=== PATIENT | female | born 1925 | race Caucasian/White ===

== ENCOUNTER 2017-08-25 17:36 | Inpatient (IN) ==
[2017-08-25] MEDS ORDERED: NS 1,000 ML IV ONE (18:02)
--- NOTE | 2017-08-25 18:06 | Emergency Department Report ---
SOB HPI - General Chief Complaint: Shortness of Breath/Dyspnea <Cathy Alejandro - 08/25/17 18:07> Stated Complaint: Weakness,aches <Cathy Alejandro - 08/25/17 18:07> Time Seen by Provider: 08/25/17 17:55 <Cathy Alejandro - 08/25/17 18:07> Source: patient, family () <Cathy Alejandor - 08/25/17 18:07> Mode of arrival: ambulatory <Cathy Alejandro - 08/25/17 18:07> Limitations: no limitations <Cathy Alejandro - 08/25/17 18:07> - History of Present Illness She was evaluated in ER a few days ago for weakness and shortness of breath. Had labs and chest xray and was diagnosed with pneumonia and sinusitis. Had been offered admission but she declined. She states that she has continued to get worse over the last few days. She has felt like she has had a fever but did not take her temp. She denies any nausea/vomiting or chest pain. She does not wear O2 at home but noted that her O2 sats are mid 70s on RA. She has been taking her Zithromax at home. Is wanting to be admitted since she is not feeling better at all. <Cathy Alejandro - 08/25/17 18:07> MD Complaint: shortness of breath <Cathy Alejandro - 08/25/17 18:07> Onset (ago): week(s) (for the last few weeks) <Cathy Alejandro - 08/25/17 18:07> Context: recent illness <Cathy Alejandro - 08/25/17 18:07> Severity: moderate <Cathy Alejandro - 08/25/17 18:07> Consistency/Duration: constant <Cathy Alejandro - 08/25/17 18:07> Relieving factors: nothing <Cathy Alejandro - 08/25/17 18:07> Exacerbating factors: exertion <Cathy Alejandro - 08/25/17 18:07> Known history of: other (pneumonia) <Cathy Alejandro - 08/25/17 18:07> Associated symptoms: fever, cough <Cathy Alejandro N - 08/25/17 18:07> Treatment prior to arrival: other (Zithromax) <Cathy Alejandro - 08/25/17 18:07> - Related Data Home Medications Medication Instructions Recorded Confirmed Losartan Potassium [Cozaar] 50 mg PO DAILY #0 08/11/11 08/25/17 Warfarin Sodium [Coumadin] 3 mg PO SUMOWEFR #0 04/25/15 08/25/17 Amlodipine [Norvasc] 5 mg PO DAILY 08/22/17 08/25/17 Aspirin [ASA] 325 mg PO PRN PRN 08/22/17 08/25/17 Cholecalciferol (Vitamin D3) 10,000 unit PO MOFR 08/22/17 08/25/17 [Maximum D3] Levothyroxine Tab [Synthroid] 88 mcg PO ACB 08/22/17 08/25/17 Warfarin [Coumadin] 2 mg PO TUTHSA 08/22/17 08/25/17 guaiFENesin [Mucinex] 600 mg PO Q12H PRN 08/22/17 08/25/17 Previous Rx's Medication Instructions Recorded Azithromycin 250 mg PO DAILY #6 tab 08/22/17 <Cathy Alejandro N - 08/25/17 18:07> Allergies Allergy/AdvReac Type Severity Reaction Status Date / Time cefadroxil Allergy Unknown Verified 08/25/17 17:54 ciprofloxacin AdvReac Intermediate UPSET Verified 08/25/17 17:54 STOMACH fluorouracil AdvReac Unknown Verified 08/25/17 17:54 gabapentin AdvReac Unknown Verified 08/25/17 17:54 sertalege AdvReac Mild Hallucinati Uncoded 08/22/17 12:22 ng <Cathy Alejandro N - 08/25/17 18:07> Review of Systems Constitutional: Reports: fever, chills, weakness <Cathy Alejandro - 08/25/17 18: 07> ENT: Denies: ear pain, throat pain, congestion <Cathy Alejandro - 08/25/17 18:07 > Cardiovascular: Denies: chest pain, palpitations, dyspnea on exertion, edema < Cathy Alejandro - 08/25/17 18:07> Respiratory: Reports: cough, dyspnea. Denies: wheezes, hemoptysis <Cathy Alejandro 08/25/17 18:07> Gastrointestinal: Denies: abdominal pain, nausea, vomiting, diarrhea <Cathy Alejandro 08/25/17 18:07> Integumentary: Denies: rash <Cathy Alejandro 08/25/17 18:07> Neurological: Denies: headache, weakness, numbness, paresthesias <Cathy Alejandro 08/25/17 18:07> [facility] Patient Stated Medical History Other HEENT Yes: sinus infection Hypertension Yes Hx Urinary Tract Infection Yes Clotting Problems Yes PE in the past Skin cancer with radiation Hypothyroidism <Cathy Alejandro 08/25/17 19:23> - Social History Smoking status: Never smoker <Cathy Alejandro 08/25/17 18:07> Physical Exam - Limitations Limitations: no limitations <Cathy Alejandro 08/25/17 18:07> - General General appearance: alert, in no apparent distress <Cathy Alejandro 08/25/17 18:07> - Normal Exams: ENMT:: No facial trauma, nasal exudates, pharyngeal erythema, or exudates are noted <Cathy Alejandro 08/25/17 18:07> Neck:: Full range of motion, without adenopathy, JVD, bruits or thyromegaly < Cathy Alejandro 08/25/17 18:07> Cardiovascular:: Regular rate and rhythm, without murmur or gallop, Pulses 2+ all extremities, capillary refill, <2 seconds all extremities <Cathy Alejandro 08/25/17 18:07> Abdomen:: Bowel sounds positive, soft, non-tender, non-distended, no hepatosplenomegaly, masses or bruits noted <Cathy Alejandro 08/25/17 18:07> Lymphatic:: No lymphadenopathy, or lymphedema noted <Cathy Alejandro 08/25/17 18:07> Integumentary:: No rashes, hives, or bruising noted <Cathy Alejandro 08/25/17 18:07> Neurological:: Patient is alert, and oriented <Cathy Alejandro - 08/25/17 18:07> Psychiatric:: Patient exhibits, appropriate attention, emotion and affect < Cathy Alejandro - 08/25/17 18:07> - Respiratory Respiratory exam: Present: crackles (in bilateral upper lobes) <Cathy Alejandro - 08/25/17 18:07> Course Vital Signs Temperature 98.4 F 08/25/17 17:40 Pulse Rate 93 08/25/17 17:40 Respiratory Rate 28 H 08/25/17 17:40 Blood Pressure 143/50 H 08/25/17 17:40 Pulse Oximetry 76 L 08/25/17 17:40 Temperature 98.6 F 08/25/17 21:15 Pulse Rate 76 08/25/17 21:37 Respiratory Rate 22 08/25/17 21:37 Blood Pressure 135/65 08/25/17 21:15 Pulse Oximetry 91 08/25/17 21:37 <Cathy Alejandro - 08/25/17 18:07> Shortness of Breath/Dyspnea - [facility] Narrative Medical decision making narrative: DD: dehydration, sepsis, pneumonia, UTI WBC is 10 with 82 neutrophils, 4 bands. INR is elevated at 4.11. Lactate is 2.0 , procalcitonin is normal. BUN 21, creatinine 1.5. Troponin is negative at 0.134. Did call and discuss findings of elevated troponin with Dr Schwartz. She does deny any chest pain and denies any cardiac history. He does agree to see patient in consult. Did speak with Dr Prather and she agrees to admission at this time. Chest xray does show pneumonia and she is allergic to Cipro and Cephalosporins. Unsure what her reaction is however. Has been on Zithromax. Dr Rivero will order antibiotic for admission course. <Cathy Alejandro - 08/25/17 22:02> - Lab Data Attestation: I reviewed the patient's lab results. <Cathy Alejandro - 08/25/17 22:02> Result diagrams: 08/25/17 18:36 08/25/17 18:36 <Cathy Alejandro - 08/25/17 18:07> Lab Results 08/25/17 08/25/17 08/25/17 Range/Units 18:36 18:36 18:36 WBC 10.0 (4.5-11.0) T/MM3 RBC 4.07 (4.00-5.20) M/MM3 Hgb 11.7 L (12-16) GM/DL Hct 36.2 (36-46) % MCV 88.9 (80-100) UM3 MCH 28.7 (26-34) UUG MCHC 32.3 (31-37) GM/DL RDW Std Deviation 44.5 (36.9-50.2) FL Plt Count 268 (130-400) T/MM3 MPV 10.8 (9.4-12.4) UM3 Immature Gran % (Auto) Not performed Neut % (Auto) Not performed Lymph % (Auto) Not performed Lea % (Auto) Not performed Eos % (Auto) Not performed Baso % (Auto) Not performed Neut # (Auto) Not performed Lymph # (Auto) Not performed Lea # (Auto) Not performed Eos # (Auto) Not performed Baso # (Auto) Not performed Abs Immat Gran (auto) Not performed Neutrophils % (Manual) 82.0 H (33-66) % Band Neutrophils % 4.0 (0-6) % Lymphocytes % (Manual) 5.0 L (23-45) % Monocytes % (Manual) 8.0 (0-9.0) % Eosinophils % (Manual) 1.0 (0-4) % Neutrophils # (Manual) 8.2 H (1.8-7.7) T/MM3 Band Neutrophils # 0.4 T/MM3 Lymphocytes # (Manual) 0.5 L (1-4.8) T/MM3 Monocytes # (Manual) 0.8 (0-0.8) T/MM3 Eosinophils # (Manual) 0.1 (0-0.5) T/MM3 Anisocytosis 1+ RBC Morph Comment Abnormal INR (0.99-1.21) Turbidity < 20 (0-20) Sodium 145 H (134-144) MEQ/L Potassium 3.8 (3.6-5) MEQ/L Chloride 110 H (98-107) MEQ/L Carbon Dioxide 25 (22-30) MEQ/L Anion Gap 10 (5-15) MEQ/L BUN 21.0 H (7-17) MG/DL Creatinine 1.5 H (0.7-1.2) MG/DL GFR Calculation 33 BUN/Creatinine Ratio 14 (6-26) RATIO Glucose 118 H (65-110) MG/DL Calculated Osmolality 283 H (261-280) MOSM/KG Calcium 8.7 (8.4-10.2) MG/DL Total Bilirubin 0.90 (0.20-1.30) MG/DL Icterus Index < 2 (0-7) AST 29 (14-36) U/L ALT 31 (9-52) U/L Alkaline Phosphatase 111 (38-126) U/L Troponin I 0.134 H (0-0.12) ng/ml Total Protein 7.2 (6.3-8.2) G/DL Albumin 3.2 L (3.5-5.0) G/DL Globulin 4.0 H (2.4-3.6) G/DL Albumin/Globulin Ratio 0.8 L (1.1-2.2) RATIO Plasma Lactate 2.0 (0.6-2.2) MMOL/L Procalcitonin 0.12 NG/ML Specimen Hemolysis < 15 (0-25) 08/25/17 Range/Units 18:37 WBC (4.5-11.0) T/MM3 RBC (4.00-5.20) M/MM3 Hgb (12-16) GM/DL Hct (36-46) % MCV (80-100) UM3 MCH (26-34) UUG MCHC (31-37) GM/DL RDW Std Deviation (36.9-50.2) FL Plt Count (130-400) T/MM3 MPV (9.4-12.4) UM3 Immature Gran % (Auto) Neut % (Auto) Lymph % (Auto) Lea % (Auto) Eos % (Auto) Baso % (Auto) Neut # (Auto) Lymph # (Auto) Lea # (Auto) Eos # (Auto) Baso # (Auto) Abs Immat Gran (auto) Neutrophils % (Manual) (33-66) % Band Neutrophils % (0-6) % Lymphocytes % (Manual) (23-45) % Monocytes % (Manual) (0-9.0) % Eosinophils % (Manual) (0-4) % Neutrophils # (Manual) (1.8-7.7) T/MM3 Band Neutrophils # T/MM3 Lymphocytes # (Manual) (1-4.8) T/MM3 Monocytes # (Manual) (0-0.8) T/MM3 Eosinophils # (Manual) (0-0.5) T/MM3 Anisocytosis RBC Morph Comment INR 4.11 H (0.99-1.21) Turbidity (0-20) Sodium (134-144) MEQ/L Potassium (3.6-5) MEQ/L Chloride (98-107) MEQ/L Carbon Dioxide (22-30) MEQ/L Anion Gap (5-15) MEQ/L BUN (7-17) MG/DL Creatinine (0.7-1.2) MG/DL GFR Calculation BUN/Creatinine Ratio (6-26) RATIO Glucose (65-110) MG/DL Calculated Osmolality (261-280) MOSM/KG Calcium (8.4-10.2) MG/DL Total Bilirubin (0.20-1.30) MG/DL Icterus Index (0-7) AST (14-36) U/L ALT (9-52) U/L Alkaline Phosphatase (38-126) U/L Troponin I (0-0.12) ng/ml Total Protein (6.3-8.2) G/DL Albumin (3.5-5.0) G/DL Globulin (2.4-3.6) G/DL Albumin/Globulin Ratio (1.1-2.2) RATIO Plasma Lactate (0.6-2.2) MMOL/L Procalcitonin NG/ML Specimen Hemolysis (0-25) <JavonCathy N - 08/25/17 19:21> - Radiology Data Attestation: I reviewed the patient's radiology results. < 19:30> CXR: Increased perihilar markings. Continued evidence of emphysema and pulm fibrosis. Likely superimposed PNA. <08/25/17 19:30> - EKG Data EKG #1 EKG attestation: Yes: I reviewed and interpreted this EKG. < 20:57> EKG shows normal: sinus rhythm, axis, intervals, QRS complexes, ST-T waves < 08/25/17 20:57> Rhythm: PAC's <MarchGovind M - 08/25/17 20:57> Disposition Clinical Impression: Hypoxia Pneumonia Qualifiers: Pneumonia type: due to unspecified organism Laterality: right Lung location: lower lobe of lung Qualified Code(s): J18.1 - Lobar pneumonia, unspecified organism <Cathy Alejandro N - 08/25/17 20:29> Disposition: 02 To [facility] [place] [facility] <Cathy Alejandro N - 08/25/17 20:29> Condition: Stable <Cathy Alejandro N - 08/25/17 20:29> Instructions: <Cathy Alejandro - 08/25/17 18:07> Prescriptions: No Action Aspirin [ASA] 325 mg PO PRN PRN PRN Reason: Pain Warfarin [Coumadin] 2 mg PO TUTHSA Amlodipine [Norvasc] 5 mg PO DAILY guaiFENesin [Mucinex] 600 mg PO Q12H PRN PRN Reason: Prn Orders Levothyroxine Tab [Synthroid] 88 mcg PO ACB Azithromycin 250 mg PO DAILY #6 tab Losartan Potassium [Cozaar] 50 mg PO DAILY #0 Warfarin Sodium [Coumadin] 3 mg PO SUMOWEFR #0 Cholecalciferol (Vitamin D3) [Maximum D3] 10,000 unit PO MOFR <Cathy Alejandro - 08/25/17 18:07> Referrals: Josh Gomes MD [Family Provider] - <Cathy Alejandro - 18:07> Forms: <Cathy Alejandro - 08/25/17 18:07> Time of Disposition: 20:29 <Cathy Alejandro - 08/25/17 20:29> - Seen By: midlevel <Cathy Alejandro - 08/25/17 20:29>
[2017-08-25] MEDS: SALINE FLUSH 10ml SYRINGE IVF PRN ×2 (18:39→21:39)
[2017-08-25] MEDS ORDERED: ONDANSETRON 4 MG/2 ML INJECTION IVP PRN (21:17)
[2017-08-25] MEDS ORDERED: DOCUSATE SODIUM 100 MG CAPSULE PO PRN (21:17)
--- NOTE | 2017-08-25 21:22 | History & Physical Report ---
<Alana Rivero Alecia - Last Filed: 08/25/17 22:43> History of Present Illness Date: 08/25/17 Chief complaint: SOA HPI: 89 yo F with PMH of PE currently on coumadin presented to the ED with reports of weakness and increased SOA. She was seen in the ED a few days ago and DX with PNA, sinusitis and started on Zithromax. She was offered admission, but declined at that time. She went home and did take her ABX as prescribed. But she continued to decline at home. She reports fevers and chills at home, but did not take her temp. She denies any nausea/vomiting or chest pain. She does not wear O2 at home but noted that her O2 sats are mid 70s on RA. She required 3 -4L NC to improve her sats. She was admitted for further care. PFSH - Social History Smoking status: Never smoker Medications Home Medications Medication Instructions Recorded Confirmed Type Losartan Potassium [Cozaar] 50 mg PO DAILY #0 08/11/11 08/25/17 History Warfarin Sodium [Coumadin] 3 mg PO SUMOWEFR #0 04/25/15 08/25/17 History Amlodipine [Norvasc] 5 mg PO DAILY 08/22/17 08/25/17 History Aspirin [ASA] 325 mg PO PRN PRN 08/22/17 08/25/17 History Cholecalciferol (Vitamin D3) 10,000 unit PO MOFR 08/22/17 08/25/17 History [Maximum D3] Levothyroxine Tab [Synthroid] 88 mcg PO ACB 08/22/17 08/25/17 History Warfarin [Coumadin] 2 mg PO TUTHSA 08/22/17 08/25/17 History guaiFENesin [Mucinex] 600 mg PO Q12H PRN 08/22/17 08/25/17 History Allergies Allergy/AdvReac Type Severity Reaction Status Date / Time gabapentin AdvReac Severe Hallucinati Verified 08/26/17 10:54 ng fluorouracil AdvReac Unknown Verified 08/25/17 17:54 sertalege AdvReac Mild Hallucinati Uncoded 08/22/17 12:22 ng Exam Vital Signs: Temperature 98.6 F 08/25/17 21:15 Pulse Rate 89 08/25/17 21:15 Respiratory Rate 18 08/25/17 21:15 Blood Pressure 135/65 08/25/17 21:15 Pulse Oximetry 90 08/25/17 20:45 - Routine Respiratory Exam Present: crackles (B/L lower lung zelaya). Absent: wheezes - Routine Cardiovascular Exam Present: RRR. Absent: murmur - Routine Abdominal Exam Present: soft, normoactive bowel sounds, non distended. Absent: tenderness - Routine Skin Exam Present: dry, warm - Routine Neurological Exam Present: alert, oriented X3, CN II-XII intact Results - Labs CBC & Chem 7: 08/25/17 18:36 08/25/17 18:36 Assessment and Plan (1) Hypoxia Current visit: Yes Status: Acute 08/25/17 22:40 Patient admitted and started on supplemental oxygen. Likely due to failure of outpatient treatment for CAP. start aggressive pulmonary toilet tonight. Attempt to titrate oxygen off during stay. (2) Pneumonia Current visit: Yes Status: Acute Patient on Zithromax as an outpatient, she failed this. Will start IV levaquin, mucinex and duonebs during her stay. She was not wheezing, will not order steroids at this time. repeat labs in the AM. 08/25/17 (3) Supratherapeutic INR Current visit: Yes Status: Acute 08/25/17 22:43 hold Coumadin for now. (4) Elevated troponin Current visit: Yes Status: Acute 08/25/17 22:42 Trend overnight. Cardiology to see in AM. DVT Prophylaxis: SCD's, Coumadin Resuscitation Status: Do Not Resuscitate Hospital Course Summary Disclaimer: The visit summary below is not to be considered part of the above Progress Note. <Monica Gonzalez - Last Filed: 08/26/17 11:37> History of Present Illness Date: 08/26/17 [facility] Patient Stated Medical History Glaucoma Yes Macular Degeneration Yes Other HEENT Yes: sinus infection Hypertension Yes Pneumonia Yes Pulmonary Embolism Yes Gastroesophageal Reflux Yes Disease Hx Urinary Tract Infection Yes Clotting Problems Yes Exam Vital Signs: Temperature 98.7 F 08/26/17 07:41 Pulse Rate 88 08/26/17 09:45 Respiratory Rate 18 08/26/17 09:44 Blood Pressure 133/69 08/26/17 08:30 Pulse Oximetry 91 08/26/17 10:15 Height/Weight/BMI: Height 5 ft 6 in Weight 190 lb 4.143 oz Body Mass Index 30.7 Results - Labs CBC & Chem 7: 08/26/17 01:11 08/26/17 01:11 Microbiology Results: Microbiology 08/26/17 06:42 Sputum, Expectorated Sputum Culture - Preliminary Culture Initiated - Results Pending Assessment and Plan (1) Pneumonia Current visit: Yes Status: Acute (2) Hypoxia Current visit: Yes Status: Acute (3) Supratherapeutic INR Current visit: Yes Status: Acute (4) Elevated troponin Current visit: Yes Status: Acute Assessment and Plan: Patient seen and examined, above reviewed with the findings above with the following additions. Informant is patient who is a somewhat vague historian, patient has been, and current records, computerized records. The patient is a 89-year-old white female who presents with a complaint of weakness for the last month which has been worsening to the point that she could hardly get from one chair to the other. She reports the weakness has been gradual over the last month. The patient reports when asked what her major problem is at this time that she has "sinus infection, inner ear infection, pneumonia". According to the patient ,she has had ongoing shortness of breath which is increased over the last month,occasionally present when she is laying still she. She can walk about 10 feet without becoming short of breath. She is currently on oxygen here in the hospital. She is not on oxygen at home. In addition she reports an occasional cough for the last 2-3 weeks, occasionally bloody in nature. Since starting azithromycin on Monday the amount of sputum has decreased. She also says it feels like the antibiotic helped loosen things in her throat and she's got some postnasal drip that is also bloody. The sinus symptoms she had earlier have improved she reports they're usually on involve the right side. 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 She does not know if she's been running a fever she has, she has not been recording her temperature, she does report she has occasional chills but no night sweats. The patient was initially seen in the emergency department on August 22 with weakness. At that time of her evaluation her temperature was 97.7, her pulse was 80, her respiratory rate was 18, her blood pressure was 144/65, and her O2 sat was 88% initially but increased to 98% an hour later. During that evaluation her d-dimer was 697, her INR was 2.38. Her white blood cell count was 6700 with 4.9% eosinophils 66% neutrophils 12.2% lymphocytes and 15.9% monocytes. On Monday, she was advised to be admitted to the hospital, but she declined. She was started on azithromycin with the diagnosis of atypical pneumonia, and sinusitis involving the maxillary area. She was given a azithromycin 500 mg by mouth loading in 2:15 milligrams daily for 4 days as well as Zyrtec. She reports some of her symptoms have improved on the azithromycin, but she still feels weak. She reported again to the emergency department yesterday with increasing shortness of breath. It was noted at that time her O2 sats were in the 70s on room air and she required 3-4 L of oxygen to improve her sats. She was admitted for further evaluation. 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 Josh Samayoa Fibromyalgia Recurrent dizziness Past surgical history: Hysterectomy Appendectomy Tonsillectomy Right neck lymph node dissection Knee surgery Allergies: After reviewing the patient's list of allergies and discussing with the patient it was established that the cefadroxil allergy that she has was a hallucinations during the same time she was taking sertalege, and she has taken cephalexin without problems. Therefore she isn't truly allergic to cephalosporins and will remove this from her list. In addition she has ciprofloxacin listed as nausea and vomiting, she is currently on levofloxacin and is tolerating without difficulty will remove that from her list as well. Therefore her allergies are gabapentin, fluorouracil. Personal history: She lives at home with her . She is originally from [facility]. 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 She does not smoke she does not drink alcohol. Immunizations: She believes she's had both pneumococcal vaccines, she has not had a shingles vaccine, she is due for an influenza vaccine as well as a Tdap. Family history Her father from heart disease, her mother from cancer of unknown type. Review of systems: The patient reports fevers chills and ,sweats. Her weight has been stable to slightly increased. HEENT: Right frontal headaches have resolved. It appears that she has had chronic sinus problems and inner ear problems on the right side since her radiation therapy. She reports these symptoms apparently are stable at this point, she please see azithromycin has helped with them. In the past she has had negative CT scans which have not shown sinusitis. She denies sore throat, she has sores in the mouth she believes are due to eating lots of tomatoes. No dental problems. Lungs: per history of present illness CV: No chest pain, occasional palpitations, in fact since admission she had chest fluttering which on telemetry corresponded with atrial fibrillation with rapid ventricular response which resolved after restarting her morning cardiac meds., He has had swelling of her feet and ankles recently but reports this is better but sometimes worse she has swelling all the way to her toes. GI: Minimal nausea, no vomiting, no diarrhea, occasional constipation,no blood in the stool, no dark-colored stools, no bright red blood per rectum. Last colonoscopy was about 5 years ago. : No dysuria, no hematuria, no flank pain. Musculoskeletal: No numbness or tingling in the arms or legs, generalized weakness. She reports that recently her thyroid medication dose was increased which has helped with the cramping that she had been feeling in her body. Skin: No skin rash In general, the patient is alert and oriented 3, cooperative with exam, and in no respiratory distress. HEENT: Head is atraumatic, normocephalic, no conjunctival petechiae, no oral thrush, mucous membranes are moist and pink. She has surgical changes along the right neck with scarring, there is no warmth or tenderness with palpation. Lungs: She has diffuse wheezes in the lung bases bilaterally,no crackles CV: Regular rate and rhythm without murmur, occasional extrasystole noted Abdomen: Soft, nontender, bowel sounds are present, there is no guarding no rebound. Extremities: No clubbing, no cyanosis, no edema. No Janeway lesions, no splitter hemorrhages, no Osler nodes. Skin: Warm and dry, no sign of rash Neuro: Patient is alert Chest x-ray was reviewed,- FINDINGS: Worsening emphysema and pulmonary fibrosis. Right apical pleural thickening. Scattered groundglass type opacities in the lung zelaya with areas of bronchial wall thickening. No lobar consolidative pneumonia. No pneumothorax or pleural effusion. Heart size and mediastinal contours are stable. Tortuous ectatic thoracic aorta. Impression: Emphysema and pulmonary fibrosis with possible superimposed edema or atypical pneumonia. Impression: Generalized weakness-suspect multifactorial. She does report some improvement in body cramping since increasing her thyroid Hypoxia- I believe her underlying issues may be more cardiac, question chronic pulmonary fibrosis patient has not seen a lyric writer in the past according to her. I do not believe she has pneumonia at this time Paroxysmal atrial fibrillation with rapid ventricular response Hypertension Squamous cell carcinoma skin cancer with metastases status post radiation therapy History of pulmonary embolus on warfarin Immunization status Plan: We'll ask cardiology to see. I wonder the patient may have underlying cardiac issues and may benefit from an echo and further evaluation. We'll keep on telemetry for now. Her Coumadin is on hold secondary to drug interactions of warfarin with a azithromycin, her INR is 4 We'll discontinue levofloxacin as it can prolong the QT interval as well Will give flu vaccine and Tdap Lab in am Hospital Course Summary Disclaimer: The visit summary below is not to be considered part of the above Progress Note.
[2017-08-25] MEDS ORDERED: LEVOFLOXACIN PB 750 MG/150 ML BAG IV SCH (21:30)
[2017-08-25] MEDS: NS 1,000 ML IV SCH (21:38)
[2017-08-25] MEDS: CETIRIZINE 10 MG TABLET PO SCH (22:48)
[2017-08-25] MEDS: GUAIFENESIN 400MG TABLET PO SCH (22:50)
[2017-08-26] MEDS ORDERED: ALBUTEROL/IPRATROPIUM 2.5mg-0.5mg/3ml NEB AEROSOL SCH ×2 (00:56→07:00)
[2017-08-26] MEDS ORDERED: ALBUTEROL 2.5mg/3ml (0.083%) NEB AEROSOL PRN (04:36)
[2017-08-26] MEDS: METHYLPREDNISOLONE SOD SUCC 125mg/2ml INJECTION IVP SCH ×4 (04:41→20:43)
[2017-08-26] MEDS: SALINE FLUSH 10ml SYRINGE IVF PRN ×2 (04:42→08:45)
[2017-08-26] MEDS: ALBUTEROL/IPRATROPIUM 2.5mg-0.5mg/3ml NEB AEROSOL SCH ×5 (04:44→20:49)
[2017-08-26] MEDS: LOSARTAN 50 MG TABLET PO SCH (08:45)
[2017-08-26] MEDS: GUAIFENESIN 400MG TABLET PO SCH ×2 (08:45→20:43)
[2017-08-26] MEDS: AMLODIPINE 5 MG TABLET PO SCH (08:45)
[2017-08-26] MEDS ORDERED: GUAIFENESIN 400MG TABLET PO SCH (09:00)
[2017-08-26] MEDS: NS 1,000 ML IV SCH ×2 (09:11→20:44)
[2017-08-26] MEDS ORDERED: INFLUENZA VAC High Dose 2017-18 (Fluzone HD*) (>=65yo) 0.5ml IM ONE (10:54)
[2017-08-26] MEDS ORDERED: TETANUS, DIPHTHERIA, a PERTUSSIS (Tdap) 0.5ml INJECTION IM ONE (10:55)
--- NOTE | 2017-08-26 11:21 | Cardiology Consult Note ---
<Maude Ortega - Last Filed: 08/28/17 14:47> History of Present Illness Consult date: 08/26/17 Requesting physician: Monica Gonzalez Chief complaint: hypoxia, A Fib with RVR History of present illness: Marie is a 89 year old female who is well known to Dr. Schwartz with a history of PE currently on Coumadin, HTN and nonrheumatic mitral and tricuspid valve insufficiency who presented to the ED with reports of weakness and increased SOA. She was seen in the ED a few days ago and DX with pneumonia, sinusitis and started on Zithromax. She was offered admission, but declined at that time. She went home and did take her ABX as prescribed. But she continued to decline at home. She reports fevers and chills at home, but did not take her temp. She denies any nausea/vomiting or chest pain. She does not wear O2 at home but noted that her O2 sats are mid 70s on RA. She required 3-4L NC to improve her sats. She was admitted to the hospitalist for further care. This morning she complained of her heart "fluttering" and rate was in the 120- 140s. She was given her home Losartan and Amlodipine by the RN and after about 30 minutes converted to SR. She reports never having felt this feeling before. She states she has had dyspnea for awhile and edema in her LE a lot of time but not today. She denies chest pain or pressure, tightness, nausea, diaphoresis. Review of Systems - Constitutional Constitutional: Present: chills, fatigue, fever(s), weakness - EENMT Eyes: Absent: change in vision Balance: Absent: vertigo Mouth/Throat: Absent: sore throat - Cardiovascular Cardiovascular: Present: palpitations, dyspnea on exertion, edema. Absent: chest pain, syncope Rhythm: Absent: abnormal rhythm Vascular: Present: pedal edema - Respiratory Respiratory: Present: cough, dyspnea, dyspnea on exertion - Gastrointestinal Gastrointestinal: Absent: abdominal pain, diarrhea, nausea, vomiting - Genitourinary Genitourinary: Absent: dysuria - Integumentary/Breasts Integumentary: Absent: rash - Neurological Neurological: Absent: dizziness - Endocrine Endocrine: Present: palpitations PFSH Patient Stated Medical History Glaucoma Yes Macular Degeneration Yes Other HEENT Yes: sinus infection Hypertension Yes Pneumonia Yes Pulmonary Embolism Yes Gastroesophageal Reflux Yes Disease Hx Urinary Tract Infection Yes Clotting Problems Yes Anxiety Depression Hypothyroidism Arthritis of the right knee Hypertension Chronic kidney disease stage III GFR 30-59 mL/min History of pulmonary embolus approximately 2013 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 Josh Samayoa Fibromyalgia Recurrent dizziness Surgical History: Hysterectomy. Appendectomy. Tonsillectomy. Right neck lymph node dissection. Knee surgery Family History: Her father from heart disease, her mother from cancer of unknown type. - Social History Smoking status: Never smoker Substance use type: does not use Alcohol intake frequency: does not drink Household members: spouse Current occupational status: retired Current residence: Apartment/Private Home Medications Home Medications Medication Instructions Recorded Confirmed Type Losartan Potassium [Cozaar] 50 mg PO DAILY #0 08/11/11 08/25/17 History Warfarin Sodium [Coumadin] 3 mg PO SUMOWEFR #0 04/25/15 08/25/17 History Amlodipine [Norvasc] 5 mg PO DAILY 08/22/17 08/25/17 History Aspirin [ASA] 325 mg PO PRN PRN 08/22/17 08/25/17 History Cholecalciferol (Vitamin D3) 10,000 unit PO MOFR 08/22/17 08/25/17 History [Maximum D3] Levothyroxine Tab [Synthroid] 88 mcg PO ACB 08/22/17 08/25/17 History Warfarin [Coumadin] 2 mg PO TUTHSA 08/22/17 08/25/17 History guaiFENesin [Mucinex] 600 mg PO Q12H PRN 08/22/17 08/25/17 History Allergies Allergy/AdvReac Type Severity Reaction Status Date / Time gabapentin AdvReac Severe Hallucinati Verified 08/26/17 10:54 ng fluorouracil AdvReac Unknown Verified 08/25/17 17:54 sertalege AdvReac Mild Hallucinati Uncoded 08/22/17 12:22 ng Exam Vital signs: Temperature 98.7 F 08/26/17 07:41 Pulse Rate 88 08/26/17 09:45 Respiratory Rate 18 08/26/17 09:44 Blood Pressure 133/69 08/26/17 08:30 Pulse Oximetry 91 08/26/17 10:15 - Constitutional no acute distress, well nourished, cooperative - Routine HEENT Exam Head: Present: normocephalic ENT: Present: mucous membranes moist - Routine Neck Exam Absent: JVD, carotid bruit - Routine Chest/Breast/Axilla Exam Chest wall: Absent: tenderness - Routine Respiratory Exam Present: rales (bibasilar). Absent: CTA bilaterally - Routine Cardiovascular Exam Present: RRR, no murmur. Absent: JVD - Routine Abdominal Exam Present: soft, normoactive bowel sounds - Routine Extremities Exam Present: no edema - Routine Skin Exam Present: intact, dry, warm - Routine Neurological Exam Present: alert, oriented X3 - Routine Psychiatric Exam Present: normal affect, normal thought process Results 08/27/17 14:05 08/27/17 14:05 Cardiac Enzymes 08/26/17 Range/Units 01:11 Troponin I 0.096 (0-0.12) ng/ml CBC 08/26/17 Range/Units 01:11 WBC 9.9 (4.5-11.0) T/MM3 RBC 3.99 L (4.00-5.20) M/MM3 Hgb 11.6 L (12-16) GM/DL Hct 35.6 L (36-46) % Plt Count 240 (130-400) T/MM3 Neut # (Auto) 6.5 (1.8-7.7) T/MM3 Lymph # (Auto) 1.6 (1-4.8) T/MM3 [place] # (Auto) 1.6 H (0-0.8) T/MM3 Eos # (Auto) 0.2 (0-0.5) T/MM3 Baso # (Auto) 0.0 (0-0.2) T/MM3 Comprehensive Metabolic Panel 08/26/17 Range/Units 01:11 Sodium 144 (134-144) MEQ/L Potassium 3.7 (3.6-5) MEQ/L Chloride 110 H (98-107) MEQ/L Carbon Dioxide 23 (22-30) MEQ/L BUN 19.0 H (7-17) MG/DL Creatinine 1.2 D (0.7-1.2) MG/DL Glucose 94 (65-110) MG/DL Calcium 8.4 (8.4-10.2) MG/DL Intake and Output 08/25/17 08/26/17 08/26/17 22:59 06:59 14:59 Intake Total 1004 800 / 800 970 / 970 Balance 1004 800 / 800 970 / 970 Intake: IV 5 5 150 / 150 970 / 970 Levofloxacin Pb 750 mg In 150 / 150 150 ml @ 100 mls/hr IV Q24H ANNE-MARIE Rx#:[id number] Ns 1,000 ml @ 100 mls/hr 5 / 5 0 / 0 970 / 970 IV .Q10H ANNE-MARIE Rx#: [id number] Oral 650 / 650 Other: # Voids 1 Weight 190 lb 7.67 oz 190 lb 4.143 oz Patient Weight 08/27/17 06:59 Weight 190 lb 4.143 oz Abnormal Lab Results 08/25/17 08/25/17 08/25/17 18:36 18:36 18:36 WBC 10.0 RBC 4.07 Hgb 11.7 L Hct 36.2 MCV 88.9 MCH 28.7 MCHC 32.3 RDW Std Deviation 44.5 Plt Count 268 MPV 10.8 Immature Gran % (Auto) Not performed Neut % (Auto) Not performed Lymph % (Auto) Not performed [place] % (Auto) Not performed Eos % (Auto) Not performed Baso % (Auto) Not performed Neut # (Auto) Not performed Lymph # (Auto) Not performed [place] # (Auto) Not performed Eos # (Auto) Not performed Baso # (Auto) Not performed Abs Immat Gran (auto) Not performed Neutrophils % (Manual) 82.0 H Band Neutrophils % 4.0 Lymphocytes % (Manual) 5.0 L Monocytes % (Manual) 8.0 Eosinophils % (Manual) 1.0 Neutrophils # (Manual) 8.2 H Band Neutrophils # 0.4 Lymphocytes # (Manual) 0.5 L Monocytes # (Manual) 0.8 Eosinophils # (Manual) 0.1 Anisocytosis 1+ RBC Morph Comment Abnormal INR Turbidity < 20 Sodium 145 H Potassium 3.8 Chloride 110 H Carbon Dioxide 25 Anion Gap 10 BUN 21.0 H Creatinine 1.5 H GFR Calculation 33 BUN/Creatinine Ratio 14 Glucose 118 H Calculated Osmolality 283 H Calcium 8.7 Total Bilirubin 0.90 Icterus Index < 2 AST 29 ALT 31 Alkaline Phosphatase 111 Creatine Kinase Troponin I 0.134 H Total Protein 7.2 Albumin 3.2 L Globulin 4.0 H Albumin/Globulin Ratio 0.8 L Plasma Lactate 2.0 Procalcitonin 0.12 Specimen Hemolysis < 15 Ur Collection Type Urine Color Urine Clarity Urine pH Ur Specific [place] Urine Protein Urine Glucose (UA) Urine Ketones Urine Occult Blood Urine Nitrate Urine Bilirubin Urine Urobilinogen Ur Leukocyte Esterase Urine RBC Urine WBC Urine Bacteria Ur Culture Indicated? 08/25/17 08/25/17 08/26/17 18:37 22:07 00:43 WBC RBC Hgb Hct MCV MCH MCHC RDW Std Deviation Plt Count MPV Immature Gran % (Auto) Neut % (Auto) Lymph % (Auto) [place] % (Auto) Eos % (Auto) Baso % (Auto) Neut # (Auto) Lymph # (Auto) [place] # (Auto) Eos # (Auto) Baso # (Auto) Abs Immat Gran (auto) Neutrophils % (Manual) Band Neutrophils % Lymphocytes % (Manual) Monocytes % (Manual) Eosinophils % (Manual) Neutrophils # (Manual) Band Neutrophils # Lymphocytes # (Manual) Monocytes # (Manual) Eosinophils # (Manual) Anisocytosis RBC Morph Comment INR 4.11 H Turbidity Sodium Potassium Chloride Carbon Dioxide Anion Gap BUN Creatinine GFR Calculation BUN/Creatinine Ratio Glucose Calculated Osmolality Calcium Total Bilirubin Icterus Index AST ALT Alkaline Phosphatase Creatine Kinase Troponin I Total Protein Albumin Globulin Albumin/Globulin Ratio Plasma Lactate 0.9 Procalcitonin Specimen Hemolysis Ur Collection Type Urine, clean catch Urine Color Yellow Urine Clarity Clear Urine pH 5.5 Ur Specific [place] 1.025 Urine Protein 1+ A Urine Glucose (UA) Negative Urine Ketones Trace A Urine Occult Blood 2+ A Urine Nitrate Negative Urine Bilirubin Negative Urine Urobilinogen 0.2 Ur Leukocyte Esterase Negative Urine RBC 5-10 H Urine WBC 0-1 Urine Bacteria None seen Ur Culture Indicated? Cult not indicated 08/26/17 08/26/17 08/26/17 01:11 01:11 01:11 WBC 9.9 RBC 3.99 L Hgb 11.6 L Hct 35.6 L MCV 89.2 MCH 29.1 MCHC 32.6 RDW Std Deviation 44.9 Plt Count 240 MPV 10.2 Immature Gran % (Auto) 0.3 Neut % (Auto) 65.5 Lymph % (Auto) 15.8 L [place] % (Auto) 15.8 H Eos % (Auto) 2.3 Baso % (Auto) 0.3 Neut # (Auto) 6.5 Lymph # (Auto) 1.6 [place] # (Auto) 1.6 H Eos # (Auto) 0.2 Baso # (Auto) 0.0 Abs Immat Gran (auto) 0.03 Neutrophils % (Manual) Band Neutrophils % Lymphocytes % (Manual) Monocytes % (Manual) Eosinophils % (Manual) Neutrophils # (Manual) Band Neutrophils # Lymphocytes # (Manual) Monocytes # (Manual) Eosinophils # (Manual) Anisocytosis RBC Morph Comment INR Turbidity < 20 Sodium 144 Potassium 3.7 Chloride 110 H Carbon Dioxide 23 Anion Gap 11 BUN 19.0 H Creatinine 1.2 D GFR Calculation 42 BUN/Creatinine Ratio 16 Glucose 94 Calculated Osmolality 279 Calcium 8.4 Total Bilirubin Icterus Index < 2 AST ALT Alkaline Phosphatase Creatine Kinase 129 Troponin I 0.096 Total Protein Albumin Globulin Albumin/Globulin Ratio Plasma Lactate Procalcitonin Specimen Hemolysis < 15 < 15 Ur Collection Type Urine Color Urine Clarity Urine pH Ur Specific [place] Urine Protein Urine Glucose (UA) Urine Ketones Urine Occult Blood Urine Nitrate Urine Bilirubin Urine Urobilinogen Ur Leukocyte Esterase Urine RBC Urine WBC Urine Bacteria Ur Culture Indicated? - Imaging and Cardiology Echo: pending EKG results: image reviewed Imaging & Cardiology Narrative: FINDINGS: Worsening emphysema and pulmonary fibrosis. Right apical pleural thickening. Scattered groundglass type opacities in the lung zelaya with areas of bronchial wall thickening. No lobar consolidative pneumonia. No pneumothorax or pleural effusion. Heart size and mediastinal contours are stable. Tortuous ectatic thoracic aorta. Impression: Emphysema and pulmonary fibrosis with possible superimposed edema or atypical pneumonia. EKG interpretations - Dysrhythmias Supraventricular dysrhythmia: atrial fibrillation Assessment and Plan - Assessment and Plan (1) Atrial fibrillation with RVR Current visit: Yes Status: Acute Patient reported "fluttering" heart beat. - denies history of arrhythmia - Converted after 30minutes or so - Continue to monitor cardiac telemetry - Anticoagulated on Coumadin, INR 4.11 - TSH, Mag pending - Start Flecainide 50mg by mouth BID (Levaquin discontinued) - Obtain echo to evaluate EF and structural disease. I examined the patient independently, review the chart and discussed finding with Dr. Schwartz. He agrees with the plan of care. Thank you for allowing us to participate in the care of this patient. (2) Hypoxia Current visit: Yes Status: Acute Echo to measure EF, PAP - Could be chronic pulmonary fibrosis - Dr Gonzalez does not feel as if cause is pneumonia (3) Elevated troponin Current visit: Yes Status: Acute Troponin 0.134 on admission, trending down, last 0.096. - Obtain next troponin now (4) Supratherapeutic INR Current visit: Yes Status: Acute Coumadin is being held as supratherapeutic INR, due to Zithromax and Coumadin interaction (5) Essential (primary) hypertension Current visit: Yes Status: Chronic Continue home Losartan and Amlodipine (6) Personal history of pulmonary embolism Current visit: Yes Status: Chronic (7) Nonrheumatic mitral valve insufficiency Current visit: Yes Status: Chronic (8) Non-rheumatic tricuspid valve insufficiency Current visit: Yes Status: Chronic Hospital Course Summary Disclaimer: The visit summary below is not to be considered part of the above Progress Note. <Tristen Schwartz - Last Filed: 08/29/17 08:44> [facility] Patient Stated Medical History Glaucoma Yes Macular Degeneration Yes Other HEENT Yes: sinus infection Hypertension Yes Pneumonia Yes Pulmonary Embolism Yes Gastroesophageal Reflux Yes Disease Hx Urinary Tract Infection Yes Clotting Problems Yes Exam Vital signs: Temperature 96.3 F L 08/29/17 07:37 Pulse Rate 73 08/29/17 07:37 Respiratory Rate 34 H 08/29/17 07:48 Blood Pressure 138/75 08/29/17 07:37 Pulse Oximetry 93 08/29/17 07:48 Results 08/29/17 05:15 08/29/17 05:15 Cardiac Enzymes 08/28/17 08/29/17 Range/Units 13:35 05:15 AST 44 H (14-36) U/L B-Natriuretic Peptide 3240 H (0-175) pg/mL Coagulation 08/28/17 Range/Units 13:35 B-Natriuretic Peptide 3240 H (0-175) pg/mL CBC 08/29/17 Range/Units 05:15 WBC 15.0 H (4.5-11.0) T/MM3 RBC 3.61 L (4.00-5.20) M/MM3 Hgb 10.3 L (12-16) GM/DL Hct 32.3 L (36-46) % Plt Count 160 D (130-400) T/MM3 Neut # (Auto) Not performed Lymph # (Auto) Not performed [place] # (Auto) Not performed Eos # (Auto) Not performed Baso # (Auto) Not performed Comprehensive Metabolic Panel 08/29/17 Range/Units 05:15 Sodium 147 H (134-144) MEQ/L Potassium 3.9 (3.6-5) MEQ/L Chloride 113 H (98-107) MEQ/L Carbon Dioxide 26 (22-30) MEQ/L BUN 39.0 H (7-17) MG/DL Creatinine 1.4 H D (0.7-1.2) MG/DL Glucose 124 H (65-110) MG/DL Calcium 8.5 (8.4-10.2) MG/DL AST 44 H (14-36) U/L ALT 47 (9-52) U/L Alkaline Phosphatase 149 H (38-126) U/L Total Protein 6.6 (6.3-8.2) G/DL Albumin 3.0 L (3.5-5.0) G/DL Intake and Output 08/28/17 08/29/17 08/29/17 22:59 06:59 14:59 Intake Total 100 / 100 Output Total 1250 / 1250 450 / 450 Balance -1150 / -1150 -450 / -450 Intake: Oral 100 / 100 Output: Urine Amount (Catheter) 1250 / 1250 450 / 450 Other: Urine Appearance Clear Urine Color Pale Yellow Weight 90.3 kg Patient Weight 08/30/17 06:59 Weight 90.3 kg Assessment and Plan - Attestation Attestation Narrative: 08/29/17 08:44 Recommendation After examining the patient I agree with the above assessment. I am involved in the formulation of the patient's plan of care. - Assessment and Plan (1) Hypoxia Current visit: Yes Status: Acute (2) Supratherapeutic INR Current visit: Yes Status: Acute (3) Elevated troponin Current visit: Yes Status: Acute (4) Atrial fibrillation with RVR Current visit: Yes Status: Acute (5) Essential (primary) hypertension Current visit: Yes Status: Chronic (6) Personal history of pulmonary embolism Current visit: Yes Status: Chronic (7) Nonrheumatic mitral valve insufficiency Current visit: Yes Status: Chronic (8) Non-rheumatic tricuspid valve insufficiency Current visit: Yes Status: Chronic (9) Congestive heart failure (CHF) Current visit: Yes Status: Acute Hospital Course Summary Disclaimer: The visit summary below is not to be considered part of the above Progress Note.
[2017-08-26] MEDS: FLECAINIDE 50 MG TABLET PO SCH ×2 (13:40→20:43)
[2017-08-26] MEDS ORDERED: INFLUENZA VAC. INJ. ADMIN CHARGE INJ ONE (13:45)
[2017-08-26] MEDS ORDERED: Tdap VACCINE ADMINISTR CHARGE INJ ONE (13:45)
[2017-08-26] MEDS: HYDROCODONE/APAP 5mg/325mg TABLET PO PRN (20:42)
[2017-08-26] MEDS: CETIRIZINE 10 MG TABLET PO SCH (20:43)
[2017-08-26] MEDS ORDERED: CETIRIZINE 10 MG TABLET PO SCH (21:00)
[2017-08-27] MEDS: ALBUTEROL/IPRATROPIUM 2.5mg-0.5mg/3ml NEB AEROSOL SCH ×6 (00:36→20:04)
[2017-08-27] MEDS: METHYLPREDNISOLONE SOD SUCC 125mg/2ml INJECTION IVP SCH ×4 (03:47→21:49)
[2017-08-27] MEDS: HYDROCODONE/APAP 5mg/325mg TABLET PO PRN (03:56)
[2017-08-27] MEDS: MENTHOL COUGH DROPS (RICOLA) MM PRN ×2 (04:00→22:17)
[2017-08-27] MEDS: NS 1,000 ML IV SCH ×2 (05:52→15:49)
[2017-08-27] MEDS ORDERED: LEVOFLOXACIN PB 750 MG/150 ML BAG IV SCH (09:00)
[2017-08-27] MEDS: FLECAINIDE 50 MG TABLET PO SCH ×2 (09:26→21:48)
[2017-08-27] MEDS: AMLODIPINE 5 MG TABLET PO SCH (09:26)
[2017-08-27] MEDS: GUAIFENESIN 400MG TABLET PO SCH ×2 (09:26→21:47)
[2017-08-27] MEDS: LOSARTAN 50 MG TABLET PO SCH (09:34)
[2017-08-27] MEDS: LEVOTHYROXINE 88 MCG TABLET PO SCH (09:37)
[2017-08-27] MEDS: SALINE FLUSH 10ml SYRINGE IVF PRN ×3 (09:38→21:47)
--- NOTE | 2017-08-27 10:20 | XRay Report ---
INDICATION: dyspnea PROCEDURE: CHEST 2-VIEWS UPRIGHT (PA & LAT) Encounter: Initial COMPARISON: August 22, 2017 FINDINGS: Lungs are abnormal but grossly stable with fibrotic changes, emphysema and scattered opacities bilaterally. No pneumothorax. No gross pleural effusion. Heart size and mediastinal contours are stable. Tortuous ectatic thoracic aorta. Impression: Stable abnormal appearance of the chest. .
--- NOTE | 2017-08-27 10:53 | XRay Report ---
INDICATION: hypoxia PROCEDURE: CHEST 2-VIEWS UPRIGHT (PA & LAT) Encounter: Initial COMPARISON: August 25, 2017 FINDINGS: No change in appearance of the abnormal lung zelaya with severe emphysema and fibrosis allowing for differences in exposure technique. No pneumothorax or definite effusion. Heart size and mediastinal contours are stable. Hiatal hernia. Pulmonary vascularity is difficult to distinguish given the diffuse abnormalities. Impression: Stable abnormal appearance of the chest. Findings may represent a combination of emphysema, fibrosis and atypical/viral pneumonia or edema. Recommend clinical and laboratory correlation. .
[2017-08-27] MEDS ORDERED: WARFARIN - PHARMACY CONSULT MC ONE (13:30)
--- NOTE | 2017-08-27 13:42 | Progress Note ---
- Date 08/27/17 Subjective: Patient sitting in bed eating lunch during visit. States she is feeling better today, but not better enough to go home yet. Her is concerned that he would be unable to help her up if she were to fall and that he cannot manage her due to her weakness. Objective Vital signs: Temperature 95.1 F L 08/27/17 07:54 Pulse Rate 72 08/27/17 07:54 Respiratory Rate 18 08/27/17 11:50 Blood Pressure 117/65 08/27/17 07:54 Pulse Oximetry 93 08/27/17 11:50 Height/Weight/BMI: Height 1.68 m Weight 89 kg Body Mass Index 30.7 - Constitutional Present: no acute distress - Routine HEENT Exam Head: Present: normocephalic Eye: Present: EOMI, PERRL - Routine Respiratory Exam Present: wheezes, crackles - Routine Cardiovascular Exam Present: no murmur, irregularly irregular - Routine Abdominal Exam Present: soft, non distended, non tender Results - Labs CBC & Chem 7: 08/27/17 04:34 08/27/17 04:34 Microbiology Results: Microbiology 08/26/17 06:42 Sputum, Expectorated Gram Stain - Final 08/26/17 06:42 Sputum, Expectorated Sputum Culture - Preliminary Early growth Assessment and Plan Assessment and Plan: Patient seen and examined, above reviewed with the findings above with the following additions. Informant is patient who is a somewhat vague historian, patient has been, and current records, computerized records. The patient is a 89-year-old white female who presents with a complaint of weakness for the last month which has been worsening to the point that she could hardly get from one chair to the other. She reports the weakness has been gradual over the last month. The patient reports when asked what her major problem is at this time that she has "sinus infection, inner ear infection, pneumonia". According to the patient ,she has had ongoing shortness of breath which is increased over the last month,occasionally present when she is laying still she. She can walk about 10 feet without becoming short of breath. She is currently on oxygen here in the hospital. She is not on oxygen at home. In addition she reports an occasional cough for the last 2-3 weeks, occasionally bloody in nature. Since starting azithromycin on Monday the amount of sputum has decreased. She also says it feels like the antibiotic helped loosen things in her throat and she's got some postnasal drip that is also bloody. The sinus symptoms she had earlier have improved she reports they're usually on involve the right side. 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 She does not know if she's been running a fever she has, she has not been recording her temperature, she does report she has occasional chills but no night sweats. The patient was initially seen in the emergency department on August 22 with weakness. At that time of her evaluation her temperature was 97.7, her pulse was 80, her respiratory rate was 18, her blood pressure was 144/65, and her O2 sat was 88% initially but increased to 98% an hour later. During that evaluation her d-dimer was 697, her INR was 2.38. Her white blood cell count was 6700 with 4.9% eosinophils 66% neutrophils 12.2% lymphocytes and 15.9% monocytes. On Monday, she was advised to be admitted to the hospital, but she declined. She was started on azithromycin with the diagnosis of atypical pneumonia, and sinusitis involving the maxillary area. She was given a azithromycin 500 mg by mouth loading in 2:15 milligrams daily for 4 days as well as Zyrtec. She reports some of her symptoms have improved on the azithromycin, but she still feels weak. She reported again to the emergency department yesterday with increasing shortness of breath. It was noted at that time her O2 sats were in the 70s on room air and she required 3-4 L of oxygen to improve her sats. She was admitted for further evaluation. 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 Josh Samayoa Fibromyalgia Recurrent dizziness Past surgical history: Hysterectomy Appendectomy Tonsillectomy Right neck lymph node dissection Knee surgery Allergies: After reviewing the patient's list of allergies and discussing with the patient it was established that the cefadroxil allergy that she has was a hallucinations during the same time she was taking sertalege, and she has taken cephalexin without problems. Therefore she isn't truly allergic to cephalosporins and will remove this from her list. In addition she has ciprofloxacin listed as nausea and vomiting, she is currently on levofloxacin and is tolerating without difficulty will remove that from her list as well. Therefore her allergies are gabapentin, fluorouracil. Personal history: She lives at home with her . She is originally from [facility]. 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 She does not smoke she does not drink alcohol. Immunizations: She believes she's had both pneumococcal vaccines, she has not had a shingles vaccine, she is due for an influenza vaccine as well as a Tdap. Family history Her father from heart disease, her mother from cancer of unknown type. Review of systems: The patient reports fevers chills and ,sweats. Her weight has been stable to slightly increased. HEENT: Right frontal headaches have resolved. It appears that she has had chronic sinus problems and inner ear problems on the right side since her radiation therapy. She reports these symptoms apparently are stable at this point, she please see azithromycin has helped with them. In the past she has had negative CT scans which have not shown sinusitis. She denies sore throat, she has sores in the mouth she believes are due to eating lots of tomatoes. No dental problems. Lungs: per history of present illness CV: No chest pain, occasional palpitations, in fact since admission she had chest fluttering which on telemetry corresponded with atrial fibrillation with rapid ventricular response which resolved after restarting her morning cardiac meds., He has had swelling of her feet and ankles recently but reports this is better but sometimes worse she has swelling all the way to her toes. GI: Minimal nausea, no vomiting, no diarrhea, occasional constipation,no blood in the stool, no dark-colored stools, no bright red blood per rectum. Last colonoscopy was about 5 years ago. : No dysuria, no hematuria, no flank pain. Musculoskeletal: No numbness or tingling in the arms or legs, generalized weakness. She reports that recently her thyroid medication dose was increased which has helped with the cramping that she had been feeling in her body. Skin: No skin rash In general, the patient is alert and oriented 3, cooperative with exam, and in no respiratory distress. HEENT: Head is atraumatic, normocephalic, no conjunctival petechiae, no oral thrush, mucous membranes are moist and pink. She has surgical changes along the right neck with scarring, there is no warmth or tenderness with palpation. Lungs: She has diffuse wheezes in the lung bases bilaterally,no crackles CV: Regular rate and rhythm without murmur, occasional extrasystole noted Abdomen: Soft, nontender, bowel sounds are present, there is no guarding no rebound. Extremities: No clubbing, no cyanosis, no edema. No Janeway lesions, no splitter hemorrhages, no Osler nodes. Skin: Warm and dry, no sign of rash Neuro: Patient is alert Chest x-ray was reviewed,- FINDINGS: Worsening emphysema and pulmonary fibrosis. Right apical pleural thickening. Scattered groundglass type opacities in the lung zelaya with areas of bronchial wall thickening. No lobar consolidative pneumonia. No pneumothorax or pleural effusion. Heart size and mediastinal contours are stable. Tortuous ectatic thoracic aorta. Impression: Emphysema and pulmonary fibrosis with possible superimposed edema or atypical pneumonia. Impression: Generalized weakness-suspect multifactorial. She does report some improvement in body cramping since increasing her thyroid Hypoxia- I believe her underlying issues may be more cardiac, question chronic pulmonary fibrosis patient has not seen a commercial attorney in the past according to her. I do not believe she has pneumonia at this time Paroxysmal atrial fibrillation with rapid ventricular response Hypertension Squamous cell carcinoma skin cancer with metastases status post radiation therapy History of pulmonary embolus on warfarin Immunization status Plan: We'll ask cardiology to see. I wonder the patient may have underlying cardiac issues and may benefit from an echo and further evaluation. We'll keep on telemetry for now. Her Coumadin is on hold secondary to drug interactions of warfarin with a azithromycin, her INR is 4 We'll discontinue levofloxacin as it can prolong the QT interval as well Will give flu vaccine and Tdap Lab in am 08/27/2017 (1) Atrial fibrillation with RVR - Continue to monitor cardiac telemetry - Anticoagulated on Coumadin - Flecainide 50mg started, pt without obvious side effects (2) Hypoxia - 2D Echo pending - chronic pulmonary fibrosis vs Pneumonia. - Levaquin d/c yesterday and steroids continued. Pt does feel "some" better today. - cbc,cmp in am (3) Elevated troponin - Resolved (4) Supratherapeutic INR - Pharmacy consulted today for management of INR as INR ben today to >6 (5) Essential (primary) hypertension - Stable Hospital Course Summary Disclaimer: The visit summary below is not to be considered part of the above Progress Note. Hospital Course: 08/27/17 13:42 08/27/2017 (1) Atrial fibrillation with RVR - Continue to monitor cardiac telemetry - Anticoagulated on Coumadin - Flecainide 50mg started, pt without obvious side effects (2) Hypoxia - 2D Echo pending - chronic pulmonary fibrosis vs Pneumonia. - Levaquin d/c yesterday and steroids continued. Pt does feel "some" better today. - cbc,cmp in am (3) Elevated troponin - Resolved (4) Supratherapeutic INR - Pharmacy consulted today for management of INR as INR ben today to >6 (5) Essential (primary) hypertension - Stable Joo Ulrich M.D.
--- NOTE | 2017-08-27 13:48 | Pharmacy Consult ---
Pharmacy Consult-Warfarin - Laboratory Information 08/27/17 04:34 INR 6.91 H* - Consult Information Warfarin consult noted for Ms Staples. Elevated INR but no clinical signs of bleeding so will not order Vitamin K at this time. Thank you.
[2017-08-27] MEDS ORDERED: FUROSEMIDE 20 MG/2 ML INJECTION IVP ONE (19:20)
[2017-08-27] MEDS: CETIRIZINE 10 MG TABLET PO SCH (21:48)
[2017-08-27] MEDS ORDERED: FALL RISK - PHARMACY CONSULT MC ONE (22:08)
[2017-08-28] MEDS: ALBUTEROL/IPRATROPIUM 2.5mg-0.5mg/3ml NEB AEROSOL SCH ×6 (00:08→20:25)
[2017-08-28] MEDS: METHYLPREDNISOLONE SOD SUCC 125mg/2ml INJECTION IVP SCH ×4 (02:50→20:07)
[2017-08-28] MEDS: SALINE FLUSH 10ml SYRINGE IVF PRN ×5 (02:50→20:08)
[2017-08-28] MEDS: LEVOTHYROXINE 88 MCG TABLET PO SCH (05:44)
[2017-08-28] MEDS: MENTHOL COUGH DROPS (RICOLA) MM PRN ×2 (05:44→15:31)
[2017-08-28] MEDS ORDERED: PHYTONADIONE 1 MG/0.5 ML ORAL LIQUID PO ONE ×2 (06:10→17:00)
[2017-08-28] MEDS ORDERED: LEVOTHYROXINE 88 MCG TABLET PO SCH (06:30)
[2017-08-28] MEDS ORDERED: FUROSEMIDE 40 MG/4 ML INJECTION IVP ONE ×2 (08:25→09:00)
--- NOTE | 2017-08-28 09:20 | Progress Note ---
- Date 08/28/17 Subjective: F/U: Acute hypoxic respiratory failure Rough night-O2 needs increased. Breathing feels more labored. BiPAP started to help decrease work of breathing. Does report cough/congestion. No pain with breathing. Not really liking the BiPAP. Slight nausea. Appetite decreased this am. Feels very tired and weak. Communicates well, but hard to hear her speak with the BiPAP on. Objective Vital signs: Temperature 96.6 F L 08/27/17 23:28 Pulse Rate 71 08/28/17 00:00 Respiratory Rate 40 H 08/28/17 08:00 Blood Pressure 136/53 08/27/17 23:28 Pulse Oximetry 92 08/28/17 08:22 Height/Weight/BMI: Height 1.68 m Weight 89 kg Body Mass Index 30.7 - Constitutional Present: moderate distress, well nourished, well developed, obese, cooperative. Absent: agitated - Routine HEENT Exam Head: Present: normocephalic, atraumatic ENT: Present: mucous membranes moist - Routine Respiratory Exam Present: decreased breath sounds, respiratory distress, distant breath sounds, diminished air movement. Absent: rales, wheezes - Routine Cardiovascular Exam Present: RRR, no murmur - Routine Abdominal Exam Present: soft, non distended, non tender. Absent: normoactive bowel sounds ( Decreased ) - Routine Extremities Exam Present: cyanosis, clubbing, edema (+1 BLE ), pulses intact - Routine Musculoskeletal Exam Musculoskeletal: Present: no clubbing or cyanosis - Routine Skin Exam Present: dry, warm - Routine Neurological Exam Present: alert, oriented X3, CN II-XII intact, moving all extremities, vision grossly intact, hearing grossly intact. Absent: altered mental status - Routine Psychiatric Exam Present: normal affect, normal thought process, cooperative. Absent: anxious, agitated Results - Labs CBC & Chem 7: 08/28/17 04:45 08/28/17 04:45 Microbiology Results: Microbiology 08/26/17 06:42 Sputum, Expectorated Gram Stain - Final 08/26/17 06:42 Sputum, Expectorated Sputum Culture - Preliminary Early growth Assessment and Plan (1) Pneumonia Current visit: Yes Status: Acute (2) Hypoxia Current visit: Yes Status: Acute (3) Supratherapeutic INR Current visit: Yes Status: Acute (4) Elevated troponin Current visit: Yes Status: Acute DVT Prophylaxis: Coumadin Resuscitation Status: Do Not Resuscitate Assessment and Plan: Assessment Acute hypoxic respiratory failure Pulmonary edema - increasing from admission Suspect pulmonary fibrosis Possible pneumonia Leukocytosis COPD/Emphysema Stage III CKD HTN Afib with RVR Anticoagulation with Coumadin - INR elevated Plan BiPAP to help with ventilatory support. Will start Rocephin for pulmonary coverage. Lasix 40mg given to help decrease pulmonary edema - Conley place to monitor urine output. Decrease Solu-medrol to 62.5mg IV q 6 hours Hold losartan as creatinine with slight increase to 1.6. Continue DuoNeb breathing treatment routinely, adding Budesonide 0.5mg nebulized BID. Coumadin on hold as INR increased to 8.93. Monitor lab. Case discussed with nursing. Time spent with patient care 25 minutes. - Time spent with patient Time with patient PN: 25 minutes Hospital Course Summary Disclaimer: The visit summary below is not to be considered part of the above Progress Note. Hospital Course: Impression: Generalized weakness-suspect multifactorial. She does report some improvement in body cramping since increasing her thyroid Hypoxia- I believe her underlying issues may be more cardiac, question chronic pulmonary fibrosis patient has not seen a sales market leader in the past according to her. I do not believe she has pneumonia at this time Paroxysmal atrial fibrillation with rapid ventricular response Hypertension Squamous cell carcinoma skin cancer with metastases status post radiation therapy History of pulmonary embolus on warfarin Plan: We'll ask cardiology to see. I wonder the patient may have underlying cardiac issues and may benefit from an echo and further evaluation. We'll keep on telemetry for now. Her Coumadin is on hold secondary to drug interactions of warfarin with a azithromycin, her INR is 4 We'll discontinue levofloxacin as it can prolong the QT interval as well Will give flu vaccine and Tdap 08/27/2017 Joo Ulrich M.D. (1) Atrial fibrillation with RVR - Continue to monitor cardiac telemetry - Anticoagulated on Coumadin - Flecainide 50mg started, pt without obvious side effects (2) Hypoxia - 2D Echo pending - chronic pulmonary fibrosis vs Pneumonia. - Levaquin d/c yesterday and steroids continued. Pt does feel "some" better today. - cbc,cmp in am (3) Elevated troponin - Resolved (4) Supratherapeutic INR - Pharmacy consulted today for management of INR as INR ben today to >6 (5) Essential (primary) hypertension - Stable 08/28/17 Arely BiPAP to help with ventilatory support. Will start Rocephin for pulmonary coverage. Lasix 40mg given to help decrease pulmonary edema - Conley place to monitor urine output. Decrease Solu-medrol to 62.5mg IV q 6 hours Hold losartan as creatinine with slight increase to 1.6. Continue DuoNeb breathing treatment routinely, adding Budesonide 0.5mg nebulized BID. Coumadin on hold as INR increased to 8.93. Monitor lab.
--- NOTE | 2017-08-28 09:48 | Pharmacy Consult ---
Pharmacy Consult-Warfarin - Laboratory Information 08/27/17 08/28/17 04:34 04:45 INR 6.91 H* 8.93 H* 89yo F admitted with hypoxia secondary to outpatient treatment failure for pneumonia. Also A. Fib. with RVR, hx of P.E. On chronic warfarin therapy. Presented with elevated INR. Phytonadione (Vit.K) 2mg po given this am at 0620 when 8.93 INR resulted out. Will repeat INR today at 1600 to confirm trending in right direction and determine if more Vit. K needed. Thank you
[2017-08-28] MEDS: GUAIFENESIN 400MG TABLET PO SCH ×2 (09:49→20:07)
[2017-08-28] MEDS: FLECAINIDE 50 MG TABLET PO SCH ×2 (09:49→20:06)
[2017-08-28] MEDS: AMLODIPINE 5 MG TABLET PO SCH (09:49)
[2017-08-28] MEDS: CEFTRIAXONE 1 G in NS 100 ML IV SCH (10:36)
[2017-08-28] MEDS: BUDESONIDE INH.SOLN 0.5mg/2ml NEB AEROSOL SCH ×2 (12:04→20:25)
[2017-08-28] MEDS: FUROSEMIDE 40 MG/4 ML INJECTION IVP SCH ×2 (13:29→20:07)
--- NOTE | 2017-08-28 14:50 | Cardiology Progress Note ---
<Maude Ortega - Last Filed: 08/28/17 14:47> Subjective Principal diagnosis: AFIB RVR Interval history: Marie is seen in follow up for atrial fibrillation with today. She is in her bed and currently on Bi-Pap, she awakens to voice and denies discomfort but states she is tired. Exam Vital signs: Temperature 96.1 F L 08/28/17 08:00 Pulse Rate 77 08/28/17 12:32 Respiratory Rate 28 H 08/28/17 12:32 Blood Pressure 130/65 08/28/17 08:00 Pulse Oximetry 94 08/28/17 13:26 - Constitutional mild distress, cooperative - Routine HEENT Exam Head: Present: normocephalic ENT: Present: mucous membranes dry - Routine Neck Exam Absent: JVD, carotid bruit - Routine Chest/Breast/Axilla Exam Chest wall: Absent: tenderness - Routine Respiratory Exam Present: dyspnea, decreased breath sounds, diminished air movement - Routine Cardiovascular Exam Present: RRR, no murmur, JVD - Routine Abdominal Exam Present: soft, normoactive bowel sounds - Routine Extremities Exam Present: edema - Routine Skin Exam Present: intact, dry, warm - Routine Neurological Exam Present: alert - Routine Psychiatric Exam Present: cooperative, anxious - Additional findings Additional findings: Abnormal Lab Results 08/27/17 08/28/17 08/28/17 14:05 04:45 04:45 WBC 23.3 H RBC 3.93 L Hgb 11.3 L Hct 35.3 L MCV 89.8 MCH 28.8 MCHC 32.0 RDW Std Deviation 48.3 Plt Count 247 MPV 11.2 Immature Gran % (Auto) Not performed Neut % (Auto) Not performed Lymph % (Auto) Not performed Green % (Auto) Not performed Eos % (Auto) Not performed Baso % (Auto) Not performed Neut # (Auto) Not performed Lymph # (Auto) Not performed Green # (Auto) Not performed Eos # (Auto) Not performed Baso # (Auto) Not performed Abs Immat Gran (auto) Not performed Neutrophils % (Manual) 91.0 H 91.0 H Band Neutrophils % 3.0 Lymphocytes % (Manual) 6.0 L 3.0 L Monocytes % (Manual) 3.0 1.0 Eosinophils % (Manual) 1.0 Basophils % (Manual) 1.0 Neutrophils # (Manual) 17.5 H 21.2 H Band Neutrophils # 0.7 Lymphocytes # (Manual) 1.2 0.7 L Monocytes # (Manual) 0.6 0.2 Eosinophils # (Manual) 0.2 Basophils # (Manual) 0.2 RBC Morph Comment Normal Normal INR 8.93 H* Turbidity Sodium Potassium Chloride Carbon Dioxide Anion Gap BUN Creatinine GFR Calculation BUN/Creatinine Ratio Glucose Calculated Osmolality Calcium Total Bilirubin Icterus Index AST ALT Alkaline Phosphatase C-Reactive Protein B-Natriuretic Peptide Total Protein Albumin Globulin Albumin/Globulin Ratio Specimen Hemolysis 08/28/17 08/28/17 08/28/17 04:45 13:26 13:35 WBC RBC Hgb Hct MCV MCH MCHC RDW Std Deviation Plt Count MPV Immature Gran % (Auto) Neut % (Auto) Lymph % (Auto) Green % (Auto) Eos % (Auto) Baso % (Auto) Neut # (Auto) Lymph # (Auto) Green # (Auto) Eos # (Auto) Baso # (Auto) Abs Immat Gran (auto) Neutrophils % (Manual) Band Neutrophils % Lymphocytes % (Manual) Monocytes % (Manual) Eosinophils % (Manual) Basophils % (Manual) Neutrophils # (Manual) Band Neutrophils # Lymphocytes # (Manual) Monocytes # (Manual) Eosinophils # (Manual) Basophils # (Manual) RBC Morph Comment INR 5.97 H* Turbidity < 20 Sodium 146 H Potassium 4.0 Chloride 114 H Carbon Dioxide 22 Anion Gap 10 BUN 32.0 H Creatinine 1.6 H D GFR Calculation 30 BUN/Creatinine Ratio 20 Glucose 127 H Calculated Osmolality 290 H Calcium 8.8 Total Bilirubin 0.50 Icterus Index < 2 AST 56 H ALT 48 Alkaline Phosphatase 143 H C-Reactive Protein 79.4 H B-Natriuretic Peptide 3240 H Total Protein 7.1 Albumin 3.2 L Globulin 3.9 H Albumin/Globulin Ratio 0.8 L Specimen Hemolysis < 15 Acetaminophen (Tylenol) 325 - 650 mg PO Q5H PRN PRN Reason: Discomfort Hydrocodone Bitart/Acetaminophen ([place] 5/325) 1 tab PO Q6H PRN PRN Reason: Pain Last Admin: 08/27/17 03:56 Dose: 1 tab Albuterol Sulfate (Proventil Neb (0.083%)) 2.5 mg AEROSOL Q2H PRN Albuterol/Ipratropium (Duoneb) 3 ml AEROSOL Q4H [facility]NE-MARIE Last Admin: 08/28/17 12:04 Dose: 3 ml Amlodipine Besylate (Norvasc) 5 mg PO DAILY [facility] Last Admin: 08/28/17 09:49 Dose: 5 mg Budesonide (Pulmicort Inhalation) 0.5 mg AEROSOL RTBID [facility] Last Admin: 08/28/17 12:04 Dose: 0.5 mg Cetirizine HCl (Zyrtec) 10 mg PO HS [facility] Last Admin: 08/27/17 21:48 Dose: 10 mg Docusate Sodium (Colace) 100 mg PO BID PRN Flecainide Acetate (Tambocor) 50 mg PO BID [facility] Last Admin: 08/28/17 09:49 Dose: 50 mg Furosemide (Lasix) 40 mg IVP Q12HR [facility] Last Admin: 08/28/17 13:29 Dose: 40 mg Guaifenesin (Mucinex) 400 mg PO BID [facility] Last Admin: 08/28/17 09:49 Dose: 400 mg Ceftriaxone Sodium 1 g/ Sodium (Chloride) 100 mls @ 200 mls/hr IV Q24H [facility] Last Infusion: 08/28/17 11:10 Dose: Infused Levothyroxine Sodium (Synthroid) 88 mcg PO ACB [facility] Last Admin: 08/28/17 05:44 Dose: 88 mcg Lorazepam (Ativan Inj) 0.5 mg IVP Q4H PRN Last Admin: 08/28/17 08:48 Dose: 0.5 mg Losartan Potassium (Cozaar) 50 mg PO DAILY [facility] Last Admin: 08/27/17 09:34 Dose: 50 mg Menthol (Ricola Sf) 1 lozenge MM PRN PRN PRN Reason: Cough Last Admin: 08/28/17 05:44 Dose: 1 lozenge Methylprednisolone Sodium Succinate (Solu-Medrol) 62.5 mg IVP Q6HR [facility] Ondansetron HCl (Zofran) 4 mg IVP Q6H PRN PRN Reason: Nausea &/or vomiting Sodium Chloride (Iv Flush) 10 - 80 ml IVF PRN PRN PRN Reason: Flushing Last Admin: 08/28/17 13:29 Dose: 20 ml Warfarin Sodium (Coumadin Protocol) 0 MC NOTE ANNE-MARIE - Urinary Catheter Management Urethral Cath placed during this visit: yes Insertion date: 08/28/17 Insertion time: 08:04 Assessment and Plan - Assessment and Plan (1) Atrial fibrillation with RVR Current visit: Yes Status: Acute Remains in SR - Remains on Flecainide - EKG now - Continue to monitor cardiac telemetry - EKG in am - Mag in am (2) Hypoxia Current visit: Yes Status: Acute (3) Elevated troponin Current visit: Yes Status: Acute (4) Supratherapeutic INR Current visit: Yes Status: Acute (5) Essential (primary) hypertension Current visit: Yes Status: Chronic (6) Personal history of pulmonary embolism Current visit: Yes Status: Chronic (7) Nonrheumatic mitral valve insufficiency Current visit: Yes Status: Chronic (8) Non-rheumatic tricuspid valve insufficiency Current visit: Yes Status: Chronic (9) Congestive heart failure (CHF) Current visit: Yes Status: Acute Uncertain type, Unknown EF, echo pending - Requires BI-Pap today, has JVD and edema - BNP now please - Diuresis with Lasix 40mg IV BID - Monitor renal and electrolytes - Hospital Course Summary Disclaimer: The visit summary below is not to be considered part of the above Progress Note. Hospital Course: Impression: Generalized weakness-suspect multifactorial. She does report some improvement in body cramping since increasing her thyroid Hypoxia- I believe her underlying issues may be more cardiac, question chronic pulmonary fibrosis patient has not seen a social media project manager in the past according to her. I do not believe she has pneumonia at this time Paroxysmal atrial fibrillation with rapid ventricular response Hypertension Squamous cell carcinoma skin cancer with metastases status post radiation therapy History of pulmonary embolus on warfarin Plan: We'll ask cardiology to see. I wonder the patient may have underlying cardiac issues and may benefit from an echo and further evaluation. We'll keep on telemetry for now. Her Coumadin is on hold secondary to drug interactions of warfarin with a azithromycin, her INR is 4 We'll discontinue levofloxacin as it can prolong the QT interval as well Will give flu vaccine and Tdap 08/27/2017 Joo Ulrich M.D. (1) Atrial fibrillation with RVR - Continue to monitor cardiac telemetry - Anticoagulated on Coumadin - Flecainide 50mg started, pt without obvious side effects (2) Hypoxia - 2D Echo pending - chronic pulmonary fibrosis vs Pneumonia. - Levaquin d/c yesterday and steroids continued. Pt does feel "some" better today. - cbc,cmp in am (3) Elevated troponin - Resolved (4) Supratherapeutic INR - Pharmacy consulted today for management of INR as INR ben today to >6 (5) Essential (primary) hypertension - Stable 08/28/17 Arely BiPAP to help with ventilatory support. Will start Rocephin for pulmonary coverage. Lasix 40mg given to help decrease pulmonary edema - Conley place to monitor urine output. Decrease Solu-medrol to 62.5mg IV q 6 hours Hold losartan as creatinine with slight increase to 1.6. Continue DuoNeb breathing treatment routinely, adding Budesonide 0.5mg nebulized BID. Coumadin on hold as INR increased to 8.93. Monitor lab. <He Garcia - Last Filed: 08/28/17 19:58> Exam Vital signs: Temperature 97.5 F 08/28/17 15:15 Pulse Rate 64 08/28/17 15:15 Respiratory Rate 22 08/28/17 15:51 Blood Pressure 116/64 08/28/17 15:15 Pulse Oximetry 89 L 08/28/17 18:01 - Urinary Catheter Management Urethral Cath placed during this visit: no Assessment and Plan - Assessment and Plan (1) Hypoxia Current visit: Yes Status: Acute (2) Supratherapeutic INR Current visit: Yes Status: Acute (3) Elevated troponin Current visit: Yes Status: Acute (4) Atrial fibrillation with RVR Current visit: Yes Status: Acute (5) Essential (primary) hypertension Current visit: Yes Status: Chronic (6) Personal history of pulmonary embolism Current visit: Yes Status: Chronic (7) Nonrheumatic mitral valve insufficiency Current visit: Yes Status: Chronic (8) Non-rheumatic tricuspid valve insufficiency Current visit: Yes Status: Chronic (9) Congestive heart failure (CHF) Current visit: Yes Status: Acute Hospital Course Summary Disclaimer: The visit summary below is not to be considered part of the above Progress Note.
--- NOTE | 2017-08-28 16:28 | Pharmacy Consult ---
Pharmacy Consult-Warfarin - Laboratory Information 08/27/17 08/28/17 08/28/17 04:34 04:45 13:26 INR 6.91 H* 8.93 H* 5.97 H* INR has decreased to 5.97. Will give additional dose of Phytonadione 1mg oral today yet. Recheck INR in am. Thank you.
--- NOTE | 2017-08-28 17:17 | XRay Report ---
EXAM: XR chest 1V LOCATION OF DICTATION: [facility] HISTORY: hypoxia COMPARISON: August 26, 2017. FINDINGS: The heart size is upper limits normal. There is moderate calcific atherosclerotic disease of the thoracic aorta. Interval increase in diffuse interstitial and alveolar opacities within the bilateral lungs likely superimposed on chronic interstitial changes. Findings may reflect atypical pneumonia/ARDS and follow-up is recommended. There are no visible pleural effusions. There is no pneumothorax. The osseous structures are stable. IMPRESSION: Interval increase in diffuse interstitial/alveolar opacities within the bilateral lungs likely superimposed on chronic interstitial changes. The findings may reflect worsening atypical pneumonia or ARDS/edema and follow-up is recommended. .
[2017-08-28] MEDS: CETIRIZINE 10 MG TABLET PO SCH (20:06)
[2017-08-29] MEDS: ALBUTEROL/IPRATROPIUM 2.5mg-0.5mg/3ml NEB AEROSOL SCH ×7 (00:55→23:15)
[2017-08-29] MEDS: METHYLPREDNISOLONE SOD SUCC 125mg/2ml INJECTION IVP SCH ×4 (02:06→20:51)
[2017-08-29] MEDS: SALINE FLUSH 10ml SYRINGE IVF PRN (02:06)
[2017-08-29] MEDS: BUDESONIDE INH.SOLN 0.5mg/2ml NEB AEROSOL SCH ×2 (07:47→19:38)
--- NOTE | 2017-08-29 08:08 | Pharmacy Consult ---
Pharmacy Consult-Warfarin - Laboratory Information 08/27/17 08/28/17 08/28/17 04:34 04:45 13:26 INR 6.91 H* 8.93 H* 5.97 H* 08/29/17 05:15 INR 1.85 H MW is a 89 yo female who was admitted for hypoxia secondary to failure of outpatient therapy of pneumonia. The patient is on anti-coagulation therapy with warfarin because of atrial fibrillation with RVR and history of PE, The patient on admission had an elevated INR of 6.91. Date INR Dose 08/27 6.91 ---- 08/28 8.98 Vitamin K 2 mg @0620 08/28 5.97 Vitamin K 1 mg @1330 10. 1,85 Warfarin 1.5 mg Today's INR was 1.85 mg. I ordered a dose of warfarin 1.5 mg @ 1200 today. The pharmacy will continue to monitor the INR's and give the appropriate dose of warfarin. Thanks for the Warfarin Dosing Protocol, Remington Shearer, Pharmacist.
[2017-08-29] MEDS: FLECAINIDE 50 MG TABLET PO SCH ×2 (08:10→20:50)
[2017-08-29] MEDS: AMLODIPINE 5 MG TABLET PO SCH (08:10)
[2017-08-29] MEDS: FUROSEMIDE 40 MG/4 ML INJECTION IVP SCH ×2 (08:10→20:51)
[2017-08-29] MEDS: LEVOTHYROXINE 88 MCG TABLET PO SCH (08:10)
[2017-08-29] MEDS: GUAIFENESIN 400MG TABLET PO SCH ×2 (08:10→20:50)
[2017-08-29] MEDS: CEFTRIAXONE 1 G in NS 100 ML IV SCH (10:28)
--- NOTE | 2017-08-29 10:30 | Progress Note ---
<Jaquelin Banres D - Last Filed: 08/29/17 12:08> - Date 08/29/17 Subjective: Patient was seen after request of the RN b/c of ongoing hypoxia. She is requiring BiPAP to maintain sats. Within 30-60 sec of being off BiPAP, her sats plummet into the 70s. Inspiratory pressure has been increased from 15 to 18. She complains of feeling sideways, like her whole bed is leaning. Her son is very concerned about nutrition - she hasn't eaten anything in 4-5 days. Objective Vital signs: Temperature 96.3 F L 08/29/17 07:37 Pulse Rate 73 08/29/17 07:37 Respiratory Rate 34 H 08/29/17 07:48 Blood Pressure 138/75 08/29/17 07:37 Pulse Oximetry 93 08/29/17 07:48 Height/Weight/BMI: Height 1.68 m Weight 90.3 kg Body Mass Index 30.7 - Constitutional Present: well nourished, well developed Comments: Full BiPAP mask in place - when removed and placed on 15L NRB, her oxygen sats drop into the 70s within 30-60 sec. - Routine HEENT Exam ENT: Present: mucous membranes dry - Routine Respiratory Exam Present: decreased breath sounds, diminished air movement Comments: coarse - Routine Cardiovascular Exam Present: RRR, S1, S2 - Routine Abdominal Exam Present: soft, normoactive bowel sounds, non distended, non tender - Routine Extremities Exam Present: edema (trace b/l) - Routine Skin Exam Present: intact, pallor, warm - Routine Neurological Exam Present: alert, oriented X3 - Routine Psychiatric Exam Present: cooperative Results - Labs CBC & Chem 7: 08/29/17 05:15 08/29/17 05:15 Microbiology Results: Microbiology 08/26/17 06:42 Sputum, Expectorated Gram Stain - Final 08/26/17 06:42 Sputum, Expectorated Sputum Culture - Final Normal Respiratory Yoselin Assessment and Plan (1) Pneumonia Current visit: Yes Status: Acute Patient on Zithromax as an outpatient, she failed this. Will start IV levaquin, mucinex and duonebs during her stay. She was not wheezing, will not order steroids at this time. repeat labs in the AM. 08/25/17 (2) Hypoxia Current visit: Yes Status: Acute 08/25/17 22:40 Patient admitted and started on supplemental oxygen. Likely due to failure of outpatient treatment for CAP. start aggressive pulmonary toilet tonight. Attempt to titrate oxygen off during stay. (3) Supratherapeutic INR Current visit: Yes Status: Acute 08/25/17 22:43 hold Coumadin for now. (4) Elevated troponin Current visit: Yes Status: Acute 08/25/17 22:42 Trend overnight. Cardiology to see in AM. Resuscitation Status: Do Not Resuscitate Assessment and Plan: Assessment Acute hypoxic respiratory failure requiring noninvasive ventilation Pulmonary edema - increasing from admission Afib with RVR Suspect pulmonary fibrosis; emphysema Possible pneumonia Leukocytosis COPD/Emphysema Stage III CKD HTN Anticoagulation with Coumadin - INR elevated Plan Unable to tolerate being off BiPAP. Check ABG. Consult Dr. Mari - discussed case with Vivian Sawant APRN. The patient is against intubation but her and son disagreed and want her to be intubated and mechanically ventilated. Continue Solu-Medrol, DuoNeb, Pulmicort. CXR personally reviewed. Continue diuresis per cardiology. She's had good UO. Echo pending. WBC decreased to 15. Continue Rocephin; consider expanding abx. Creatinine improved to 1.4. Continue to hold ARB. INR down to 1.85; start Lovenox 30 mg daily until her INR increases to >2. Regarding nutrition, would consider hyperalimentation though there is high concern for worsening her fluid balance. D/W Dr. Mcgee, RN, and family. Hospital Course Summary Disclaimer: The visit summary below is not to be considered part of the above Progress Note. Hospital Course: Impression: Generalized weakness-suspect multifactorial. 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 I do not believe she has pneumonia at this time Paroxysmal atrial fibrillation with rapid ventricular response Hypertension Squamous cell carcinoma skin cancer with metastases status post radiation therapy History of pulmonary embolus on warfarin Plan: We'll ask cardiology to see. I wonder the patient may have underlying cardiac issues and may benefit from an echo and further evaluation. We'll keep on telemetry for now. Her Coumadin is on hold secondary to drug interactions of warfarin with a azithromycin, her INR is 4 We'll discontinue levofloxacin as it can prolong the QT interval as well Will give flu vaccine and Tdap 08/27/2017 Joo Ulrich M.D. (1) Atrial fibrillation with RVR - Continue to monitor cardiac telemetry - Anticoagulated on Coumadin - Flecainide 50mg started, pt without obvious side effects (2) Hypoxia - 2D Echo pending - chronic pulmonary fibrosis vs Pneumonia. - Levaquin d/c yesterday and steroids continued. Pt does feel "some" better today. - cbc,cmp in am (3) Elevated troponin - Resolved (4) Supratherapeutic INR - Pharmacy consulted today for management of INR as INR ben today to >6 (5) Essential (primary) hypertension - Stable 08/28/17 Arely BiPAP to help with ventilatory support. Will start Rocephin for pulmonary coverage. Lasix 40mg given to help decrease pulmonary edema - Conley place to monitor urine output. Decrease Solu-medrol to 62.5mg IV q 6 hours Hold losartan as creatinine with slight increase to 1.6. Continue DuoNeb breathing treatment routinely, adding Budesonide 0.5mg nebulized BID. Coumadin on hold as INR increased to 8.93. Monitor lab. 08/29/17 Unable to tolerate being off BiPAP. Check ABG. Consult Dr. Mari - discussed case with Vivian Sawant APRN. The patient is against intubation but her and son disagreed and want her to be intubated and mechanically ventilated. Continue Solu-Medrol, DuoNeb, Pulmicort. CXR personally reviewed. Continue diuresis per cardiology. She's had good UO. Echo pending. WBC decreased to 15. Continue Rocephin; consider expanding abx. Creatinine improved to 1.4. Continue to hold ARB. INR down to 1.85; start Lovenox 30 mg daily until her INR increases to >2. Regarding nutrition, would consider hyperalimentation though there is high concern for worsening her fluid balance. <Bryce Mcgee - Last Filed: 08/29/17 13:59> - Date 08/29/17 Objective Vital signs: Temperature 96.3 F L 08/29/17 07:37 Pulse Rate 78 08/29/17 08:00 Respiratory Rate 35 H 10/24/17 12:25 Blood Pressure 138/75 08/29/17 07:37 Pulse Oximetry 94 08/29/17 12:25 Height/Weight/BMI: Height 1.68 m Weight 90.3 kg Body Mass Index 30.7 Results - Labs CBC & Chem 7: 08/29/17 05:15 08/29/17 05:15 Microbiology Results: Microbiology 08/26/17 06:42 Sputum, Expectorated Gram Stain - Final 08/26/17 06:42 Sputum, Expectorated Sputum Culture - Final Normal Respiratory Yoselin - ABG Interpretation ABG results: 08/29/17 11:10 ABG pH 7.420 ABG pCO2 45 ABG pO2 121 H ABG HCO3 29 H ABG Total CO2 30.6 H ABG O2 Saturation 99.0 H ABG Base Excess 4.1 H Assessment and Plan (1) Pneumonia Current visit: Yes Status: Acute (2) Hypoxia Current visit: Yes Status: Acute (3) Supratherapeutic INR Current visit: Yes Status: Acute (4) Elevated troponin Current visit: Yes Status: Acute DVT Prophylaxis: Lovenox, Coumadin Assessment and Plan: Assessment Acute hypoxic respiratory failure requiring noninvasive ventilation Pulmonary edema - increasing from admission Afib with RVR Suspect pulmonary fibrosis; emphysema Possible pneumonia Leukocytosis COPD/Emphysema Stage III CKD HTN Anticoagulation with Coumadin - INR elevated admission Have independently interviewed and examined pt. Chart reviewed. Case discussed with LEIA, Dr Schwartz, my SUPERVISOR [employer]OUN[employer], and family. Care plan developed with my supervision; agree with above. Oxygenation still problematic-needing high flow O2 to help maintain saturations. Tolerating BiPAP. Sats decrease quickly when off O2. Does not congestion to chest. Not hurting as she breaths. No nausea. Still feels very dizzy. Neck feel stiff from being in uncomfortable position in bed. Lungs: decreased CV: regular MSE: awake alert Gen: looks tired and weak Plan: Pulm consult initiated. Continue with Lasix to help decrease pulmonary edema; renal status stable with current dose. Continue BiPAP to help respiratory support. Lovenox x1 as INR less than 2. Recheck CXR tomorrow to assess pulmonary edema. Recheck BMP secondary to Lasix use. Monitor CBC secondary to leukocytosis. Time spent with patient care 25 minutes. - Time spent with patient Time with patient PN: 25 minutes Hospital Course Summary Disclaimer: The visit summary below is not to be considered part of the above Progress Note.
--- NOTE | 2017-08-29 10:33 | Echocardiogram ---
DATE OF PROCEDURE August 28, 2017 This is a two-dimensional echo with spectral Doppler, color-flow and M-mode. It was obtained in a patient with atrial fibrillation and hypoxia. Left atrium is dilated. Left ventricle end-diastolic dimension is normal. Left ventricle wall thickness is mildly increased. LV systolic function is normal with ejection fraction of 65%. Right atrium is dilated. Right ventricle is normal. Aortic root dimension is normal. Mitral valve is morphologically normal with mild mitral regurgitation. Aortic valve appears to be a trileaflet structure with no stenosis or insufficiency. Tricuspid valve shows mild tricuspid regurgitation with moderate pulmonary hypertension with estimated pulmonary artery systolic pressure of 51. Pulmonary valve shows mild pulmonary insufficiency. There is no pericardial effusion. IMPRESSION 1. Normal LV systolic function with ejection fraction of 65%. 2. Biatrial dilation. 3. Mild left ventricular hypertrophy. 4. Mild mitral regurgitation. 5. Mild tricuspid regurgitation with moderate pulmonary hypertension with estimated pulmonary artery systolic pressure of 51. 6. Mild pulmonary insufficiency. MTDD
[2017-08-29] MEDS: ENOXAPARIN 30 MG/0.3 ML INJECTION SQ SCH (11:45)
[2017-08-29] MEDS ORDERED: WARFARIN 3 MG TABLET PO SCH (12:00)
--- NOTE | 2017-08-29 13:20 | Pulmonology Consult Note ---
History of Present Illness Consult date: 08/29/17 Reason for consult: dyspnea, hypoxemia History of present illness: 89 year old lady with no pulmonary history other than PE on anticoagulation with coumadin. Never smoked, never had asthma. Is not on home O2. Son reports recent URTI with cough and dark sputum. Admission notes indicate: 89 yo F with PMH of PE currently on coumadin presented to the ED with reports of weakness and increased SOA. She was seen in the ED a few days ago and DX with PNA, sinusitis and started on Zithromax. She was offered admission, but declined at that time. She went home and did take her ABX as prescribed. But she continued to decline at home. She reports fevers and chills at home, but did not take her temp. She denies any nausea/vomiting or chest pain. She does not wear O2 at home but noted that her O2 sats are mid 70s on RA. She required 3 -4L NC to improve her sats. She was admitted for further care. Today she has had steady decline in her O2 sats and respiratory status, despite increasing amounts of O2. She was placed on continuous BIPAP and I was asked to see her regarding her breathing problems. Review of Systems ROS unobtainable: other Review of systems: bipap [facility] Patient Stated Medical History Glaucoma Yes Macular Degeneration Yes Other HEENT Yes: sinus infection Hypertension Yes Pneumonia Yes Pulmonary Embolism Yes Gastroesophageal Reflux Yes Disease Hx Urinary Tract Infection Yes Clotting Problems Yes Surgical History: Hysterectomy. Appendectomy. Tonsillectomy. Right neck lymph node dissection. Knee surgery - Social History Smoking status: Never smoker Current residence: Apartment/Private Home Medications Home Medications Medication Instructions Recorded Confirmed Type Losartan Potassium [Cozaar] 50 mg PO DAILY #0 08/11/11 08/25/17 History Warfarin Sodium [Coumadin] 3 mg PO SUMOWEFR #0 04/25/15 08/25/17 History Amlodipine [Norvasc] 5 mg PO DAILY 08/22/17 08/25/17 History Aspirin [ASA] 325 mg PO PRN PRN 08/22/17 08/25/17 History Cholecalciferol (Vitamin D3) 10,000 unit PO MOFR 08/22/17 08/25/17 History [Maximum D3] Levothyroxine Tab [Synthroid] 88 mcg PO ACB 08/22/17 08/25/17 History Warfarin [Coumadin] 2 mg PO TUTHSA 08/22/17 08/25/17 History guaiFENesin [Mucinex] 600 mg PO Q12H PRN 08/22/17 08/25/17 History Allergies Allergy/AdvReac Type Severity Reaction Status Date / Time gabapentin AdvReac Severe Hallucinati Verified 08/26/17 10:54 ng fluorouracil AdvReac Unknown Verified 08/25/17 17:54 sertalege AdvReac Mild Hallucinati Uncoded 08/22/17 12:22 ng Exam Vital signs: Temperature 96.3 F L 08/29/17 07:37 Pulse Rate 78 08/29/17 08:00 Respiratory Rate 35 H 08/29/17 12:25 Blood Pressure 138/75 08/29/17 07:37 Pulse Oximetry 94 08/29/17 12:25 - Constitutional moderate distress - Routine HEENT Exam Head: Present: normocephalic, atraumatic Eye: Present: EOMI ENT: Present: mucous membranes moist - Routine Neck Exam Present: supple - Routine Respiratory Exam Present: accessory muscle use, crackles - Routine Cardiovascular Exam Present: RRR - Routine Abdominal Exam Present: soft - Routine Extremities Exam Absent: cyanosis, clubbing - Routine Neurological Exam Absent: sensory deficit Results - Laboratory Findings CBC and BMP: 08/29/17 05:15 08/29/17 05:15 ABG ABG pH 7.420 (7.350-7.450) 08/29/17 11:10 ABG pCO2 45 MMHG (34-45) 08/29/17 11:10 ABG pO2 121 MMHG (80-100) H 08/29/17 11:10 ABG O2 Saturation 99.0 % (95.0-98.0) H 08/29/17 11:10 PT/INR, D-dimer INR 1.85 (0.99-1.21) H 08/29/17 05:15 Abnormal lab findings: Abnormal Labs 08/26/17 08/26/17 08/26/17 00:43 01:11 01:11 WBC RBC 3.99 L Hgb 11.6 L Hct 35.6 L Lymph % (Auto) 15.8 L Major % (Auto) 15.8 H Major # (Auto) 1.6 H Neutrophils % (Manual) Lymphocytes % (Manual) Neutrophils # (Manual) Lymphocytes # (Manual) INR ABG pO2 ABG HCO3 ABG Total CO2 ABG O2 Saturation ABG Base Excess Sodium Chloride 110 H Carbon Dioxide BUN 19.0 H Creatinine BUN/Creatinine Ratio Glucose Calculated Osmolality AST Alkaline Phosphatase C-Reactive Protein B-Natriuretic Peptide Albumin Globulin Albumin/Globulin Ratio TSH Urine Protein 1+ A Urine Ketones Trace A Urine Occult Blood 2+ A Urine RBC 5-10 H 08/26/17 08/27/17 08/27/17 13:08 04:34 04:34 WBC 13.8 H RBC 3.55 L Hgb 10.1 L D Hct 31.7 L Lymph % (Auto) Major % (Auto) Major # (Auto) Neutrophils % (Manual) 97.0 H Lymphocytes % (Manual) 3.0 L Neutrophils # (Manual) 13.4 H Lymphocytes # (Manual) 0.4 L INR 6.91 H* ABG pO2 ABG HCO3 ABG Total CO2 ABG O2 Saturation ABG Base Excess Sodium Chloride Carbon Dioxide BUN Creatinine BUN/Creatinine Ratio Glucose Calculated Osmolality AST Alkaline Phosphatase C-Reactive Protein B-Natriuretic Peptide Albumin Globulin Albumin/Globulin Ratio TSH 0.06 L Urine Protein Urine Ketones Urine Occult Blood Urine RBC 08/27/17 08/27/17 08/27/17 04:34 14:05 14:05 WBC 19.2 H RBC 3.61 L Hgb 10.5 L Hct 32.4 L Lymph % (Auto) Major % (Auto) Major # (Auto) Neutrophils % (Manual) 91.0 H Lymphocytes % (Manual) 6.0 L Neutrophils # (Manual) 17.5 H Lymphocytes # (Manual) INR ABG pO2 ABG HCO3 ABG Total CO2 ABG O2 Saturation ABG Base Excess Sodium 146 H Chloride 116 H 114 H Carbon Dioxide 20 L 20 L BUN 22.0 H 24.0 H Creatinine 1.4 H D BUN/Creatinine Ratio Glucose 139 H 146 H Calculated Osmolality 288 H AST 37 H 45 H Alkaline Phosphatase C-Reactive Protein B-Natriuretic Peptide Albumin 2.8 L 3.0 L Globulin 3.7 H Albumin/Globulin Ratio 0.8 L 0.8 L TSH Urine Protein Urine Ketones Urine Occult Blood Urine RBC 08/28/17 08/28/17 08/28/17 04:45 04:45 04:45 WBC 23.3 H RBC 3.93 L Hgb 11.3 L Hct 35.3 L Lymph % (Auto) Major % (Auto) Major # (Auto) Neutrophils % (Manual) 91.0 H Lymphocytes % (Manual) 3.0 L Neutrophils # (Manual) 21.2 H Lymphocytes # (Manual) 0.7 L INR 8.93 H* ABG pO2 ABG HCO3 ABG Total CO2 ABG O2 Saturation ABG Base Excess Sodium 146 H Chloride 114 H Carbon Dioxide BUN 32.0 H Creatinine 1.6 H D BUN/Creatinine Ratio Glucose 127 H Calculated Osmolality 290 H AST 56 H Alkaline Phosphatase 143 H C-Reactive Protein 79.4 H B-Natriuretic Peptide Albumin 3.2 L Globulin 3.9 H Albumin/Globulin Ratio 0.8 L TSH Urine Protein Urine Ketones Urine Occult Blood Urine RBC 08/28/17 08/28/17 08/29/17 13:26 13:35 05:15 WBC RBC Hgb Hct Lymph % (Auto) Major % (Auto) Major # (Auto) Neutrophils % (Manual) Lymphocytes % (Manual) Neutrophils # (Manual) Lymphocytes # (Manual) INR 5.97 H* 1.85 H ABG pO2 ABG HCO3 ABG Total CO2 ABG O2 Saturation ABG Base Excess Sodium Chloride Carbon Dioxide BUN Creatinine BUN/Creatinine Ratio Glucose Calculated Osmolality AST Alkaline Phosphatase C-Reactive Protein B-Natriuretic Peptide 3240 H Albumin Globulin Albumin/Globulin Ratio TSH Urine Protein Urine Ketones Urine Occult Blood Urine RBC 08/29/17 08/29/17 08/29/17 05:15 05:15 11:10 WBC 15.0 H RBC 3.61 L Hgb 10.3 L Hct 32.3 L Lymph % (Auto) Major % (Auto) Major # (Auto) Neutrophils % (Manual) 92.0 H Lymphocytes % (Manual) 5.0 L Neutrophils # (Manual) 13.8 H Lymphocytes # (Manual) 0.8 L INR ABG pO2 121 H ABG HCO3 29 H ABG Total CO2 30.6 H ABG O2 Saturation 99.0 H ABG Base Excess 4.1 H Sodium 147 H Chloride 113 H Carbon Dioxide BUN 39.0 H Creatinine 1.4 H D BUN/Creatinine Ratio 28 H Glucose 124 H Calculated Osmolality 292 H AST 44 H Alkaline Phosphatase 149 H C-Reactive Protein B-Natriuretic Peptide Albumin 3.0 L Globulin Albumin/Globulin Ratio 0.8 L TSH Urine Protein Urine Ketones Urine Occult Blood Urine RBC - Diagnostic Findings Chest x-ray: report reviewed, image reviewed Assessment and Plan - Assessment and Plan Acute hypoxemic respiratory failure Pulmonary edema Recent URTI PE on full anticoagulation A fib with RVR PLAN: Recommend diuretic therapy. CT without contrast would be helpful to rule out ILD once we have tried diuretic therapy. Leukocytosis probably due to corticosteroids. continue BIPAP as needed to keep sats >90%. Does not have hypercapnia Repeat CXR and follow
--- NOTE | 2017-08-29 16:07 | Cardiology Progress Note ---
<Maude Ortega - Last Filed: 08/31/17 10:50> Subjective Principal diagnosis: AFIB RVR Interval history: Marie is seen in follow up for atrial fibrillation. She is in her bed currently on Bi-Pap, family at the bed side. She communicates that her mouth is dry and she needs a drink of water. She denies chest pain or pressure. Exam Vital signs: Temperature 97.3 F 08/29/17 15:23 Pulse Rate 74 08/29/17 15:23 Respiratory Rate 22 08/29/17 15:46 Blood Pressure 120/67 08/29/17 15:23 Pulse Oximetry 97 08/29/17 15:46 - Constitutional mild distress, cooperative - Routine HEENT Exam Head: Present: normocephalic ENT: Present: mucous membranes dry - Routine Neck Exam Absent: carotid bruit - Routine Chest/Breast/Axilla Exam Chest wall: Absent: tenderness - Routine Respiratory Exam Present: dyspnea, decreased breath sounds (coarse), diminished air movement. Absent: CTA bilaterally - Routine Cardiovascular Exam Present: RRR, no murmur - Routine Abdominal Exam Present: soft, normoactive bowel sounds - Routine Skin Exam Present: intact, dry, warm - Routine Neurological Exam Present: alert - Additional findings Additional findings: Abnormal Lab Results 08/29/17 08/29/17 08/29/17 05:15 05:15 05:15 WBC 15.0 H RBC 3.61 L Hgb 10.3 L Hct 32.3 L MCV 89.5 MCH 28.5 MCHC 31.9 RDW Std Deviation 48.5 Plt Count 160 D MPV 11.3 Immature Gran % (Auto) Not performed Neut % (Auto) Not performed Lymph % (Auto) Not performed Dunn % (Auto) Not performed Eos % (Auto) Not performed Baso % (Auto) Not performed Neut # (Auto) Not performed Lymph # (Auto) Not performed Dunn # (Auto) Not performed Eos # (Auto) Not performed Baso # (Auto) Not performed Abs Immat Gran (auto) Not performed Neutrophils % (Manual) 92.0 H Band Neutrophils % 2.0 Lymphocytes % (Manual) 5.0 L Monocytes % (Manual) 1.0 Neutrophils # (Manual) 13.8 H Band Neutrophils # 0.3 Lymphocytes # (Manual) 0.8 L Monocytes # (Manual) 0.2 RBC Morph Comment Normal INR 1.85 H ABG pH ABG pCO2 ABG pO2 ABG HCO3 ABG Total CO2 ABG O2 Saturation ABG Base Excess O2 Delivery Method FiO2 % Turbidity < 20 Sodium 147 H Potassium 3.9 Chloride 113 H Carbon Dioxide 26 Anion Gap 8 BUN 39.0 H Creatinine 1.4 H D GFR Calculation 35 BUN/Creatinine Ratio 28 H Glucose 124 H Calculated Osmolality 292 H Calcium 8.5 Magnesium 2.0 Total Bilirubin 0.90 Icterus Index < 2 AST 44 H ALT 47 Alkaline Phosphatase 149 H Total Protein 6.6 Albumin 3.0 L Globulin 3.6 Albumin/Globulin Ratio 0.8 L Specimen Hemolysis 22 08/29/17 11:10 WBC RBC Hgb Hct MCV MCH MCHC RDW Std Deviation Plt Count MPV Immature Gran % (Auto) Neut % (Auto) Lymph % (Auto) Dunn % (Auto) Eos % (Auto) Baso % (Auto) Neut # (Auto) Lymph # (Auto) Dunn # (Auto) Eos # (Auto) Baso # (Auto) Abs Immat Gran (auto) Neutrophils % (Manual) Band Neutrophils % Lymphocytes % (Manual) Monocytes % (Manual) Neutrophils # (Manual) Band Neutrophils # Lymphocytes # (Manual) Monocytes # (Manual) RBC Morph Comment INR ABG pH 7.420 ABG pCO2 45 ABG pO2 121 H ABG HCO3 29 H ABG Total CO2 30.6 H ABG O2 Saturation 99.0 H ABG Base Excess 4.1 H O2 Delivery Method Bpap, % FiO2 % 70 Turbidity Sodium Potassium Chloride Carbon Dioxide Anion Gap BUN Creatinine GFR Calculation BUN/Creatinine Ratio Glucose Calculated Osmolality Calcium Magnesium Total Bilirubin Icterus Index AST ALT Alkaline Phosphatase Total Protein Albumin Globulin Albumin/Globulin Ratio Specimen Hemolysis Acetaminophen (Tylenol) 325 - 650 mg PO Q5H PRN PRN Reason: Discomfort Hydrocodone Bitart/Acetaminophen ([place] 5/325) 1 tab PO Q6H PRN PRN Reason: Pain Last Admin: 08/27/17 03:56 Dose: 1 tab Albuterol Sulfate (Proventil Neb (0.083%)) 2.5 mg AEROSOL Q2H PRN Albuterol/Ipratropium (Duoneb) 3 ml AEROSOL Q4H ANNE-MARIE Last Admin: 08/29/17 15:46 Dose: 3 ml Amlodipine Besylate (Norvasc) 5 mg PO DAILY ANNE-MARIE Last Admin: 08/29/17 08:10 Dose: 5 mg Budesonide (Pulmicort Inhalation) 0.5 mg AEROSOL RTBID [facility] Last Admin: 08/29/17 07:47 Dose: 0.5 mg Cetirizine HCl (Zyrtec) 10 mg PO HS [facility] Last Admin: 08/28/17 20:06 Dose: 10 mg Docusate Sodium (Colace) 100 mg PO BID PRN Enoxaparin Sodium (Lovenox) 30 mg SQ DAILY [facility] Last Admin: 08/29/17 11:45 Dose: 30 mg Flecainide Acetate (Tambocor) 50 mg PO BID [facility] Last Admin: 08/29/17 08:10 Dose: 50 mg Furosemide (Lasix) 40 mg IVP Q12HR [facility] Last Admin: 08/29/17 08:10 Dose: 40 mg Guaifenesin (Mucinex) 400 mg PO BID [facility] Last Admin: 08/29/17 08:10 Dose: 400 mg Ceftriaxone Sodium 1 g/ Sodium (Chloride) 100 mls @ 200 mls/hr IV Q24H [facility] Last Infusion: 08/29/17 10:58 Dose: Infused Levothyroxine Sodium (Synthroid) 88 mcg PO ACB [facility] Last Admin: 08/29/17 08:10 Dose: 88 mcg Lorazepam (Ativan Inj) 0.5 mg IVP Q4H PRN Last Admin: 08/29/17 02:06 Dose: 0.5 mg Losartan Potassium (Cozaar) 50 mg PO DAILY [facility] Last Admin: 08/27/17 09:34 Dose: 50 mg Menthol (Ricola Sf) 1 lozenge MM PRN PRN PRN Reason: Cough Last Admin: 08/28/17 15:31 Dose: 1 lozenge Methylprednisolone Sodium Succinate (Solu-Medrol) 62.5 mg IVP Q6HR [facility] Last Admin: 08/29/17 14:17 Dose: 62.5 mg Ondansetron HCl (Zofran) 4 mg IVP Q6H PRN PRN Reason: Nausea &/or vomiting Sodium Chloride (Iv Flush) 10 - 80 ml IVF PRN PRN PRN Reason: Flushing Last Admin: 08/29/17 02:06 Dose: 20 ml Trolamine Salicylate (Aspercreme) 1 applic TOP QID [facility] Warfarin Sodium (Coumadin Protocol) 0 MC NOTE ANNE-MARIE Warfarin Sodium (Coumadin) 1.5 mg PO NOON ANNE-MARIE Stop: 08/29/17 23:59 Last Admin: 08/29/17 11:45 Dose: 1.5 mg - Urinary Catheter Management Urethral Cath placed during this visit: yes Insertion date: 08/28/17 Insertion time: 08:04 Assessment and Plan - Assessment and Plan (1) Atrial fibrillation with RVR Current visit: Yes Status: Acute Continue Flecainide, EKG in am - Monitor QT and Mag - anticoagulated on Coumadin (2) Hypoxia Current visit: Yes Status: Acute (3) Elevated troponin Current visit: Yes Status: Acute (4) Supratherapeutic INR Current visit: Yes Status: Acute (5) Essential (primary) hypertension Current visit: Yes Status: Chronic (6) Personal history of pulmonary embolism Current visit: Yes Status: Chronic (7) Nonrheumatic mitral valve insufficiency Current visit: Yes Status: Chronic (8) Non-rheumatic tricuspid valve insufficiency Current visit: Yes Status: Chronic (9) Congestive heart failure (CHF) Current visit: Yes Status: Acute Continue Diuresis with Lasix - Monitor renal and electrolytes - O2 demands are improving. Hospital Course Summary Disclaimer: The visit summary below is not to be considered part of the above Progress Note. Hospital Course: Impression: Generalized weakness-suspect multifactorial. She does report some improvement in body cramping since increasing her thyroid Hypoxia- I believe her underlying issues may be more cardiac, question chronic pulmonary fibrosis patient has not seen a tank cleaner in the past according to her. I do not believe she has pneumonia at this time Paroxysmal atrial fibrillation with rapid ventricular response Hypertension Squamous cell carcinoma skin cancer with metastases status post radiation therapy History of pulmonary embolus on warfarin Plan: We'll ask cardiology to see. I wonder the patient may have underlying cardiac issues and may benefit from an echo and further evaluation. We'll keep on telemetry for now. Her Coumadin is on hold secondary to drug interactions of warfarin with a azithromycin, her INR is 4 We'll discontinue levofloxacin as it can prolong the QT interval as well Will give flu vaccine and Tdap 08/27/2017 Joo Ulrich M.D. (1) Atrial fibrillation with RVR - Continue to monitor cardiac telemetry - Anticoagulated on Coumadin - Flecainide 50mg started, pt without obvious side effects (2) Hypoxia - 2D Echo pending - chronic pulmonary fibrosis vs Pneumonia. - Levaquin d/c yesterday and steroids continued. Pt does feel "some" better today. - cbc,cmp in am (3) Elevated troponin - Resolved (4) Supratherapeutic INR - Pharmacy consulted today for management of INR as INR ben today to >6 (5) Essential (primary) hypertension - Stable 08/28/17 Arely BiPAP to help with ventilatory support. Will start Rocephin for pulmonary coverage. Lasix 40mg given to help decrease pulmonary edema - [place] place to monitor urine output. Decrease Solu-medrol to 62.5mg IV q 6 hours Hold losartan as creatinine with slight increase to 1.6. Continue DuoNeb breathing treatment routinely, adding Budesonide 0.5mg nebulized BID. Coumadin on hold as INR increased to 8.93. Monitor lab. 08/29/17 Unable to tolerate being off BiPAP. Check ABG. Consult Dr. Mari - discussed case with Vivian Sawant APRN. The patient is against intubation but her and son disagreed and want her to be intubated and mechanically ventilated. Continue Solu-Medrol, DuoNeb, Pulmicort. CXR personally reviewed. Continue diuresis per cardiology. She's had good UO. Echo pending. WBC decreased to 15. Continue Rocephin; consider expanding abx. Creatinine improved to 1.4. Continue to hold ARB. INR down to 1.85; start Lovenox 30 mg daily until her INR increases to >2. Regarding nutrition, would consider hyperalimentation though there is high concern for worsening her fluid balance. <Tristen Schwartz - Last Filed: 09/01/17 08:04> Exam Vital signs: Temperature 96.2 F L 09/01/17 07:42 Pulse Rate 76 09/01/17 07:42 Respiratory Rate 22 09/01/17 07:42 Blood Pressure 140/74 H 09/01/17 07:42 Pulse Oximetry 95 09/01/17 07:50 - Urinary Catheter Management Urethral Cath placed during this visit: no Assessment and Plan - Assessment and Plan (1) Hypoxia Current visit: Yes Status: Acute (2) Supratherapeutic INR Current visit: Yes Status: Acute (3) Elevated troponin Current visit: Yes Status: Acute (4) Atrial fibrillation with RVR Current visit: Yes Status: Acute (5) Essential (primary) hypertension Current visit: Yes Status: Chronic (6) Personal history of pulmonary embolism Current visit: Yes Status: Chronic (7) Nonrheumatic mitral valve insufficiency Current visit: Yes Status: Chronic (8) Non-rheumatic tricuspid valve insufficiency Current visit: Yes Status: Chronic (9) Congestive heart failure (CHF) Current visit: Yes Status: Acute - Attestation Attestation Narrative: 09/01/17 08:04 Recommendation After examining the patient I agree with the above assessment. I am involved in the formulation of the patient's plan of care. Hospital Course Summary Disclaimer: The visit summary below is not to be considered part of the above Progress Note.
[2017-08-29] MEDS: CETIRIZINE 10 MG TABLET PO SCH (20:50)
[2017-08-30] MEDS: SALINE FLUSH 10ml SYRINGE IVF PRN ×2 (00:54→23:14)
[2017-08-30] MEDS: ALBUTEROL/IPRATROPIUM 2.5mg-0.5mg/3ml NEB AEROSOL SCH ×6 (01:20→20:52)
[2017-08-30] MEDS: METHYLPREDNISOLONE SOD SUCC 125mg/2ml INJECTION IVP SCH ×3 (03:27→20:28)
[2017-08-30] MEDS: LEVOTHYROXINE 88 MCG TABLET PO SCH (06:06)
[2017-08-30] MEDS: FUROSEMIDE 40 MG/4 ML INJECTION IVP SCH (08:19)
[2017-08-30] MEDS: GUAIFENESIN 400MG TABLET PO SCH ×2 (08:19→20:25)
[2017-08-30] MEDS: ENOXAPARIN 30 MG/0.3 ML INJECTION SQ SCH (08:20)
[2017-08-30] MEDS: AMLODIPINE 5 MG TABLET PO SCH (08:20)
[2017-08-30] MEDS: FLECAINIDE 50 MG TABLET PO SCH ×2 (08:20→20:25)
--- NOTE | 2017-08-30 08:38 | Pharmacy Consult ---
Pharmacy Consult-Warfarin - Laboratory Information 08/27/17 08/28/17 08/28/17 04:34 04:45 13:26 INR 6.91 H* 8.93 H* 5.97 H* 08/29/17 08/30/17 05:15 04:08 INR 1.85 H 1.48 H - Consult Information INR is continuing to decline post vitamin K. Will balance warfarin dose today of 3mg p.o. to bring INR back to within therapeutic. Enoxaparin may be recommended to bridge as INR is sub-therapeutic. Thanks
[2017-08-30] MEDS: CEFTRIAXONE 1 G in NS 100 ML IV SCH (09:04)
[2017-08-30] MEDS: BUDESONIDE INH.SOLN 0.5mg/2ml NEB AEROSOL SCH ×2 (09:17→20:52)
--- NOTE | 2017-08-30 10:38 | Pulmonology Progress Note ---
Subjective Principal diagnosis: AFIB RVR Interval history: Pt is currently resting in bed, states she used the bipap all noc. Is currently on 15L HFNC, seems tired but answers questions appropriately. Exam Vital signs: Temperature 97.6 F 08/30/17 08:00 Pulse Rate 120 H 08/30/17 09:46 Respiratory Rate 18 08/30/17 09:46 Blood Pressure 128/67 08/30/17 09:46 Pulse Oximetry 98 08/30/17 10:34 - Constitutional no acute distress, obese - Routine HEENT Exam Head: Present: normocephalic, atraumatic Eye: Present: PERRL - Routine Neck Exam Present: supple, full ROM - Routine Respiratory Exam Present: crackles - Routine Cardiovascular Exam Present: RRR, no murmur - Routine Abdominal Exam Present: soft Comments: hypoactive - Routine Extremities Exam Present: edema, non tender, full ROM - Routine Skin Exam Present: intact, dry - Routine Neurological Exam Present: alert, oriented X3, CN II-XII intact - Routine Psychiatric Exam Present: normal affect, normal thought process, cooperative - Urinary Catheter Management Urethral Cath placed during this visit: yes Insertion date: 08/28/17 Insertion time: 08:04 Progress Note-A&P - Time Spent With Patient Total time spent is greater than 50% in coordination of care (as documented) at patient's floor/unit and/or counseling patient: less than 15 minutes (1) Acute respiratory failure with hypoxia Status: Acute Current Visit: Yes (2) Pulmonary edema Status: Acute Current Visit: Yes (3) Atrial fibrillation with RVR Status: Acute Current Visit: Yes (4) Personal history of pulmonary embolism Status: Chronic Current Visit: Yes - Assessment and Plan Pt currently on HFNC at 15L per NC and tolerating, sats 98%, can wean to keep sats 90-95%. Awaiting CXR this am, still on diuresis with lasix 40mg q12hr, I/O -3L/24hr but ? accuracy, Cr 1.3, BUN 45, follow closely as Na 151. Not taking much po, likely getting vascularly dry. On coumadin now for PE, INR 1.48 on lovenox, INR was elevated on admission. Recent URTI on Rocephin, a/a q4hr, pulmicort BID and solumedrol 60mg q6hr. Follow closely, await echo per cardiology.
[2017-08-30] MEDS ORDERED: acetaZOLAMIDE 250 MG TABLET PO ONE ×2 (11:35→17:30)
--- NOTE | 2017-08-30 11:35 | XRay Report ---
EXAM: XR chest 1V 1039 hours COMPARISON: 08/28/2017. 08/26/2017. 08/22/2017. HISTORY: f/u pulmonary edema . FINDINGS: The heart is enlarged. Prominent and indistinct. However this has improved compared to the prior exam. Increased interstitial markings at the mid to lower lungs are again noted but is improved. However this persists, particularly at the left mid and lower lung. There is no evidence for pleural effusion. There is no evidence for a pneumothorax. No osseous abnormalities are identified. IMPRESSION: 1. Cardiomegaly. 2. Interval improvement in pulmonary vascular congestive changes and interstitial edema pattern. [place] [facility] [place]
[2017-08-30] MEDS ORDERED: WARFARIN 3 MG TABLET PO SCH (12:00)
[2017-08-30 12:50] VITALS: BMI 30.4
--- NOTE | 2017-08-30 13:45 | Progress Note ---
- Date 08/30/17 Subjective: F/U: Acute hypoxic respiratory failure Resting in bed this afternoon. Feels weak and tired. Breathing better-less SOA and congested. Notes cough-infrequent and nonproductive. No pain with breathing. No chest pressure or palpitations. Appetite decreased, but starting to feel slightly more hungry. Taking small amounts of food/liquids in. Rare episodes of nausea. No ab pain. Neck still feels sore and tense-Aspercreme help some. and daughter at bedside. Objective Vital signs: Temperature 97.6 F 08/30/17 08:00 Pulse Rate 120 H 08/30/17 09:46 Respiratory Rate 18 08/30/17 09:46 Blood Pressure 128/67 08/30/17 09:46 Pulse Oximetry 98 08/30/17 10:34 Height/Weight/BMI: Height 1.68 m Weight 85.729 kg Body Mass Index 30.4 - Constitutional Present: well nourished, well developed, cooperative, other (Alert, but appears very tired and weak. ) - Routine HEENT Exam Head: Present: normocephalic, atraumatic Eye: Present: EOMI, PERRL ENT: Present: mucous membranes dry - Routine Respiratory Exam Present: decreased breath sounds, distant breath sounds, diminished air movement. Absent: respiratory distress, rhonchi, wheezes, crackles - Routine Cardiovascular Exam Present: no murmur, irregular rhythm, irregularly irregular - Routine Abdominal Exam Present: soft, non distended, non tender. Absent: normoactive bowel sounds ( Decreased ) - Routine Extremities Exam Present: edema (Trace BLE ), pulses intact. Absent: cyanosis, clubbing - Routine Musculoskeletal Exam Musculoskeletal: Present: no clubbing or cyanosis - Routine Skin Exam Present: dry, warm - Routine Neurological Exam Present: alert (Thoughts linear, communicates well. ), oriented X3, vision grossly intact, hearing grossly intact. Absent: motor deficit, altered mental status - Routine Psychiatric Exam Present: normal affect, normal thought process, cooperative. Absent: anxious, agitated Results - Labs CBC & Chem 7: 08/30/17 04:08 08/30/17 04:08 Microbiology Results: Microbiology 08/26/17 06:42 Sputum, Expectorated Gram Stain - Final 08/26/17 06:42 Sputum, Expectorated Sputum Culture - Final Normal Respiratory Yoselin - ABG Interpretation ABG results: 08/29/17 11:10 ABG pH 7.420 ABG pCO2 45 ABG pO2 121 H ABG HCO3 29 H ABG Total CO2 30.6 H ABG O2 Saturation 99.0 H ABG Base Excess 4.1 H Assessment and Plan (1) Pneumonia Current visit: Yes Status: Acute (2) Hypoxia Current visit: Yes Status: Acute (3) Supratherapeutic INR Current visit: Yes Status: Acute (4) Elevated troponin Current visit: Yes Status: Acute Assessment and Plan: Assessment Acute hypoxic respiratory failure requiring noninvasive ventilation Pulmonary edema - increasing from admission Afib with RVR Suspect pulmonary fibrosis; emphysema Possible pneumonia Leukocytosis COPD/Emphysema Stage III CKD HTN Anticoagulation with Coumadin - INR elevated admission Hypernatremia (Not POA) Hypokalemia (Not POA) Plan CXR showing decrease of pulmonary edema. 6L urine output over the past 2 days. Sodium increased to 151 secondary to diuresis. Creatinine stable at 1.3 ( losartan on hold). Will stop IV Lasix due to concern for overdiuresis. Diamox 500mg x2 today. Decrease Solu-Medrol to 62.5mg BID. Wean O2 as needed. Continue Rocephin form pulmonary coverage. Continue Lovenox until INR therapeutic. Encourage oral intake. Will need PT/OT to help increase functional status once respiratory status improves. Possible PT/OT tomorrow or the next day. Nasal saline to help decrease risk for nasal dryness. Recheck BMP and Mg in am due to hypernatremia and hypokalemia. Check CBC in am due to leukocytosis. CMP ordered on 09/01/17 secondary to slight elevation of LFT. CXR in am to monitor pulmonary edema. Case discussed with LEIA, Dr Bejarano, and Vivian with Dr Mari as well as with family. Time spent with pt care 35 minutes. DVT Prophylaxis: Lovenox, Coumadin Resuscitation Status: Do Not Resuscitate - Time spent with patient Time with patient PN: 35 minutes Hospital Course Summary Disclaimer: The visit summary below is not to be considered part of the above Progress Note. Hospital Course: Impression: Generalized weakness-suspect multifactorial. She does report some improvement in body cramping since increasing her thyroid Hypoxia- I believe her underlying issues may be more cardiac, question chronic pulmonary fibrosis patient has not seen a neurosurgery spine physician in the past according to her. I do not believe she has pneumonia at this time Paroxysmal atrial fibrillation with rapid ventricular response Hypertension Squamous cell carcinoma skin cancer with metastases status post radiation therapy History of pulmonary embolus on warfarin Plan: We'll ask cardiology to see. I wonder the patient may have underlying cardiac issues and may benefit from an echo and further evaluation. We'll keep on telemetry for now. Her Coumadin is on hold secondary to drug interactions of warfarin with a azithromycin, her INR is 4 We'll discontinue levofloxacin as it can prolong the QT interval as well Will give flu vaccine and Tdap 08/27/2017 Joo Ulrich M.D. (1) Atrial fibrillation with RVR - Continue to monitor cardiac telemetry - Anticoagulated on Coumadin - Flecainide 50mg started, pt without obvious side effects (2) Hypoxia - 2D Echo pending - chronic pulmonary fibrosis vs Pneumonia. - Levaquin d/c yesterday and steroids continued. Pt does feel "some" better today. - cbc,cmp in am (3) Elevated troponin - Resolved (4) Supratherapeutic INR - Pharmacy consulted today for management of INR as INR ben today to >6 (5) Essential (primary) hypertension - Stable 08/28/17 Arely BiPAP to help with ventilatory support. Will start Rocephin for pulmonary coverage. Lasix 40mg given to help decrease pulmonary edema - Conley place to monitor urine output. Decrease Solu-medrol to 62.5mg IV q 6 hours Hold losartan as creatinine with slight increase to 1.6. Continue DuoNeb breathing treatment routinely, adding Budesonide 0.5mg nebulized BID. Coumadin on hold as INR increased to 8.93. Monitor lab. 08/29/17 Unable to tolerate being off BiPAP. Check ABG. Consult Dr. Mari - discussed case with Vivian Sawant APRN. The patient is against intubation but her and son disagreed and want her to be intubated and mechanically ventilated. Continue Solu-Medrol, DuoNeb, Pulmicort. CXR personally reviewed. Continue diuresis per cardiology. She's had good UO. Echo pending. WBC decreased to 15. Continue Rocephin; consider expanding abx. Creatinine improved to 1.4. Continue to hold ARB. INR down to 1.85; start Lovenox 30 mg daily until her INR increases to >2. Regarding nutrition, would consider hyperalimentation though there is high concern for worsening her fluid balance. 08/30/17 CXR showing decrease of pulmonary edema. 6L urine output over the past 2 days. Sodium increased to 151 secondary to diuresis. Creatinine stable at 1.3 ( losartan on hold). Will stop IV Lasix due to concern for overdiuresis. Diamox 500mg x2 today. Decrease Solu-Medrol to 62.5mg BID. Wean O2 as needed. Continue Rocephin form pulmonary coverage. Continue Lovenox until INR therapeutic. Encourage oral intake. Will need PT/OT to help increase functional status once respiratory status improves. Possible PT/OT tomorrow or the next day. Nasal saline to help decrease risk for nasal dryness.
--- NOTE | 2017-08-30 13:45 | Cardiology Progress Note ---
<Elle Blake - Last Filed: 08/30/17 16:41> Subjective Principal diagnosis: AFIB RVR Interval history: CC: CHF, AFib RVR, hypoxia Marie is seen in bed, head up at 60 degrees. She is on 15L of [place], using bipap at night. She denies chest pain. Exam Vital signs: Temperature 97.6 F 08/30/17 08:00 Pulse Rate 120 H 08/30/17 09:46 Respiratory Rate 18 08/30/17 09:46 Blood Pressure 128/67 08/30/17 09:46 Pulse Oximetry 98 08/30/17 10:34 - Constitutional no acute distress, cooperative - Routine HEENT Exam Head: Present: normocephalic Eye: Present: conjunctivae pink ENT: Present: mucous membranes dry - Routine Respiratory Exam Present: decreased breath sounds - Routine Cardiovascular Exam Present: no murmur - Routine Abdominal Exam Present: soft - Routine Extremities Exam Present: no edema - Routine Skin Exam Present: intact, dry, warm - Routine Neurological Exam Present: alert - Routine Psychiatric Exam Present: normal affect - Additional findings Additional findings: ECHO: IMPRESSION 1. Normal LV systolic function with ejection fraction of 65%. 2. Biatrial dilation. 3. Mild left ventricular hypertrophy. 4. Mild mitral regurgitation. 5. Mild tricuspid regurgitation with moderate pulmonary hypertension with estimated pulmonary artery systolic pressure of 51. 6. Mild pulmonary insufficiency. - Urinary Catheter Management Urethral Cath placed during this visit: yes Insertion date: 08/28/17 Insertion time: 08:04 Assessment and Plan - Assessment and Plan (1) Hypoxia Current visit: Yes Status: Acute (2) Supratherapeutic INR Current visit: Yes Status: Acute (3) Elevated troponin Current visit: Yes Status: Acute (4) Atrial fibrillation with RVR Current visit: Yes Status: Acute (5) Essential (primary) hypertension Current visit: Yes Status: Chronic (6) Personal history of pulmonary embolism Current visit: Yes Status: Chronic (7) Nonrheumatic mitral valve insufficiency Current visit: Yes Status: Chronic (8) Non-rheumatic tricuspid valve insufficiency Current visit: Yes Status: Chronic (9) Congestive heart failure (CHF) Current visit: Yes Status: Acute - Assessment and Plan 08/30/17 Afib hypoxia CHF ECG: sinus, QTc 431ms. Continue flecainide 50mg bid. O2 demands are improving, on 15L [place]. Attending gave Diamox 500mg today. Hospital Course Summary Disclaimer: The visit summary below is not to be considered part of the above Progress Note. Hospital Course: Impression: Generalized weakness-suspect multifactorial. She does report some improvement in body cramping since increasing her thyroid Hypoxia- I believe her underlying issues may be more cardiac, question chronic pulmonary fibrosis patient has not seen a qc manager in the past according to her. I do not believe she has pneumonia at this time Paroxysmal atrial fibrillation with rapid ventricular response Hypertension Squamous cell carcinoma skin cancer with metastases status post radiation therapy History of pulmonary embolus on warfarin Plan: We'll ask cardiology to see. I wonder the patient may have underlying cardiac issues and may benefit from an echo and further evaluation. We'll keep on telemetry for now. Her Coumadin is on hold secondary to drug interactions of warfarin with a azithromycin, her INR is 4 We'll discontinue levofloxacin as it can prolong the QT interval as well Will give flu vaccine and Tdap 08/27/2017 Joo Ulrich M.D. (1) Atrial fibrillation with RVR - Continue to monitor cardiac telemetry - Anticoagulated on Coumadin - Flecainide 50mg started, pt without obvious side effects (2) Hypoxia - 2D Echo pending - chronic pulmonary fibrosis vs Pneumonia. - Levaquin d/c yesterday and steroids continued. Pt does feel "some" better today. - cbc,cmp in am (3) Elevated troponin - Resolved (4) Supratherapeutic INR - Pharmacy consulted today for management of INR as INR ben today to >6 (5) Essential (primary) hypertension - Stable 08/28/17 Arely BiPAP to help with ventilatory support. Will start Rocephin for pulmonary coverage. Lasix 40mg given to help decrease pulmonary edema - Conley place to monitor urine output. Decrease Solu-medrol to 62.5mg IV q 6 hours Hold losartan as creatinine with slight increase to 1.6. Continue DuoNeb breathing treatment routinely, adding Budesonide 0.5mg nebulized BID. Coumadin on hold as INR increased to 8.93. Monitor lab. 08/29/17 Unable to tolerate being off BiPAP. Check ABG. Consult Dr. Mari - discussed case with Vivian Sawant APRN. The patient is against intubation but her and son disagreed and want her to be intubated and mechanically ventilated. Continue Solu-Medrol, DuoNeb, Pulmicort. CXR personally reviewed. Continue diuresis per cardiology. She's had good UO. Echo pending. WBC decreased to 15. Continue Rocephin; consider expanding abx. Creatinine improved to 1.4. Continue to hold ARB. INR down to 1.85; start Lovenox 30 mg daily until her INR increases to >2. Regarding nutrition, would consider hyperalimentation though there is high concern for worsening her fluid balance. <Tristen Schwartz - Last Filed: 09/01/17 07:59> Exam Vital signs: Temperature 96.2 F L 09/01/17 07:42 Pulse Rate 76 09/01/17 07:42 Respiratory Rate 22 09/01/17 07:42 Blood Pressure 140/74 H 09/01/17 07:42 Pulse Oximetry 95 09/01/17 07:50 - Urinary Catheter Management Urethral Cath placed during this visit: no Assessment and Plan - Assessment and Plan (1) Hypoxia Current visit: Yes Status: Acute (2) Supratherapeutic INR Current visit: Yes Status: Acute (3) Elevated troponin Current visit: Yes Status: Acute (4) Atrial fibrillation with RVR Current visit: Yes Status: Acute (5) Essential (primary) hypertension Current visit: Yes Status: Chronic (6) Personal history of pulmonary embolism Current visit: Yes Status: Chronic (7) Nonrheumatic mitral valve insufficiency Current visit: Yes Status: Chronic (8) Non-rheumatic tricuspid valve insufficiency Current visit: Yes Status: Chronic (9) Congestive heart failure (CHF) Current visit: Yes Status: Acute - Attestation Attestation Narrative: 09/01/17 07:59 Recommendation After examining the patient I agree with the above assessment. I am involved in the formulation of the patient's plan of care. Hospital Course Summary Disclaimer: The visit summary below is not to be considered part of the above Progress Note.
[2017-08-30] MEDS: SALINE 0.65% NASAL SPRAY 44 ML BOTTLE EA NOSTRIL SCH ×3 (16:38→20:28)
[2017-08-30] MEDS: CETIRIZINE 10 MG TABLET PO SCH (20:25)
[2017-08-31] MEDS: ALBUTEROL/IPRATROPIUM 2.5mg-0.5mg/3ml NEB AEROSOL SCH ×6 (01:50→20:40)
[2017-08-31] MEDS: LEVOTHYROXINE 88 MCG TABLET PO SCH (06:35)
[2017-08-31] MEDS: BUDESONIDE INH.SOLN 0.5mg/2ml NEB AEROSOL SCH ×2 (07:31→20:40)
--- NOTE | 2017-08-31 09:27 | Pharmacy Consult ---
Pharmacy Consult-Warfarin - Laboratory Information 08/27/17 08/28/17 08/28/17 04:34 04:45 13:26 INR 6.91 H* 8.93 H* 5.97 H* 08/29/17 08/30/17 08/31/17 05:15 04:08 04:20 INR 1.85 H 1.48 H 1.64 H - Consult Information We will order 3mg of warfarin today at noon. INR is increasing as expected. Thanks
[2017-08-31] MEDS: ENOXAPARIN 30 MG/0.3 ML INJECTION SQ SCH (09:50)
[2017-08-31] MEDS: GUAIFENESIN 400MG TABLET PO SCH ×2 (09:53→20:57)
[2017-08-31] MEDS: AMLODIPINE 5 MG TABLET PO SCH (09:54)
[2017-08-31] MEDS: FLECAINIDE 50 MG TABLET PO SCH ×2 (09:54→20:57)
[2017-08-31] MEDS: METHYLPREDNISOLONE SOD SUCC 125mg/2ml INJECTION IVP SCH ×2 (09:55→20:55)
[2017-08-31] MEDS: SALINE 0.65% NASAL SPRAY 44 ML BOTTLE EA NOSTRIL SCH ×4 (09:56→20:58)
[2017-08-31] MEDS ORDERED: NS FLUSH BAG 500ml IV PRN (10:31)
[2017-08-31] MEDS: CEFTRIAXONE 1 G in NS 100 ML IV SCH (10:33)
[2017-08-31] MEDS ORDERED: WARFARIN 3 MG TABLET PO SCH (12:00)
--- NOTE | 2017-08-31 12:01 | Progress Note ---
- Date 08/31/17 Subjective: Patient getting breathing treatment. Says she thinks her breathing is improving. O2 down to 8L. Says she occasionally has a productive cough. Says she is not sure how well she slept. Says her bowels are slow. Says she is starting to eat better. Objective Vital signs: Temperature 97.6 F 08/31/17 08:00 Pulse Rate 77 08/31/17 08:00 Respiratory Rate 20 08/31/17 11:20 Blood Pressure 129/66 08/31/17 08:00 Pulse Oximetry 95 08/31/17 11:20 Height/Weight/BMI: Height 5 ft 6 in Weight 84.2 kg Body Mass Index 30.4 - Constitutional Present: no acute distress - Routine HEENT Exam Eye: Present: EOMI ENT: Present: mucous membranes moist, dentition normal - Routine Respiratory Exam Present: crackles - Routine Cardiovascular Exam Present: no murmur, irregularly irregular - Routine Abdominal Exam Present: soft, normoactive bowel sounds, non distended. Absent: tenderness - Routine Extremities Exam Present: normal capillary refill - Routine Skin Exam Present: dry, warm - Routine Neurological Exam Present: alert, oriented X3, CN II-XII intact - Routine Psychiatric Exam Present: normal affect Results - Labs CBC & Chem 7: 08/31/17 04:25 08/31/17 04:25 Microbiology Results: Microbiology 08/26/17 06:42 Sputum, Expectorated Gram Stain - Final 08/26/17 06:42 Sputum, Expectorated Sputum Culture - Final Normal Respiratory Yoselin Assessment and Plan (1) Pneumonia Current visit: Yes Status: Acute (2) Hypoxia Current visit: Yes Status: Acute (3) Supratherapeutic INR Current visit: Yes Status: Acute (4) Elevated troponin Current visit: Yes Status: Acute Assessment and Plan: Assessment Acute hypoxic respiratory failure requiring noninvasive ventilation Pulmonary edema - increasing from admission Afib with RVR Suspect pulmonary fibrosis; emphysema Possible pneumonia Leukocytosis COPD/Emphysema Stage III CKD HTN Anticoagulation with Coumadin - INR elevated admission Hypernatremia (Not POA) Hypokalemia (Not POA) Plan Na up to 152. Creatine up to 1.5. K is 3.1. Will gently hydrate with D5 + KCl. Pulmonary edema has been decreasing. Decrease Solu-Medrol to 62.5mg BID. Wean O2 as needed. Continue Rocephin form pulmonary coverage. Continue Lovenox until INR therapeutic. Encourage oral intake. Needs PT/OT to help increase functional status as respiratory status improves. Nasal saline to help decrease risk for nasal dryness. Recheck BMP and Mg in am due to hypernatremia and hypokalemia. Check CBC in am due to leukocytosis. CMP ordered on 09/01/17 secondary to slight elevation of LFT. No stools charted past 2 days. Start Miralax. Case discussed with LEIA, Dr Bejarano, and Vivian with Dr Mari as well as with family. Time spent with pt care 35 minutes. Hospital Course Summary Disclaimer: The visit summary below is not to be considered part of the above Progress Note. Hospital Course: Impression: Generalized weakness-suspect multifactorial. She does report some improvement in body cramping since increasing her thyroid Hypoxia- I believe her underlying issues may be more cardiac, question chronic pulmonary fibrosis patient has not seen a measurement specialist in the past according to her. I do not believe she has pneumonia at this time Paroxysmal atrial fibrillation with rapid ventricular response Hypertension Squamous cell carcinoma skin cancer with metastases status post radiation therapy History of pulmonary embolus on warfarin Plan: We'll ask cardiology to see. I wonder the patient may have underlying cardiac issues and may benefit from an echo and further evaluation. We'll keep on telemetry for now. Her Coumadin is on hold secondary to drug interactions of warfarin with a azithromycin, her INR is 4 We'll discontinue levofloxacin as it can prolong the QT interval as well Will give flu vaccine and Tdap 08/27/2017 Joo Ulrich M.D. (1) Atrial fibrillation with RVR - Continue to monitor cardiac telemetry - Anticoagulated on Coumadin - Flecainide 50mg started, pt without obvious side effects (2) Hypoxia - 2D Echo pending - chronic pulmonary fibrosis vs Pneumonia. - Levaquin d/c yesterday and steroids continued. Pt does feel "some" better today. - cbc,cmp in am (3) Elevated troponin - Resolved (4) Supratherapeutic INR - Pharmacy consulted today for management of INR as INR ben today to >6 (5) Essential (primary) hypertension - Stable 08/28/17 Arely BiPAP to help with ventilatory support. Will start Rocephin for pulmonary coverage. Lasix 40mg given to help decrease pulmonary edema - Conley place to monitor urine output. Decrease Solu-medrol to 62.5mg IV q 6 hours Hold losartan as creatinine with slight increase to 1.6. Continue DuoNeb breathing treatment routinely, adding Budesonide 0.5mg nebulized BID. Coumadin on hold as INR increased to 8.93. Monitor lab. 08/29/17 Unable to tolerate being off BiPAP. Check ABG. Consult Dr. Mari - discussed case with Vivian Sawant APRN. The patient is against intubation but her and son disagreed and want her to be intubated and mechanically ventilated. Continue Solu-Medrol, DuoNeb, Pulmicort. CXR personally reviewed. Continue diuresis per cardiology. She's had good UO. Echo pending. WBC decreased to 15. Continue Rocephin; consider expanding abx. Creatinine improved to 1.4. Continue to hold ARB. INR down to 1.85; start Lovenox 30 mg daily until her INR increases to >2. Regarding nutrition, would consider hyperalimentation though there is high concern for worsening her fluid balance. 08/31/17 12:31 1L D5w with 20KCl for hyponatremia, hypokalemia. Start Miralax for constipation. PT/OT consulted
--- NOTE | 2017-08-31 12:17 | Cardiology Progress Note ---
<Maude Ortega - Last Filed: 09/01/17 15:17> Subjective Principal diagnosis: AFIB RVR Interval history: Marie is seen in follow up for atrial fibrillation. She is in her bed currently on 8L/NC and Catalina with infusion therapy is attempting to start an IV. She denies chest pain, palpitations, racing or skipping heart beat. Exam Vital signs: Temperature 97.6 F 08/31/17 08:00 Pulse Rate 77 08/31/17 08:00 Respiratory Rate 20 08/31/17 11:20 Blood Pressure 129/66 08/31/17 08:00 Pulse Oximetry 95 08/31/17 11:20 - Constitutional no acute distress, well nourished, cooperative - Routine HEENT Exam Head: Present: normocephalic ENT: Present: mucous membranes moist - Routine Neck Exam Absent: JVD, carotid bruit - Routine Chest/Breast/Axilla Exam Chest wall: Absent: tenderness - Routine Respiratory Exam Present: crackles (bilateral), diminished air movement (anteriorly). Absent: CTA bilaterally - Routine Cardiovascular Exam Present: no murmur, irregular rhythm. Absent: JVD - Routine Abdominal Exam Present: soft, normoactive bowel sounds - Routine Extremities Exam Present: no edema - Routine Skin Exam Present: intact, dry, warm - Routine Neurological Exam Present: alert - Routine Psychiatric Exam Present: normal affect - Additional findings Additional findings: Abnormal Lab Results 08/31/17 08/31/17 08/31/17 04:20 04:25 04:25 WBC 14.0 H RBC 3.93 L Hgb 11.2 L Hct 35.9 L MCV 91.3 MCH 28.5 MCHC 31.2 RDW Std Deviation 50.9 H Plt Count 86 L MPV 11.4 Immature Gran % (Auto) Not performed Neut % (Auto) Not performed Lymph % (Auto) Not performed [place] % (Auto) Not performed Eos % (Auto) Not performed Baso % (Auto) Not performed Neut # (Auto) Not performed Lymph # (Auto) Not performed [place] # (Auto) Not performed Eos # (Auto) Not performed Baso # (Auto) Not performed Abs Immat Gran (auto) Not performed Neutrophils % (Manual) 89.0 H Band Neutrophils % 1.0 Lymphocytes % (Manual) 2.0 L Monocytes % (Manual) 8.0 Neutrophils # (Manual) 12.5 H Band Neutrophils # 0.1 Lymphocytes # (Manual) 0.3 L Monocytes # (Manual) 1.1 H RBC Morph Comment Normal INR 1.64 H Turbidity < 20 Sodium 152 H Potassium 3.1 L Chloride 112 H Carbon Dioxide 34 H Anion Gap 6 BUN 47.0 H Creatinine 1.5 H D GFR Calculation 33 BUN/Creatinine Ratio 31 H Glucose 133 H Calculated Osmolality 306 H Calcium 8.6 Magnesium 2.3 Icterus Index < 2 Specimen Hemolysis < 15 Acetaminophen (Tylenol) 325 - 650 mg PO Q5H PRN PRN Reason: Discomfort Hydrocodone Bitart/Acetaminophen ([place] 5/325) 1 tab PO Q6H PRN PRN Reason: Pain Last Admin: 08/27/17 03:56 Dose: 1 tab Albuterol Sulfate (Proventil Neb (0.083%)) 2.5 mg AEROSOL Q2H PRN Albuterol/Ipratropium (Duoneb) 3 ml AEROSOL Q4H [facility] Last Admin: 08/31/17 11:18 Dose: 3 ml Amlodipine Besylate (Norvasc) 5 mg PO DAILY [facility] Last Admin: 08/31/17 09:54 Dose: 5 mg Budesonide (Pulmicort Inhalation) 0.5 mg AEROSOL RTBID [facility] Last Admin: 08/31/17 07:31 Dose: 0.5 mg Cetirizine HCl (Zyrtec) 10 mg PO HS [facility] Last Admin: 08/30/17 20:25 Dose: 10 mg Docusate Sodium (Colace) 100 mg PO BID PRN Enoxaparin Sodium (Lovenox) 30 mg SQ DAILY [facility] Last Admin: 08/31/17 09:50 Dose: 30 mg Flecainide Acetate (Tambocor) 50 mg PO BID [facility] Last Admin: 08/31/17 09:54 Dose: 50 mg Guaifenesin (Mucinex) 400 mg PO BID [facility] Last Admin: 08/31/17 09:53 Dose: 400 mg Ceftriaxone Sodium 1 g/ Sodium (Chloride) 100 mls @ 200 mls/hr IV Q24H [facility] Last Infusion: 08/31/17 10:34 Dose: 0 mls/hr Levothyroxine Sodium (Synthroid) 88 mcg PO ACB [facility] Last Admin: 08/31/17 06:35 Dose: 88 mcg Lorazepam (Ativan Inj) 0.5 mg IVP Q4H PRN Last Admin: 08/30/17 23:14 Dose: 0.5 mg Losartan Potassium (Cozaar) 50 mg PO DAILY [facility] Last Admin: 08/27/17 09:34 Dose: 50 mg Menthol (Ricola Sf) 1 lozenge MM PRN PRN PRN Reason: Cough Last Admin: 08/28/17 15:31 Dose: 1 lozenge Methylprednisolone Sodium Succinate (Solu-Medrol) 62.5 mg IVP Q12HR [facility] Last Admin: 08/31/17 09:55 Dose: 62.5 mg Ondansetron HCl (Zofran) 4 mg IVP Q6H PRN PRN Reason: Nausea &/or vomiting Sodium Chloride (Iv Flush) 10 - 80 ml IVF PRN PRN PRN Reason: Flushing Last Admin: 08/30/17 23:14 Dose: 10 ml Sodium Chloride (Deep Sea Nasal Moisturizing [place]) 2 spray EA NOSTRIL QID [facility] Last Admin: 08/31/17 12:12 Dose: 2 spray Sodium Chloride (Normal Saline) 500 ml IV PRN PRN PRN Reason: flush bag Trolamine Salicylate (Aspercreme) 1 applic TOP QID [facility] Last Admin: 08/31/17 12:07 Dose: Not Given Warfarin Sodium (Coumadin Protocol) 0 [facility] NOTE ANNE-MARIE - Urinary Catheter Management Urethral Cath placed during this visit: yes Insertion date: 08/28/17 Insertion time: 08:04 Assessment and Plan - Assessment and Plan (1) Atrial fibrillation with RVR Current visit: Yes Status: Acute Remains in SR, Continue Flecainide 50mg po BID (2) Hypoxia Current visit: Yes Status: Acute Improving, Now on 8L/NC (3) Elevated troponin Current visit: Yes Status: Acute (4) Supratherapeutic INR Current visit: Yes Status: Acute (5) Essential (primary) hypertension Current visit: Yes Status: Chronic (6) Personal history of pulmonary embolism Current visit: Yes Status: Chronic (7) Nonrheumatic mitral valve insufficiency Current visit: Yes Status: Chronic (8) Non-rheumatic tricuspid valve insufficiency Current visit: Yes Status: Chronic (9) Congestive heart failure (CHF) Current visit: Yes Status: Acute Lasix 40mg IV Q8H Diamox 250mg [facility] Course Summary Disclaimer: The visit summary below is not to be considered part of the above Progress Note. Hospital Course: Impression: Generalized weakness-suspect multifactorial. She does report some improvement in body cramping since increasing her thyroid Hypoxia- I believe her underlying issues may be more cardiac, question chronic pulmonary fibrosis patient has not seen a offbearer sewer pipe in the past according to her. I do not believe she has pneumonia at this time Paroxysmal atrial fibrillation with rapid ventricular response Hypertension Squamous cell carcinoma skin cancer with metastases status post radiation therapy History of pulmonary embolus on warfarin Plan: We'll ask cardiology to see. I wonder the patient may have underlying cardiac issues and may benefit from an echo and further evaluation. We'll keep on telemetry for now. Her Coumadin is on hold secondary to drug interactions of warfarin with a azithromycin, her INR is 4 We'll discontinue levofloxacin as it can prolong the QT interval as well Will give flu vaccine and Tdap 08/27/2017 Joo Ulrich M.D. (1) Atrial fibrillation with RVR - Continue to monitor cardiac telemetry - Anticoagulated on Coumadin - Flecainide 50mg started, pt without obvious side effects (2) Hypoxia - 2D Echo pending - chronic pulmonary fibrosis vs Pneumonia. - Levaquin d/c yesterday and steroids continued. Pt does feel "some" better today. - cbc,cmp in am (3) Elevated troponin - Resolved (4) Supratherapeutic INR - Pharmacy consulted today for management of INR as INR ben today to >6 (5) Essential (primary) hypertension - Stable 08/28/17 Arely BiPAP to help with ventilatory support. Will start Rocephin for pulmonary coverage. Lasix 40mg given to help decrease pulmonary edema - Con[place] place to monitor urine output. Decrease Solu-medrol to 62.5mg IV q 6 hours Hold losartan as creatinine with slight increase to 1.6. Continue DuoNeb breathing treatment routinely, adding Budesonide 0.5mg nebulized BID. Coumadin on hold as INR increased to 8.93. Monitor lab. 08/29/17 Unable to tolerate being off BiPAP. Check ABG. Consult Dr. Mari - discussed case with Vivian Sawant APRN. The patient is against intubation but her and son disagreed and want her to be intubated and mechanically ventilated. Continue Solu-Medrol, DuoNeb, Pulmicort. CXR personally reviewed. Continue diuresis per cardiology. She's had good UO. Echo pending. WBC decreased to 15. Continue Rocephin; consider expanding abx. Creatinine improved to 1.4. Continue to hold ARB. INR down to 1.85; start Lovenox 30 mg daily until her INR increases to >2. Regarding nutrition, would consider hyperalimentation though there is high concern for worsening her fluid balance. <Tristen Schwartz - Last Filed: 09/04/17 12:54> Exam Vital signs: Temperature 97.4 F 09/04/17 07:41 Pulse Rate 83 09/04/17 07:41 Respiratory Rate 24 09/04/17 07:41 Blood Pressure 122/69 09/04/17 07:41 Pulse Oximetry 94 09/03/17 23:24 - Urinary Catheter Management Urethral Cath placed during this visit: no Assessment and Plan - Assessment and Plan (1) Hypoxia Current visit: Yes Status: Acute (2) Supratherapeutic INR Current visit: Yes Status: Acute (3) Elevated troponin Current visit: Yes Status: Acute (4) Atrial fibrillation with RVR Current visit: Yes Status: Acute (5) Essential (primary) hypertension Current visit: Yes Status: Chronic (6) Personal history of pulmonary embolism Current visit: Yes Status: Chronic (7) Nonrheumatic mitral valve insufficiency Current visit: Yes Status: Chronic (8) Non-rheumatic tricuspid valve insufficiency Current visit: Yes Status: Chronic (9) Congestive heart failure (CHF) Current visit: Yes Status: Acute - Attestation Attestation Narrative: 09/04/17 12:54 Recommendation After examining the patient I agree with the above assessment. I am involved in the formulation of the patient's plan of care. Hospital Course Summary Disclaimer: The visit summary below is not to be considered part of the above Progress Note.
[2017-08-31] MEDS ORDERED: POTASSIUM CHLORIDE INJ 40 MEQ in D5W 1,000 ML IV SCH (12:30)
[2017-08-31] MEDS: POLYETHYL GLYCOL 3350 17gm PACKET PO SCH (13:55)
--- NOTE | 2017-08-31 15:59 | XRay Report ---
EXAM: XR chest 1V HISTORY: F/U pulmonary edema COMPARISON: Prior examination dated 08/30/2017 FINDINGS: Cardiomediastinal silhouette is stable, the heart remains mildly enlarged. The trachea is midline is no evidence mediastinal widening. There are again noted bilateral interstitial opacities are essentially unchanged when compared to the prior examination. No dense focal airspace consolidation is seen. The costophrenic angles remain clear. The bony thorax is stable. IMPRESSION: 1. Cardiomegaly with no significant interval change in the interstitial edema/congestive changes. .
--- NOTE | 2017-08-31 16:14 | Pulmonology Progress Note ---
Subjective Principal diagnosis: AFIB RVR Interval history: weak. respiratory status is improved. on 8 lpm O2. NSR no pain or dyspnea. has BIPAP but isn't sure if she is wearing it Exam Vital signs: Temperature 97.6 F 08/31/17 08:00 Pulse Rate 77 08/31/17 08:00 Respiratory Rate 24 08/31/17 15:28 Blood Pressure 129/66 08/31/17 08:00 Pulse Oximetry 92 08/31/17 15:28 - Constitutional no acute distress Comments: appears chronically ill very weak - Routine Respiratory Exam Absent: accessory muscle use, wheezes - Routine Cardiovascular Exam Present: RRR - Routine Abdominal Exam Present: soft - Routine Extremities Exam Absent: cyanosis, clubbing - Urinary Catheter Management Urethral Cath placed during this visit: yes Insertion date: 08/28/17 Insertion time: 08:04 Progress Note-A&P - Time Spent With Patient Total time spent is greater than 50% in coordination of care (as documented) at patient's floor/unit and/or counseling patient: less than 15 minutes (1) Acute respiratory failure with hypoxia Status: Acute Assessment and plan: improving, albeit slowly. likely contributors are weakness, hypoventilation and CHF. Current Visit: Yes (2) Atrial fibrillation with RVR Status: Acute Assessment and plan: appears to be controlled Current Visit: Yes (3) Congestive heart failure (CHF) Status: Acute Assessment and plan: CXR still shows bilateral airspace opacities. WBC mildly elevated but sputum shows normal keerthi. No clear evidence for infection. aspiration is also a consideration for ongoing respiratory issues. Current Visit: Yes
[2017-08-31] MEDS: acetaZOLAMIDE 250 MG TABLET PO SCH (18:06)
[2017-08-31] MEDS: SALINE FLUSH 10ml SYRINGE IVF PRN ×2 (20:55→21:56)
[2017-08-31] MEDS: CETIRIZINE 10 MG TABLET PO SCH (20:57)
[2017-09-01] MEDS: FUROSEMIDE 40 MG/4 ML INJECTION IVP SCH ×3 (00:19→17:55)
[2017-09-01] MEDS: SALINE FLUSH 10ml SYRINGE IVF PRN ×2 (00:20→17:54)
[2017-09-01] MEDS: ALBUTEROL/IPRATROPIUM 2.5mg-0.5mg/3ml NEB AEROSOL SCH ×6 (02:06→21:16)
[2017-09-01] MEDS: LEVOTHYROXINE 88 MCG TABLET PO SCH (06:16)
[2017-09-01] MEDS: BUDESONIDE INH.SOLN 0.5mg/2ml NEB AEROSOL SCH ×2 (07:55→21:16)
--- NOTE | 2017-09-01 08:48 | Pharmacy Consult ---
Pharmacy Consult-Warfarin - Laboratory Information 08/27/17 08/28/17 08/28/17 04:34 04:45 13:26 INR 6.91 H* 8.93 H* 5.97 H* 08/29/17 08/30/17 08/31/17 05:15 04:08 04:20 INR 1.85 H 1.48 H 1.64 H 09/01/17 04:56 INR 1.91 H - Consult Information Ordered warfarin 3mg po today at noon. Thank you.
--- NOTE | 2017-09-01 09:23 | Progress Note ---
<Jaquelin Barnes D - Last Filed: 09/01/17 09:16> - Date 09/01/17 Subjective: Marie was resting in bed, and easily awakened when I came into her room. She reports that her breathing is better, currently she's off of BiPAP. She denies chest pain. She denies nausea/vomiting but her oral intake has been poor. She hasn't had a documented bowel movement during this hospitalization. She is weak and really hasn't been out of bed, or even sitting up. She's not sure if she's ready to increase her activity yet. Objective Vital signs: Temperature 96.2 F L 09/01/17 07:42 Pulse Rate 76 09/01/17 07:42 Respiratory Rate 28 H 09/01/17 07:55 Blood Pressure 140/74 H 09/01/17 07:42 Pulse Oximetry 100 09/01/17 07:55 Height/Weight/BMI: Height 1.68 m Weight 83.6 kg Body Mass Index 30.4 - Constitutional Present: no acute distress, thin - Routine HEENT Exam ENT: Present: mucous membranes dry - Routine Respiratory Exam Present: decreased breath sounds, rales (b/l) - Routine Cardiovascular Exam Present: irregularly irregular - Routine Abdominal Exam Present: soft, normoactive bowel sounds, non distended, non tender - Routine Extremities Exam Present: edema (trace pretibial edema) - Routine Skin Exam Present: intact, dry, warm - Routine Neurological Exam Present: alert - Routine Psychiatric Exam Present: cooperative. Absent: normal affect (flat; depressed) Results - Labs CBC & Chem 7: 09/01/17 04:56 09/01/17 04:56 Microbiology Results: Microbiology 08/26/17 06:42 Sputum, Expectorated Gram Stain - Final 08/26/17 06:42 Sputum, Expectorated Sputum Culture - Final Normal Respiratory Yoselin Assessment and Plan (1) Pneumonia Current visit: Yes Status: Acute (2) Hypoxia Current visit: Yes Status: Acute (3) Supratherapeutic INR Current visit: Yes Status: Acute (4) Elevated troponin Current visit: Yes Status: Acute Assessment and Plan: Assessment Acute hypoxic respiratory failure requiring noninvasive ventilation Pulmonary edema - increasing from admission Afib with RVR Suspect pulmonary fibrosis; emphysema Possible pneumonia Leukocytosis COPD/Emphysema Stage III CKD HTN Anticoagulation with Coumadin - INR elevated admission Hypernatremia (Not POA) Hypokalemia (Not POA) Constipation Plan Continue diuresis per Dr. Schwartz (Lasix 40 mg IV TID) - Na improved to 149; K up to 3.4 (KDur increased to TID). Renal function slightly improved (creatinine down from 1.5 to 1.4). Currently on 9L of O2 and saturating 95%. Weight peaked at 90.4 kg on 08/28; today is down to 83.6 kg. Fluid balance negative. Leukocytosis, suspect steroid induced. Continue Rocephin, day #5 for possible pneumonia. Continue Solu-Medrol 62.5 mg BID; continue breathing treatments per Dr. Mari. Also consideration for aspiration as potential cause for ongoing resp failure - she was seen by Speech therapy on 08/30/17, recommended soft diet as tolerated; biggest limitation is respiratory status; rec. small sips/bites when alert and upright. She did not require IP speech therapy. Continue MiraLAX; stop Colace and start SennaPlus BID; MOM PRN. Oral intake is starting to improve; with flat affect could consider low-dose mirtazapine. Encourage activity - up to chair if able. Evaluated by PT/OT yesterday. She was independent in all of her ADLs prior to hospitalization. They are recommending IP PT/OT to help her return to PLOF. Start bladder retraining; hope to DC Conley soon. Coumadin per protocol - INR 1.91 today. Continue Lovenox until INR reaches 2.0. LFTs continue to show slight elevations (AST 45 & AP 211) High risk medication in use: Ativan IV. DVT Prophylaxis: SCD's Resuscitation Status: Do Not Resuscitate Hospital Course Summary Disclaimer: The visit summary below is not to be considered part of the above Progress Note. Hospital Course: Impression: Generalized weakness-suspect multifactorial. She does report some improvement in body cramping since increasing her thyroid Hypoxia- I believe her underlying issues may be more cardiac, question chronic pulmonary fibrosis patient has not seen a branch operation evaluation manager in the past according to her. I do not believe she has pneumonia at this time Paroxysmal atrial fibrillation with rapid ventricular response Hypertension Squamous cell carcinoma skin cancer with metastases status post radiation therapy History of pulmonary embolus on warfarin Plan: We'll ask cardiology to see. I wonder the patient may have underlying cardiac issues and may benefit from an echo and further evaluation. We'll keep on telemetry for now. Her Coumadin is on hold secondary to drug interactions of warfarin with a azithromycin, her INR is 4 We'll discontinue levofloxacin as it can prolong the QT interval as well Will give flu vaccine and Tdap 08/27/2017 Joo Ulrich M.D. (1) Atrial fibrillation with RVR - Continue to monitor cardiac telemetry - Anticoagulated on Coumadin - Flecainide 50mg started, pt without obvious side effects (2) Hypoxia - 2D Echo pending - chronic pulmonary fibrosis vs Pneumonia. - Levaquin d/c yesterday and steroids continued. Pt does feel "some" better today. - cbc,cmp in am (3) Elevated troponin - Resolved (4) Supratherapeutic INR - Pharmacy consulted today for management of INR as INR ben today to >6 (5) Essential (primary) hypertension - Stable 08/28/17 Arely BiPAP to help with ventilatory support. Will start Rocephin for pulmonary coverage. Lasix 40mg given to help decrease pulmonary edema - Con[place] place to monitor urine output. Decrease Solu-medrol to 62.5mg IV q 6 hours Hold losartan as creatinine with slight increase to 1.6. Continue DuoNeb breathing treatment routinely, adding Budesonide 0.5mg nebulized BID. Coumadin on hold as INR increased to 8.93. Monitor lab. 08/29/17 Unable to tolerate being off BiPAP. Check ABG. Consult Dr. Mari - discussed case with Vivian Sawant APRN. The patient is against intubation but her and son disagreed and want her to be intubated and mechanically ventilated. Continue Solu-Medrol, DuoNeb, Pulmicort. CXR personally reviewed. Continue diuresis per cardiology. She's had good UO. Echo pending. WBC decreased to 15. Continue Rocephin; consider expanding abx. Creatinine improved to 1.4. Continue to hold ARB. INR down to 1.85; start Lovenox 30 mg daily until her INR increases to >2. Regarding nutrition, would consider hyperalimentation though there is high concern for worsening her fluid balance. 08/30/17 CXR showing decrease of pulmonary edema. 6L urine output over the past 2 days. Sodium increased to 151 secondary to diuresis. Creatinine stable at 1.3 ( losartan on hold). Will stop IV Lasix due to concern for overdiuresis. Diamox 500mg x2 today. Decrease Solu-Medrol to 62.5mg BID. Wean O2 as needed. Continue Rocephin form pulmonary coverage. Continue Lovenox until INR therapeutic. Encourage oral intake. Will need PT/OT to help increase functional status once respiratory status improves. Possible PT/OT tomorrow or the next day. Nasal saline to help decrease risk for nasal dryness. 08/31/17 Na up to 152. Creatine up to 1.5. K is 3.1. Will gently hydrate with D5 + KCl. Pulmonary edema has been decreasing. Decrease Solu-Medrol to 62.5mg BID. Wean O2 as needed. Continue Rocephin form pulmonary coverage. Continue Lovenox until INR therapeutic. Encourage oral intake. Needs PT/OT to help increase functional status as respiratory status improves. Nasal saline to help decrease risk for nasal dryness. Recheck BMP and Mg in am due to hypernatremia and hypokalemia. Check CBC in am due to leukocytosis. 09/01/[address] Schwartz (Lasix 40 mg IV TID) - Na improved to 149; K up to 3.4. Renal function slightly improved (creatinine down from 1.5 to 1.4). Currently on 9L of O2 and saturating 95%. Weight peaked at 90.4 kg on 08/28; today is down to 83.6 kg. Fluid balance negative. Leukocytosis, suspect steroid induced. Continue Rocephin, day #5 for possible pneumonia. Continue Solu-Medrol 62.5 mg BID; continue breathing treatments per Dr. Mari. Also consideration for aspiration as potential cause for ongoing resp failure - she was seen by Speech therapy on 08/30/17, recommended soft diet as tolerated; biggest limitation is respiratory status; rec. small sips/bites when alert and upright. She did not require IP speech therapy. Continue MiraLAX; stop Colace and start SennaPlus BID; MOM PRN. Oral intake is starting to improve; with flat affect could consider low-dose mirtazapine. Encourage activity - up to chair if able. Evaluated by PT/OT yesterday. She was independent in all of her ADLs prior to hospitalization. They are recommending IP PT/OT to help her return to PLOF. Start bladder retraining; hope to DC [place] soon. Coumadin per protocol - INR 1.91 today. Continue Lovenox until INR reaches 2.0. LFTs continue to show slight elevations (AST 45 & AP 211) <Kelvin De Souza IV - Last Filed: 09/01/17 13:40> - Date 09/01/17 Objective Vital signs: Temperature 96.2 F L 09/01/17 07:42 Pulse Rate 87 09/01/17 08:00 Respiratory Rate 24 09/01/17 11:03 Blood Pressure 140/74 H 09/01/17 07:42 Pulse Oximetry 99 09/01/17 11:03 Height/Weight/BMI: Height 5 ft 6 in Weight 83.6 kg Body Mass Index 30.4 Results - Labs CBC & Chem 7: 09/01/17 04:56 09/01/17 04:56 Microbiology Results: Microbiology 08/26/17 06:42 Sputum, Expectorated Gram Stain - Final 08/26/17 06:42 Sputum, Expectorated Sputum Culture - Final Normal Respiratory Yoselin - ABG Interpretation ABG results: 09/01/17 13:06 ABG pH 7.430 ABG pCO2 46 H ABG pO2 77 L ABG HCO3 31 H ABG Total CO2 31.9 H ABG O2 Saturation 96.0 ABG Base Excess 5.3 H Assessment and Plan (1) Pneumonia Current visit: Yes Status: Acute (2) Hypoxia Current visit: Yes Status: Acute (3) Supratherapeutic INR Current visit: Yes Status: Acute (4) Elevated troponin Current visit: Yes Status: Acute Assessment and Plan: I have independently interviewed and examined the patient. I have reviewed the medical record. The plan has been discussed and formulated with CAVALRY SCOUT as above with the additions below. Marie was more lethargic. She was up in a chair and had been there for about 2 hours. pCO2 was not elevated on ABG. Family present and think she is sleeping more during the day than at night. Breath sounds diminished with some crackles Heart irregularly irregular abdomen s/nt/nd BLE pedal edema Na and Cr improved with d5. Resuming lasix. Replace K. More aggressive bowel regimen. Hospital Course Summary Disclaimer: The visit summary below is not to be considered part of the above Progress Note. Hospital Course: 09/01/17 13:39 Na and Cr improved with d5. Resuming lasix. Replace K. More aggressive bowel regimen.
[2017-09-01] MEDS: METHYLPREDNISOLONE SOD SUCC 125mg/2ml INJECTION IVP SCH ×2 (10:12→22:15)
[2017-09-01] MEDS: GUAIFENESIN 400MG TABLET PO SCH ×2 (10:12→22:12)
[2017-09-01] MEDS: acetaZOLAMIDE 250 MG TABLET PO SCH (10:12)
[2017-09-01] MEDS: ENOXAPARIN 30 MG/0.3 ML INJECTION SQ SCH (10:12)
[2017-09-01] MEDS: AMLODIPINE 5 MG TABLET PO SCH (10:13)
[2017-09-01] MEDS: POLYETHYL GLYCOL 3350 17gm PACKET PO SCH ×2 (10:13→17:55)
[2017-09-01] MEDS: FLECAINIDE 50 MG TABLET PO SCH ×2 (10:13→22:14)
[2017-09-01] MEDS: SALINE 0.65% NASAL SPRAY 44 ML BOTTLE EA NOSTRIL SCH ×4 (10:15→22:14)
[2017-09-01] MEDS: ACETAMINOPHEN 325 MG TABLET PO PRN ×2 (10:20→22:12)
[2017-09-01] MEDS: CEFTRIAXONE 1 G in NS 100 ML IV SCH (10:35)
[2017-09-01] MEDS ORDERED: WARFARIN 3 MG TABLET PO SCH (12:00)
--- NOTE | 2017-09-01 15:20 | Cardiology Progress Note ---
<Maude Ortega - Last Filed: 09/01/17 17:55> Subjective Principal diagnosis: AFIB RVR Interval history: Marie is seen in follow up for atrial fibrillation. She is in her bed currently on 8L/NC, her is at the bedside. She is sleeping soundly and does not respond to touch. Exam Vital signs: Temperature 96.2 F L 09/01/17 07:42 Pulse Rate 87 09/01/17 08:00 Respiratory Rate 24 09/01/17 11:03 Blood Pressure 140/74 H 09/01/17 07:42 Pulse Oximetry 93 09/01/17 14:10 - Constitutional no acute distress, somnolent - Routine HEENT Exam Head: Present: normocephalic ENT: Present: mucous membranes moist - Routine Neck Exam Absent: carotid bruit - Routine Chest/Breast/Axilla Exam Chest wall: Absent: tenderness - Routine Respiratory Exam Present: diminished air movement (anteriorly). Absent: dyspnea - Routine Cardiovascular Exam Present: no murmur, irregular rhythm - Routine Abdominal Exam Present: soft - Routine Extremities Exam Present: edema - Routine Skin Exam Present: intact, dry, warm - Routine Psychiatric Exam Present: unable to assess - Urinary Catheter Management Urethral Cath placed during this visit: yes Insertion date: 08/28/17 Insertion time: 08:04 Assessment and Plan - Assessment and Plan (1) Atrial fibrillation with RVR Current visit: Yes Status: Acute Remains SR with PACs (2) Hypoxia Current visit: Yes Status: Acute (3) Elevated troponin Current visit: Yes Status: Acute (4) Supratherapeutic INR Current visit: Yes Status: Acute (5) Essential (primary) hypertension Current visit: Yes Status: Chronic (6) Personal history of pulmonary embolism Current visit: Yes Status: Chronic (7) Nonrheumatic mitral valve insufficiency Current visit: Yes Status: Chronic (8) Non-rheumatic tricuspid valve insufficiency Current visit: Yes Status: Chronic (9) Congestive heart failure (CHF) Current visit: Yes Status: Acute Continue diuresis Monitor renal and electrolytes Hospital Course Summary Disclaimer: The visit summary below is not to be considered part of the above Progress Note. Hospital Course: Impression: Generalized weakness-suspect multifactorial. She does report some improvement in body cramping since increasing her thyroid Hypoxia- I believe her underlying issues may be more cardiac, question chronic pulmonary fibrosis patient has not seen a police detention attendant in the past according to her. I do not believe she has pneumonia at this time Paroxysmal atrial fibrillation with rapid ventricular response Hypertension Squamous cell carcinoma skin cancer with metastases status post radiation therapy History of pulmonary embolus on warfarin Plan: We'll ask cardiology to see. I wonder the patient may have underlying cardiac issues and may benefit from an echo and further evaluation. We'll keep on telemetry for now. Her Coumadin is on hold secondary to drug interactions of warfarin with a azithromycin, her INR is 4 We'll discontinue levofloxacin as it can prolong the QT interval as well Will give flu vaccine and Tdap 08/27/2017 Joo Ulrich M.D. (1) Atrial fibrillation with RVR - Continue to monitor cardiac telemetry - Anticoagulated on Coumadin - Flecainide 50mg started, pt without obvious side effects (2) Hypoxia - 2D Echo pending - chronic pulmonary fibrosis vs Pneumonia. - Levaquin d/c yesterday and steroids continued. Pt does feel "some" better today. - cbc,cmp in am (3) Elevated troponin - Resolved (4) Supratherapeutic INR - Pharmacy consulted today for management of INR as INR ben today to >6 (5) Essential (primary) hypertension - Stable 08/28/17 Arely BiPAP to help with ventilatory support. Will start Rocephin for pulmonary coverage. Lasix 40mg given to help decrease pulmonary edema - Conley place to monitor urine output. Decrease Solu-medrol to 62.5mg IV q 6 hours Hold losartan as creatinine with slight increase to 1.6. Continue DuoNeb breathing treatment routinely, adding Budesonide 0.5mg nebulized BID. Coumadin on hold as INR increased to 8.93. Monitor lab. 08/29/17 Unable to tolerate being off BiPAP. Check ABG. Consult Dr. Mari - discussed case with Vivian Sawant APRN. The patient is against intubation but her and son disagreed and want her to be intubated and mechanically ventilated. Continue Solu-Medrol, DuoNeb, Pulmicort. CXR personally reviewed. Continue diuresis per cardiology. She's had good UO. Echo pending. WBC decreased to 15. Continue Rocephin; consider expanding abx. Creatinine improved to 1.4. Continue to hold ARB. INR down to 1.85; start Lovenox 30 mg daily until her INR increases to >2. Regarding nutrition, would consider hyperalimentation though there is high concern for worsening her fluid balance. <Tristen Schwartz - Last Filed: 09/04/17 12:56> Exam Vital signs: Temperature 97.4 F 09/04/17 07:41 Pulse Rate 83 09/04/17 07:41 Respiratory Rate 24 09/04/17 07:41 Blood Pressure 122/69 09/04/17 07:41 Pulse Oximetry 94 09/03/17 23:24 - Urinary Catheter Management Urethral Cath placed during this visit: no Assessment and Plan - Assessment and Plan (1) Hypoxia Current visit: Yes Status: Acute (2) Supratherapeutic INR Current visit: Yes Status: Acute (3) Elevated troponin Current visit: Yes Status: Acute (4) Atrial fibrillation with RVR Current visit: Yes Status: Acute (5) Essential (primary) hypertension Current visit: Yes Status: Chronic (6) Personal history of pulmonary embolism Current visit: Yes Status: Chronic (7) Nonrheumatic mitral valve insufficiency Current visit: Yes Status: Chronic (8) Non-rheumatic tricuspid valve insufficiency Current visit: Yes Status: Chronic (9) Congestive heart failure (CHF) Current visit: Yes Status: Acute - Attestation Attestation Narrative: 09/04/17 12:56 Recommendation After examining the patient I agree with the above assessment. I am involved in the formulation of the patient's plan of care. Hospital Course Summary Disclaimer: The visit summary below is not to be considered part of the above Progress Note.
[2017-09-01] MEDS: CETIRIZINE 10 MG TABLET PO SCH (22:13)
[2017-09-01] MEDS: SENNA + DOCUSATE TABLET PO SCH (22:13)
[2017-09-02] MEDS: ALBUTEROL/IPRATROPIUM 2.5mg-0.5mg/3ml NEB AEROSOL SCH ×7 (01:16→22:53)
[2017-09-02] MEDS: FUROSEMIDE 40 MG/4 ML INJECTION IVP SCH ×3 (01:30→17:28)
[2017-09-02] MEDS: LEVOTHYROXINE 88 MCG TABLET PO SCH (06:05)
--- NOTE | 2017-09-02 07:12 | Pharmacy Consult ---
Pharmacy Consult-Warfarin - Laboratory Information 08/27/17 08/28/17 08/28/17 04:34 04:45 13:26 INR 6.91 H* 8.93 H* 5.97 H* 08/29/17 08/30/17 08/31/17 05:15 04:08 04:20 INR 1.85 H 1.48 H 1.64 H 09/01/17 09/02/17 04:56 04:27 INR 1.91 H 2.51 H - Consult Information Significant jump in INR so dose of warfarin will be reduced to 1mg p.o. today at noon. Thanks
[2017-09-02] MEDS: BUDESONIDE INH.SOLN 0.5mg/2ml NEB AEROSOL SCH ×2 (07:48→18:58)
[2017-09-02] MEDS: AMLODIPINE 5 MG TABLET PO SCH (09:11)
[2017-09-02] MEDS: ENOXAPARIN 30 MG/0.3 ML INJECTION SQ SCH (09:11)
[2017-09-02] MEDS: SALINE 0.65% NASAL SPRAY 44 ML BOTTLE EA NOSTRIL SCH ×4 (09:11→20:49)
[2017-09-02] MEDS: GUAIFENESIN 400MG TABLET PO SCH ×2 (09:11→20:47)
[2017-09-02] MEDS: SALINE FLUSH 10ml SYRINGE IVF PRN ×3 (09:12→20:59)
[2017-09-02] MEDS: SENNA + DOCUSATE TABLET PO SCH ×2 (09:12→20:51)
[2017-09-02] MEDS: acetaZOLAMIDE 250 MG TABLET PO SCH (09:12)
[2017-09-02] MEDS: FLECAINIDE 50 MG TABLET PO SCH ×2 (09:12→20:46)
[2017-09-02] MEDS: POLYETHYL GLYCOL 3350 17gm PACKET PO SCH ×2 (09:12→20:48)
[2017-09-02] MEDS: METHYLPREDNISOLONE SOD SUCC 125mg/2ml INJECTION IVP SCH ×2 (09:13→20:45)
[2017-09-02] MEDS: CEFTRIAXONE 1 G in NS 100 ML IV SCH (09:14)
--- NOTE | 2017-09-02 10:09 | Progress Note ---
<Jaquelin Barnes D - Last Filed: 09/02/17 10:06> - Date 09/02/17 Subjective: Marie was receiving a bed bath this am. She complains of feeling chilled, but otherwise feels like her breathing is improving. She's on 8L of oxygen and was not in any resp distress. She denies chest pain. She was up in the chair a couple times yesterday, and she described that process as "slow". No abdominal pain or GI complaints. Oral intake has been improving. Objective Vital signs: Temperature 97.0 F 09/02/17 07:58 Pulse Rate 78 09/02/17 07:58 Respiratory Rate 18 09/02/17 07:58 Blood Pressure 144/66 H 09/02/17 07:58 Pulse Oximetry 96 09/02/17 07:58 Height/Weight/BMI: Height 1.68 m Weight 82.2 kg Body Mass Index 30.4 - Constitutional Present: no acute distress, thin, other (appears weak) - Routine HEENT Exam ENT: Present: mucous membranes dry, oropharynx clear (no thrush) - Routine Respiratory Exam Present: decreased breath sounds - Routine Cardiovascular Exam Present: RRR, S1, S2 - Routine Abdominal Exam Present: soft, normoactive bowel sounds, non distended, non tender - Routine Extremities Exam Present: edema (trace b/l) - Routine Skin Exam Present: intact, pallor, warm - Routine Neurological Exam Present: alert, oriented X3 - Routine Psychiatric Exam Present: normal thought process, cooperative Results - Labs CBC & Chem 7: 09/02/17 04:27 09/02/17 04:27 Microbiology Results: Microbiology 08/26/17 06:42 Sputum, Expectorated Gram Stain - Final 08/26/17 06:42 Sputum, Expectorated Sputum Culture - Final Normal Respiratory Yoselin - ABG Interpretation ABG results: 09/01/17 13:06 ABG pH 7.430 ABG pCO2 46 H ABG pO2 77 L ABG HCO3 31 H ABG Total CO2 31.9 H ABG O2 Saturation 96.0 ABG Base Excess 5.3 H Assessment and Plan (1) Pneumonia Current visit: Yes Status: Acute (2) Hypoxia Current visit: Yes Status: Acute (3) Supratherapeutic INR Current visit: Yes Status: Acute (4) Elevated troponin Current visit: Yes Status: Acute Assessment and Plan: Assessment Acute hypoxic respiratory failure requiring noninvasive ventilation Pulmonary edema - increasing from admission Afib with RVR - currently in sinus Suspect pulmonary fibrosis; emphysema Possible pneumonia Leukocytosis COPD/Emphysema Stage III CKD HTN Anticoagulation with Coumadin - INR elevated admission Hypernatremia (Not POA) Hypokalemia (Not POA) Constipation Plan Continue to encourage activity - up to chair, PT/OT, etc. Continue diuresis (Lasix 40 mg TID) per Dr. Schwartz - Na actually down to 148; K still low at 3.4. BUN has increased to 52 while Cr stable at 1.4. CO2 is 31. Wean down oxygen as able. Leukocytosis - WBC down to 14.2; continue Rocephin day #6 for poss. pneumonia. Still no documented BM - order dulcolax supp x1; consider lactulose. Abdominal exam is benign - no large suspicion for ileus at this point but may need imaging to investigate further if constipation persists. Consider mirtazapine, especially with overall reduced intake and flat/depressed affect. INR up to 2.51 - per pharmacy protocol. K still slightly low at 3.4. - increase KDur. Hospital Course Summary Disclaimer: The visit summary below is not to be considered part of the above Progress Note. Hospital Course: Impression: Generalized weakness-suspect multifactorial. She does report some improvement in body cramping since increasing her thyroid Hypoxia- I believe her underlying issues may be more cardiac, question chronic pulmonary fibrosis patient has not seen a supervisor sawmill in the past according to her. I do not believe she has pneumonia at this time Paroxysmal atrial fibrillation with rapid ventricular response Hypertension Squamous cell carcinoma skin cancer with metastases status post radiation therapy History of pulmonary embolus on warfarin Plan: We'll ask cardiology to see. I wonder the patient may have underlying cardiac issues and may benefit from an echo and further evaluation. We'll keep on telemetry for now. Her Coumadin is on hold secondary to drug interactions of warfarin with a azithromycin, her INR is 4 We'll discontinue levofloxacin as it can prolong the QT interval as well Will give flu vaccine and Tdap 08/27/2017 Joo Ulrich M.D. (1) Atrial fibrillation with RVR - Continue to monitor cardiac telemetry - Anticoagulated on Coumadin - Flecainide 50mg started, pt without obvious side effects (2) Hypoxia - 2D Echo pending - chronic pulmonary fibrosis vs Pneumonia. - Levaquin d/c yesterday and steroids continued. Pt does feel "some" better today. - cbc,cmp in am (3) Elevated troponin - Resolved (4) Supratherapeutic INR - Pharmacy consulted today for management of INR as INR ben today to >6 (5) Essential (primary) hypertension - Stable 08/28/17 Arely BiPAP to help with ventilatory support. Will start Rocephin for pulmonary coverage. Lasix 40mg given to help decrease pulmonary edema - Conley place to monitor urine output. Decrease Solu-medrol to 62.5mg IV q 6 hours Hold losartan as creatinine with slight increase to 1.6. Continue DuoNeb breathing treatment routinely, adding Budesonide 0.5mg nebulized BID. Coumadin on hold as INR increased to 8.93. Monitor lab. 08/29/17 Unable to tolerate being off BiPAP. Check ABG. Consult Dr. Mari - discussed case with Vivian Sawant APRN. The patient is against intubation but her and son disagreed and want her to be intubated and mechanically ventilated. Continue Solu-Medrol, DuoNeb, Pulmicort. CXR personally reviewed. Continue diuresis per cardiology. She's had good UO. Echo pending. WBC decreased to 15. Continue Rocephin; consider expanding abx. Creatinine improved to 1.4. Continue to hold ARB. INR down to 1.85; start Lovenox 30 mg daily until her INR increases to >2. Regarding nutrition, would consider hyperalimentation though there is high concern for worsening her fluid balance. 09/02/17 Continue to encourage activity - up to chair, PT/OT, etc. Continue diuresis (Lasix 40 mg TID) per Dr. Schwartz - Na actually down to 148; K still low at 3.4. BUN has increased to 52 while Cr stable at 1.4. CO2 is 31. Wean down oxygen as able. Leukocytosis - WBC down to 14.2; continue Rocephin day #6 for poss. pneumonia. Still no documented BM - order dulcolax supp x1; consider lactulose. Abdominal exam is benign - no large suspicion for ileus at this point but may need imaging to investigate further if constipation persists. Consider mirtazapine, especially with overall reduced intake and flat/depressed affect. INR up to 2.51 - per pharmacy protocol. K still slightly low at 3.4. - increase KDur. <Kelvin De Souza IV - Last Filed: 09/02/17 16:24> - Date 09/02/17 Objective Vital signs: Temperature 98.7 F 09/02/17 15:03 Pulse Rate 93 09/02/17 15:03 Respiratory Rate 27 H 09/02/17 15:35 Blood Pressure 119/64 09/02/17 15:03 Pulse Oximetry 96 09/02/17 15:52 Height/Weight/BMI: Height 5 ft 6 in Weight 82.2 kg Body Mass Index 30.4 Results - Labs CBC & Chem 7: 09/02/17 04:27 09/02/17 04:27 Microbiology Results: Microbiology 08/26/17 06:42 Sputum, Expectorated Gram Stain - Final 08/26/17 06:42 Sputum, Expectorated Sputum Culture - Final Normal Respiratory Yoselin - ABG Interpretation ABG results: 09/01/17 13:06 ABG pH 7.430 ABG pCO2 46 H ABG pO2 77 L ABG HCO3 31 H ABG Total CO2 31.9 H ABG O2 Saturation 96.0 ABG Base Excess 5.3 H Assessment and Plan (1) Pneumonia Current visit: Yes Status: Acute (2) Hypoxia Current visit: Yes Status: Acute (3) Supratherapeutic INR Current visit: Yes Status: Acute (4) Elevated troponin Current visit: Yes Status: Acute Assessment and Plan: I have independently interviewed and examined the patient. I have reviewed the medical record. The plan has been discussed and formulated with GEM TECHNICIAN as above with the additions below. Patient is sleeping but awakens and answers questions. and daughter present. The say she was not up to the chair quite as long this morning. Lungs are diminished. Heart is regular. Abd is benign. No edema. Na trending down. Increase K with diuresis. Will start mirtazapine. Increase Miralax to bid. Hospital Course Summary Disclaimer: The visit summary below is not to be considered part of the above Progress Note. Hospital Course: 09/02/17 16:24 Na trending down. Increase K with diuresis. Will start mirtazapine. Increase Miralax to bid.
[2017-09-02] MEDS ORDERED: BISACODYL 10 MG SUPPOSITORY RECTALLY ONE (10:14)
[2017-09-02] MEDS ORDERED: WARFARIN 1 MG TABLET PO SCH (12:00)
[2017-09-02] MEDS: CETIRIZINE 10 MG TABLET PO SCH (20:46)
[2017-09-02] MEDS ORDERED: MIRTAZAPINE 15 MG TABLET PO SCH (21:00)
[2017-09-03] MEDS: FUROSEMIDE 40 MG/4 ML INJECTION IVP SCH ×2 (01:01→08:48)
[2017-09-03] MEDS: SALINE FLUSH 10ml SYRINGE IVF PRN ×4 (01:30→20:32)
[2017-09-03] MEDS: ALBUTEROL/IPRATROPIUM 2.5mg-0.5mg/3ml NEB AEROSOL SCH ×3 (05:10→11:30)
[2017-09-03] MEDS: LEVOTHYROXINE 88 MCG TABLET PO SCH (05:33)
--- NOTE | 2017-09-03 07:07 | Pharmacy Consult ---
Pharmacy Consult-Warfarin - Laboratory Information 08/27/17 08/28/17 08/28/17 04:34 04:45 13:26 INR 6.91 H* 8.93 H* 5.97 H* 08/29/17 08/30/17 08/31/17 05:15 04:08 04:20 INR 1.85 H 1.48 H 1.64 H 09/01/17 09/02/17 09/03/17 04:56 04:27 03:53 INR 1.91 H 2.51 H 3.16 H - Consult Information We will not give warfarin today. I have discontinued enoxaparin. Thanks
[2017-09-03] MEDS: BUDESONIDE INH.SOLN 0.5mg/2ml NEB AEROSOL SCH (08:04)
[2017-09-03] MEDS: acetaZOLAMIDE 250 MG TABLET PO SCH ×2 (08:47→09:19)
[2017-09-03] MEDS: GUAIFENESIN 400MG TABLET PO SCH ×2 (08:47→09:19)
[2017-09-03] MEDS: FLECAINIDE 50 MG TABLET PO SCH ×2 (08:47→09:19)
[2017-09-03] MEDS: AMLODIPINE 5 MG TABLET PO SCH ×2 (08:47→09:17)
[2017-09-03] MEDS: ACETAMINOPHEN 325 MG TABLET PO PRN (08:48)
[2017-09-03] MEDS: SALINE 0.65% NASAL SPRAY 44 ML BOTTLE EA NOSTRIL SCH ×4 (08:48→20:32)
[2017-09-03] MEDS: SENNA + DOCUSATE TABLET PO SCH ×2 (08:48→09:19)
[2017-09-03] MEDS: METHYLPREDNISOLONE SOD SUCC 125mg/2ml INJECTION IVP SCH (08:49)
[2017-09-03] MEDS: POLYETHYL GLYCOL 3350 17gm PACKET PO SCH ×2 (08:50→09:20)
[2017-09-03] MEDS: CEFTRIAXONE 1 G in NS 100 ML IV SCH (08:50)
[2017-09-03] MEDS ORDERED: D5W 1,000 ML IV SCH (09:30)
--- NOTE | 2017-09-03 12:43 | Progress Note ---
- Date 09/03/17 Subjective: Marie is up to a chair and quite lethargic. She opens eyes to commands. When asked about her not eating or drinking very well and whether she would want a feeding tube, she said no. Na up to 154 and wbc elevated. d/w , son, daughter and [id number]. Her thinks that she is suffering and that she would not want to continue like this. Family agrees. Comfort care was discussed, and family chose to start comfort care. Objective Vital signs: Temperature 97.1 F 09/03/17 07:11 Pulse Rate 78 09/03/17 08:00 Respiratory Rate 24 09/03/17 11:30 Blood Pressure 145/69 H 09/03/17 07:11 Pulse Oximetry 96 09/03/17 11:32 Height/Weight/BMI: Height 5 ft 6 in Weight 79.7 kg Body Mass Index 30.4 - Constitutional Present: somnolent - Routine HEENT Exam Eye: Present: EOMI ENT: Present: mucous membranes moist, dentition normal - Routine Respiratory Exam Present: diminished air movement - Routine Cardiovascular Exam Present: RRR. Absent: murmur - Routine Abdominal Exam Present: soft, normoactive bowel sounds, non distended. Absent: tenderness - Routine Extremities Exam Present: edema - Routine Skin Exam Present: dry, warm Results - Labs CBC & Chem 7: 09/03/17 03:53 09/03/17 03:53 Microbiology Results: Microbiology 08/26/17 06:42 Sputum, Expectorated Gram Stain - Final 08/26/17 06:42 Sputum, Expectorated Sputum Culture - Final Normal Respiratory Yoselin - ABG Interpretation ABG results: 09/01/17 13:06 ABG pH 7.430 ABG pCO2 46 H ABG pO2 77 L ABG HCO3 31 H ABG Total CO2 31.9 H ABG O2 Saturation 96.0 ABG Base Excess 5.3 H Assessment and Plan (1) Pneumonia Current visit: Yes Status: Acute (2) Hypoxia Current visit: Yes Status: Acute (3) Supratherapeutic INR Current visit: Yes Status: Acute (4) Elevated troponin Current visit: Yes Status: Acute Assessment and Plan: IAcute hypoxic respiratory failure requiring noninvasive ventilation Pulmonary edema - increasing from admission Afib with RVR - currently in sinus Suspect pulmonary fibrosis; emphysema Possible pneumonia Leukocytosis COPD/Emphysema Stage III CKD HTN Anticoagulation with Coumadin - INR elevated admission Hypernatremia (Not POA) Hypokalemia (Not POA) Constipation Plan: Have started comfort care measures. Morphine and Ativan available prn. d/ w CM and hospice will be consulted Hospital Course Summary Disclaimer: The visit summary below is not to be considered part of the above Progress Note. Hospital Course: 09/02/17 16:24 Na trending down. Increase K with diuresis. Will start mirtazapine. Increase Miralax to bid. 09/03/17 13:19 Acute hypoxic respiratory failure requiring noninvasive ventilation Pulmonary edema - increasing from admission Afib with RVR - currently in sinus Suspect pulmonary fibrosis; emphysema Possible pneumonia Leukocytosis COPD/Emphysema Stage III CKD HTN Anticoagulation with Coumadin - INR elevated admission Hypernatremia (Not POA) Hypokalemia (Not POA) Constipation Plan: Have started comfort care measures. Morphine and Ativan available prn. d/ w CM and hospice will be consulted
[2017-09-03] MEDS: MORPHINE SULFATE 2mg INJECTION IVP PRN (12:46)
[2017-09-04] MEDS: MORPHINE SULFATE 2mg INJECTION IVP PRN ×2 (04:50→15:00)
[2017-09-04 07:42] VITALS: TEMP 97.4
--- NOTE | 2017-09-04 08:54 | Discharge Summary ---
<CameronJaquelin D - Last Filed: 09/04/17 09:23> Discharge Information Date of admission: 08/25/17 20:45 Anticipated date of discharge: 09/04/17 Attending Physician: Kelvin De Souza IV, MD Primary care physician: Josh Gomes MD Consults: Consulting Provider: Tristen Schwartz Reason For Exam: hypoxia, A fib RVR Consulting Provider: Cliff Mari Reason For Exam: resp failure Hospice Consult [CONS] Routine Comment: [facility] - Discharge Diagnosis (1) Acute respiratory failure with hypoxia Status: Acute (2) Atrial fibrillation with RVR Status: Acute (3) Pulmonary edema Status: Acute Hypoxic respiratory failure, A-fib with RVR, pulmonary edema Hospice care - Procedures Procedures: Type of Exam(s): US echo doppler complete DATE OF PROCEDURE: August 28, 2017 IMPRESSION 1. Normal LV systolic function with ejection fraction of 65%. 2. Biatrial dilation. 3. Mild left ventricular hypertrophy. 4. Mild mitral regurgitation. 5. Mild tricuspid regurgitation with moderate pulmonary hypertension with estimated pulmonary artery systolic pressure of 51. 6. Mild pulmonary insufficiency. PORRAS WAS INSERTED ON 08/28/17 AND LEFT IN AT TIME OF DISCHARGE FOR COMFORT CARE PURPOSES. - Laboratory Labs: 09/03/17 03:53 09/03/17 03:53 - Microbiology Microbiology 08/26/17 06:42 Sputum, Expectorated Gram Stain - Final 08/26/17 06:42 Sputum, Expectorated Sputum Culture - Final Normal Respiratory Keerthi - Radiology Radiology: CHEST 2-VIEWS UPRIGHT (PA & LAT) Date of Exam: 08/26/17 FINDINGS: No change in appearance of the abnormal lung zelaya with severe emphysema and fibrosis allowing for differences in exposure technique. No pneumothorax or definite effusion. Heart size and mediastinal contours are stable. Hiatal hernia. Pulmonary vascularity is difficult to distinguish given the diffuse abnormalities. IMPRESSION: Stable abnormal appearance of the chest. Findings may represent a combination of emphysema, fibrosis and atypical/viral pneumonia or edema. Recommend clinical and laboratory correlation. CHEST 1-VIEW Date of Exam: 08/28/17 FINDINGS: The heart size is upper limits normal. There is moderate calcific atherosclerotic disease of the thoracic aorta. Interval increase in diffuse interstitial and alveolar opacities within the bilateral lungs likely superimposed on chronic interstitial changes. Findings may reflect atypical pneumonia/ARDS and follow-up is recommended. There are no visible pleural effusions. There is no pneumothorax.The osseous structures are stable. IMPRESSION: Interval increase in diffuse interstitial/alveolar opacities within the bilateral lungs likely superimposed on chronic interstitial changes. The findings may reflect worsening atypical pneumonia or ARDS/edema and follow-up is recommended. CHEST 1-VIEW Date of Exam: 08/30/17 FINDINGS: The heart is enlarged. Prominent and indistinct. However this has improved compared to the prior exam. Increased interstitial markings at the mid to lower lungs are again noted but is improved. However this persists, particularly at the left mid and lower lung. There is no evidence for pleural effusion. There is no evidence for a pneumothorax. No osseous abnormalities are identified. IMPRESSION: 1. Cardiomegaly. 2. Interval improvement in pulmonary vascular congestive changes and interstitial edema pattern. CHEST 1-VIEW Date of Exam: 08/31/17 FINDINGS: Cardiomediastinal silhouette is stable, the heart remains mildly enlarged. The trachea is midline is no evidence mediastinal widening. There are again noted bilateral interstitial opacities are essentially unchanged when compared to the prior examination. No dense focal airspace consolidation is seen. The costophrenic angles remain clear. The bony thorax is stable. IMPRESSION: Cardiomegaly with no significant interval change in the interstitial edema/congestive changes. History of Present Illness HPI: 89 yo F with PMH of PE currently on Coumadin presented to the ED with reports of weakness and increased SOA. She was seen in the ED a few days ago and DX with PNA, sinusitis and started on Zithromax. She was offered admission, but declined at that time. She went home and did take her ABX as prescribed. But she continued to decline at home. She reports fevers and chills at home, but did not take her temp. She denies any nausea/vomiting or chest pain. She does not wear O2 at home but noted that her O2 sats are mid 70s on RA. She required 3 -4L NC to improve her sats. She was admitted for further care. Objective Vital signs: Temperature 97.4 F 09/04/17 07:41 Pulse Rate 83 09/04/17 07:41 Respiratory Rate 24 09/04/17 07:41 Blood Pressure 122/69 09/04/17 07:41 Pulse Oximetry 94 09/03/17 23:24 Height/Weight/BMI: Height 1.68 m Weight 77.3 kg Body Mass Index 30.4 - Constitutional Present: no acute distress, thin, obtunded - Routine HEENT Exam ENT: Present: mucous membranes dry - Routine Respiratory Exam Present: diminished air movement - Routine Cardiovascular Exam Present: irregularly irregular - Routine Abdominal Exam Present: soft. Absent: normoactive bowel sounds (hypoactive) - Routine Extremities Exam Present: edema (trace) - Routine Skin Exam Present: dry, petechiae (arms), warm - Routine Neurological Exam Absent: alert (unarousable), oriented X3 Hospital Course This is a general summary of the patient's hospital course. For more details refer to the complete medical record. Hospital course: DISCHARGE DIAGNOSES Acute hypoxic respiratory failure requiring noninvasive ventilation Pulmonary edema - increasing from admission Afib with RVR - currently in sinus Suspect pulmonary fibrosis; emphysema Possible pneumonia Leukocytosis COPD/Emphysema Stage III CKD HTN Anticoagulation with Coumadin - INR elevated admission Hypernatremia (Not POA) Hypokalemia (Not POA) Constipation HOSPITAL COURSE SUMMARY Mrs. Staples was admitted to the hospitalist services on 08/27/17 for A-fib with RVR, hypoxia, elevated trop, supratherapeutic INR (>6, later up to >8). A-fib with RVR: Dr. Schwartz was consulted and started Flecainide. She converted to SR soon after admission. Echo was obtained, showing an EF of 65%, mild valvular dysfunction and moderate pulmonary hypertension. On 09/04/17 her heart rate was irregularly irregular on exam. Hypoxia/Possible pneumonia/Respiratory failure: Levaquin was given x1 dose but discontinued d/t potential for encephalopathy and interaction with Coumadin; Rocephin was started for possible pneumonia, and she ultimately completed a 7- day course. Sputum later grew out normal keerthi and over the course of hospitalization pneumonia felt less likely. High dose IV steroids were initiated. Immunizations including influenza and Tdap were updated. She required BiPAP support and was unable to tolerate being off BiPAP even to eat. Her sats dropped quickly into the 70s on high-flow oxygen. Speech therapy was consulted and recommended a soft diet as tolerated - mostly limited by respiratory status. On 10/28/17 a Porras catheter was inserted as IV diuresis was initiated. CXR was suggestive of possible pulmonary fibrosis as well. Dr. Mari was consulted, and felt the problem was more associated with pulmonary edema and recommended diuresis. With diuresis there was mild increase in creatinine to 1.6 and Losartan was held. By 08/30/17 she was able to tolerate being off BiPAP and was able to maintain sats on 15L per NC. Steroids were tapered. With ongoing IV Lasix use, her pulmonary edema slowly improved but sodium increased while potassium decreased. On 08/31/17 she was started on gentle IVF of D5 + KCl. Diamox had been added for contraction alkalosis. By the following day Na and K had improved slightly but then again worsened by time of discharge. Anticoagulation: Supratherapeutic INR on admission with INR peak at >8. Pharmacy was consulted to manage Coumadin dose and her INR was reversed with oral Vitamin K on 08/28/17. Later, she required temporary bridging with Lovenox as her INR dropped <2. On 09/02/17 her INR was therapeutic. Platelet counts gradually declined and she developed petechiae to her arms. On day of discharge platelets were 69. Oral intake/Constipation: She was unable to eat d/t respiratory limitations and her bowels were slow. TPN was considered but given her high degree of pulmonary edema there was concern about worsening respiratory status. As she began eating , a more aggressive bowel regimen was introduced. She finally had a bowel movement on 09/02/17 and again on 09/03/17. Mirtazapine was started on . Activity: She became quite debilitated from her acute illness and PT/OT was consulted. Prior to hospitalization she was independent in all ADLs. However, even being in a chair was difficult for her and wore her out. She was very fatigued and was sleeping frequently during the day. On 09/03/17, Mr. Staples opted for comfort care measures. She had indicated earlier in her hospitalization that she would not want intubation or PEG placement. She was already DNR. Ativan and Morphine were added to her medication list to help with comfort and air hunger symptoms, and Rx were provided at discharge. All other medications were discontinued. Porras catheter was left in place for comfort. On 09/04/17, she was somnolent. Her heart rate was irregularly irregular. Family had met with [facility] and intends to sign on to service. She was discharged to [facility] under the auspices of comfort care/hospice on 09/04/17. Time spent with patient: discharge greater than 30 minutes Discharge Plan - Discharge Disposition Discharge Date: 09/04/17 Disposition: 04 To [facility] Home/Facility *Condition: Stable *Reason For Visit: Hypoxia, Pneumonia - Discharge Medications *Discharge Medications: New Morphine Sulfate Oral Liq [Roxanol Oral Liq] 5 - 15 mg SL Q4H PRN #4 syringe PRN Reason: Agitation/Air Hunger/Pain LORazepam INTENSOL [Ativan Intensol] 0.5 - 1 mg PO Q4H PRN #4 ml PRN Reason: Air Hunger/Anxiety Discontinued Aspirin [ASA] 325 mg PO PRN PRN PRN Reason: Pain Warfarin [Coumadin] 2 mg PO TUTHSA Amlodipine [Norvasc] 5 mg PO DAILY guaiFENesin [Mucinex] 600 mg PO Q12H PRN PRN Reason: Prn Orders Levothyroxine Tab [Synthroid] 88 mcg PO ACB Azithromycin 250 mg PO DAILY #6 tab Losartan Potassium [Cozaar] 50 mg PO DAILY #0 Warfarin Sodium [Coumadin] 3 mg PO SUMOWEFR #0 Cholecalciferol (Vitamin D3) [Maximum D3] 10,000 unit PO MOFR - Discharge Packet/Instructions *Diet: As tolerated for comfort. Keep lips moist. *Activity: Comfort care. *Pain Management/Treatment: Ativan and Roxanol PRN. *Wound Care: Provide good skin care to prevent breakdown. *Expected Signs/Symptoms: May have signs of restlessness and air hunger. Use PRN medications. *Notify Physician if: Uncontrolled symptoms such as dyspnea, air hunger, nausea , pain. *During Business Hours Contact: Contact Dr. Gomes or [facility]'s Jose David Ren RN. *After Business Hours Contact: Contact Berto Ren RN. *Pending Lab/Results: No Pending Lab - Referrals/Follow Up - Patient Handouts - Dismissal Complete Discharge Instructions are:: Complete <Kelvin De Souza IV - Last Filed: 09/04/17 14:06> Discharge Information Date of admission: 08/25/17 20:45 Attending Physician: Kelvin De Souza IV, MD Primary care physician: Josh Gomes MD Consults: 08/26/17 10:54 Physician Consult [CONS] Routine Consulting Provider: Tristen Schwartz Reason For Exam: hypoxia, A fib RVR Ordering Provider has Notified [employer]: Yes 08/29/17 10:11 Physician Consult [CONS] Routine Consulting Provider: Clfif Mari Reason For Exam: resp failure Ordering Provider has Notified [employer]: Yes 09/03/17 16:47 Hospice Consult [CONS] Routine Comment: [facility] 09/04/17 08:49 Doctor [Physician Consult] [CONS] Routine Consulting Provider: Connie Abbott Reason For Exam: hospice admit to facility Ordering Provider has Notified [employer]: Yes 09/04/17 09:25 Doctor [Physician Consult] [CONS] Routine Consulting Provider: [facility] Reason For Exam: hospice care Ordering Provider has Notified [employer]: Yes - Discharge Diagnosis (1) Atrial fibrillation with RVR Status: Acute (2) Acute respiratory failure with hypoxia Status: Acute (3) Pulmonary edema Status: Acute - Laboratory Labs: 09/03/17 03:53 09/03/17 03:53 - Microbiology Microbiology 08/26/17 06:42 Sputum, Expectorated Gram Stain - Final 08/26/17 06:42 Sputum, Expectorated Sputum Culture - Final Normal Respiratory Keerthi Objective Vital signs: Temperature 97.4 F 09/04/17 07:41 Pulse Rate 83 09/04/17 07:41 Respiratory Rate 24 09/04/17 07:41 Blood Pressure 122/69 09/04/17 07:41 Pulse Oximetry 94 09/03/17 23:24 Height/Weight/BMI: Height 5 ft 6 in Weight 77.3 kg Body Mass Index 30.4 Hospital Course This is a general summary of the patient's hospital course. For more details refer to the complete medical record. Hospital course: I have independently interviewed and examined the patient. I have reviewed the medical record. The plan has been discussed and formulated with [employer] as above with the additions below. Patient shakes her head when asked whether she is in pain. d/w and daughter. All questions answered. Lungs diminished. Heart irregular. Abdomen s/nt/nd. Continue comfort care measures. Family has decided on [facility], and patient will dismiss to [facility].
--- NOTE | 2017-09-04 09:56 | Extended Care Facility Orders ---
Admission Orders Admit to:: [facility] Allergies/Adverse Reactions: Allergies gabapentin Adverse Reaction (Severe, Verified 08/26/17 10:54) Hallucinating VERIFIED PER DR MARQUES, 08-26-17 fluorouracil Adverse Reaction (Unknown, Verified 08/25/17 17:54) sertalege Adverse Reaction (Mild, Uncoded 08/22/17 12:22) Hallucinating Admitting Diagnosis: Respiratory failure; comfort care Admitting Physician: Kelvin De Souza IV, MD Attending Physician: Kelvin De Souza IV, MD Code Status: Do Not Resuscitate Anticiapted Length of Stay: 30 days or less Rehab Potential: poor Rehab Prognosis: poor Diet: Comfort care. Diet as tolerated. May use Facility Protocol or Standing Orders: Yes May have flu vaccine: No (Updated during hospitalization) Intermediate Certification: I certify that SNF services are required to be given on an Inpatient basis because of the patient's need for custodial care on a continuing basis for the condition(s) for which she received inpatient hospital services prior to her transfer to the SNF. SNF inpatient care is necessary for the following reasons Indication for Intermediate: Not Applicable (Hospice consulted) - Additional Information In Event of Arrest: Do Not Start CPR Resident is Aware of Diagnosis: Yes Additional Orders: Oxygen for comfort care. [place] for comfort care.
[2017-09-04] MEDS: SALINE FLUSH 10ml SYRINGE IVF PRN (15:01)
[2017-09-04 15:04] VITALS: BP 153/74; PULSE 82; RESP 20; O2SAT 95
== END 2017-09-04 15:35 | disposition hospice, home (50) | DRG 189 ==
LOC: ED 17:36 → MED 20:10 → SUATTDRO 20:45 → MED 20:45
PROVIDERS: ADMIT Internal Medicine; ATTEND Hospitalist